=== PATIENT | male | born 1990 | race Caucasian/White ===

== ENCOUNTER 2018-01-27 22:31 | Inpatient (IN) | payer BC, MEDICAID ==
[2018-01-27] MEDS ORDERED: Sodium Chloride 0.9% 1000 ML 1,000 ML IV STA (23:15)
[2018-01-27] MEDS ORDERED: LEVOFLOXACIN 750MG/150ML D5W 750 MG/150 ML BAG IV STA (23:16)
[2018-01-27] MEDS ORDERED: Sodium Chloride 0.9% 1000 ML 1,000 ML ONE ×2 (23:20→23:32)
[2018-01-27] MEDS: Sodium Chloride 0.9% 1000 ML 1,000 ML IV SCH ×2 (23:22→23:39)
[2018-01-27] MEDS ORDERED: LEVOFLOXACIN 750MG/150ML D5W 750 MG/150 ML BAG IV ONE (23:32)
[2018-01-27] MEDS ORDERED: DUONEB 0.5-3 MG/3 ml Neb IH ONE ×2 (23:43→23:56)
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
[2018-01-27 23:51] LABS: Lactic Acid 3.1 (0.4-2.0)
[2018-01-27 23:54] LABS: VBG BASE EXCESS 2.3 (-2.0-2.0); VBG CARBOXYHEMOGLOBIN 4.3 % T HGB (0.0-6.9); VBG HCO3- 27.9 meq/L (22-28); VBG HEMOGLOBIN 18.2; VBG O2 SATURATION 63.2 (95-100); VBG POTASSIUM 4.3 (3.5-5.1); VBG pH 7.4 (7.32-7.42)
[2018-01-27 23:58] LABS: Granulocyte Absolute (ANC) 9.49 (1.4-6.9); Hematocrit 53.2 % (42-50); Hemoglobin 18.3 gm/dl (12.5-18.0); Mean Cell Volume 92.7 fl (78-100); Mean Corpuscular Hgb Concent. 34.4 g/dl (32-36); Mean Platelet Volume 12.2 fl (6-9.5); Platelet Count 235 K/mm3 (150-450); Red Blood Count 5.74 M/mm3 (4.1-5.6); Red Cell Distribution Width 14.9 % (11.5-14.0); White Blood Count 13.5 K/mm3 (4.0-10.5)
[2018-01-27 23:59] LABS: Mean Corpuscular Hemoglobin 31.8 pg (26-32)
[2018-01-28 00:10] LABS: INR 1.13 (0.8-3.0)
[2018-01-28 00:16] LABS: ALBUMIN 4.1 g/dL (3.5-5.0); ALKALINE PHOSPHATASE 190 U/L (38-126); ANION GAP 16.1 MEQ/L (5-15); BLOOD UREA NITROGEN 11 mg/dL (9-20); CHLORIDE 97 mmol/L (98-107); Calcium 9.6 mg/dL (8.4-10.2); Carbon Dioxide 28 mmol/L (22-30); Creatinine 1 0.43 mg/dL (0.66-1.25); Glucose 106 mg/dL (74-106); Potassium 4.3 mmol/L (3.5-5.1); SGOT/AST 161 U/L (17-59); SGPT/ALT 189 U/L (0-50); SODIUM 137 mmol/L (137-145); Total Protein 7.9 g/dL (6.3-8.2)
[2018-01-28] MEDS ORDERED: Sodium Chloride 0.9% 1000 ML 1,000 ML ONE ×2 (00:20→01:52)
[2018-01-28] MEDS ORDERED: Sodium Chloride 0.9% 1000 ML 1,000 ML IV STA (00:20)
[2018-01-28] MEDS ORDERED: Vancomycin 1GM/ Ns 250ML*** 1 GM/250 ML IVPB IV ONE (00:20)
[2018-01-28 00:34] LABS: INFLUENZA A NEGATIVE (NEGATIVE); INFLUENZA B NEGATIVE (NEGATIVE); RESPIRATORY SYNCTIAL VIRUS NEGATIVE (Negative)
[2018-01-28] MEDS ORDERED: FEVERALL 650 MG PR ONE (00:39)
[2018-01-28] MEDS ORDERED: FEVERALL 325 MG ONE (00:39)
[2018-01-28 00:52] LABS: Appearance CLEAR (CLEAR)
[2018-01-28 00:53] LABS: Bilirubin NEGATIVE (NEGATIVE); Blood NEGATIVE Ery/ul (0-5); Glucose NEGATIVE (NEGATIVE); Ketones NEGATIVE (NEGATIVE); Leukocyte Esterase NEGATIVE (NEGATIVE); Nitrite NEGATIVE (NEGATIVE); Protein,Urine Dip NEGATIVE (Negative); Urobilinogen NORMAL mg/dL (0-1)
[2018-01-28] MEDS ORDERED: Vancomycin 1GM/ Ns 250ML*** 250 ML IV ONE (01:09)
[2018-01-28] MEDS ORDERED: DUONEB 0.5-3 MG/3 ml Neb IH PRN (02:08)
[2018-01-28] MEDS ORDERED: Xopenex 1.25 MG/0.5 ML UD NEBULE IH PRN (02:08)
[2018-01-28] MEDS ORDERED: Sodium Chloride 0.9% 1000 ML 1,000 ML IV SCH (02:15)
[2018-01-28] MEDS ORDERED: VANCOCIN 1 GM VIAL*** 1 GM in Sodium Chloride 0.9% 250 ML 250 ML IV SCH (02:30)
[2018-01-28 03:06] LABS: ANISOCYTOSIS 1+; Lymphocytes 14 % (24-44); Monocyte 12 % (0.0-12.0); Neutrophils 74 % (36.-66.); Platelet Estimate NORMAL (NORMAL); Poikilocytosis 1+; Total Cells Counted 100
[2018-01-28] MEDS ORDERED: DUONEB 0.5-3 MG/3 ml Neb IH ONE (03:08)
[2018-01-28] MEDS: DUONEB 0.5-3 MG/3 ml Neb IH PRN (03:15)
[2018-01-28 06:18] LABS: ANION GAP 10.9 MEQ/L (5-15); BASOPHIL % 0.2 % (0.0-0.4); BLOOD UREA NITROGEN 9 mg/dL (9-20); Basophil (Absolute #) 0.02 (0-0.4); CHLORIDE 106 mmol/L (98-107); Calcium 7.8 mg/dL (8.4-10.2); Carbon Dioxide 25 mmol/L (22-30); Creatinine 1 0.27 mg/dL (0.66-1.25); Eosinophil (Absolute #) 0 (0-0.5); Glucose 113 mg/dL (74-106); Granulocyte Absolute (ANC) 9.07 (1.4-6.9); Granulocytes % 75.8 % (36.0-66.0); Hematocrit 39.5 % (42-50); Hemoglobin 13.5 gm/dl (12.5-18.0); Lymphocyte (Absolute #) 1.43 (1.0-4.6); Mean Corpuscular Hemoglobin 32.5 pg (26-32); Mean Corpuscular Hgb Concent. 34.2 g/dl (32-36); Mean Platelet Volume 12.4 fl (6-9.5); Monocyte (Absolute #) 1.44 (0.0-1.3); Platelet Count 177 K/mm3 (150-450); Potassium 3.8 mmol/L (3.5-5.1); Red Blood Count 4.16 M/mm3 (4.1-5.6); Red Cell Distribution Width 14.5 % (11.5-14.0); SODIUM 138 mmol/L (137-145)
[2018-01-28] MEDS: Sodium Chloride 0.9% 1000 ML 1,000 ML IV SCH ×2 (07:25→16:46)
[2018-01-28] MEDS ORDERED: PATIENT OWN MEDICATION IJ SCH (08:15)
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
[2018-01-28] MEDS: VANCOCIN 1 GM VIAL*** 1 GM in Sodium Chloride 0.9% 250 ML 250 ML IV SCH ×2 (09:05→17:01)
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
[2018-01-28] MEDS: Depakene 250 MG/5 ML Syrup G-TUBE SCH ×2 (09:25→20:52)
[2018-01-28] MEDS: MULTIVITAMIN LIQUID G-TUBE SCH (09:26)
[2018-01-28] MEDS: Robitussin 100 MG/5 ML PO SCH ×2 (09:28→20:51)
[2018-01-28] MEDS ORDERED: VALPROIC ACID 250 MG G-TUBE SCH (10:00)
[2018-01-28] MEDS ORDERED: BACLOFEN INTRATHEC SCH (10:00)
[2018-01-28] MEDS ORDERED: Levofloxacin 500MG/100ML D5W 500 MG/100 ML BAG IV SCH (10:00)
[2018-01-28] MEDS ORDERED: FERROUS FUM G-TUBE SCH (10:00)
[2018-01-28] MEDS ORDERED: MULTIVIT MINERALS G-TUBE SCH (10:00)
[2018-01-28] MEDS ORDERED: XYLOCAINE 1% HCL 20 ML MDV IJ ONE (14:27)
--- NOTE | 2018-01-28 15:15 | XRAY ---
Indication: Status post left thoracentesis. Comparison: One day earlier. Portable chest demonstrates marked clearing of the left effusion with residual trace effusion and atelectasis. No pneumothorax. Stable right base discoid atelectasis and support catheter/tubing. Heart is not enlarged. Impression: Status post left thoracentesis. No pneumothorax.
--- NOTE | 2018-01-28 15:45 | XRAY ---
Indication: Left pleural effusion. Thoracentesis for therapeutic and diagnostic purpose. Informed consent obtained with power of banking attorney. Initial sonographic imaging of the left lower back was performed for localization. Skin was prepped and draped in sterile fashion. 1% lidocaine plain used for local anesthesia. Tiny skin incision made. Then a 5 [place] M[place]ang thoracentesis catheter with introducer needle was inserted into the left hemithorax. Small flash of effusion seen in the syringe at which point the outer catheter was advanced and the inner needle removed. Catheter was then connected to a Vacutainer. Approximately 1.8 L dark marie/brown transudative fluid was aspirated. Fluid was sent to laboratory for analysis. Repeat sonogram demonstrates effusion clearing. Hemostasis achieved using digital pressure over the puncture site. Small Band-Aid applied. Postoperative instructions and orders given. Postprocedure chest radiograph pending. Impression: Technically successful left chest thoracentesis using ultrasound guidance for diagnostic and therapeutic purpose. Approximately 1.8 L aspirated. No immediate complications.
--- NOTE | 2018-01-28 16:21 | XRAY ---
Indication: Patient is bedbound. Two-dimensional sonogram and color Doppler imaging of the major venous vessels of the left and right leg was performed. Comparison: None No thrombus seen in the examined deep venous vessels of the left and right leg including greater saphenous veins. Veins demonstrate normal compressibility. Venous waveforms are normal with and without augmentation. Impression: Left and right leg negative for DVT.
[2018-01-28] MEDS: FEVERALL 650 MG PR PRN ×2 (19:35→23:39)
[2018-01-28] MEDS: Levofloxacin 500MG/100ML D5W 500 MG/100 ML BAG IV SCH (20:51)
[2018-01-28] MEDS ORDERED: VALPROIC ACID 500 MG PO SCH (22:00)
[2018-01-28] MEDS ORDERED: Vancomycin 1GM/ Ns 250ML*** 1 GM/250 ML IVPB IV SCH (22:00)
[2018-01-29] MEDS: VANCOCIN 1 GM VIAL*** 1 GM in Sodium Chloride 0.9% 250 ML 250 ML IV SCH ×4 (02:11→22:04)
[2018-01-29] MEDS: Sodium Chloride 0.9% 1000 ML 1,000 ML IV SCH ×2 (04:52→15:48)
[2018-01-29 05:56] LABS: BASOPHIL % 0.2 % (0.0-0.4); Basophil (Absolute #) 0.02 (0-0.4); Eosinophil % 1.2 % (0.00-5.0); Eosinophil (Absolute #) 0.11 (0-0.5); Granulocyte Absolute (ANC) 5.81 (1.4-6.9); Granulocytes % 60.8 % (36.0-66.0); Hematocrit 38.4 % (42-50); Hemoglobin 12.8 gm/dl (12.5-18.0); Lymphocytes % 23.1 % (24.0-44.0); Mean Cell Volume 96.5 fl (78-100); Mean Corpuscular Hgb Concent. 33.3 g/dl (32-36); Monocytes % 14.7 % (0.0-12.0); Platelet Count 162 K/mm3 (150-450); Red Blood Count 3.98 M/mm3 (4.1-5.6); Red Cell Distribution Width 14.5 % (11.5-14.0); White Blood Count 9.5 K/mm3 (4.0-10.5)
[2018-01-29 05:58] LABS: Mean Corpuscular Hemoglobin 32.1 pg (26-32)
[2018-01-29 06:10] LABS: ALBUMIN 2.5 g/dL (3.5-5.0); ALKALINE PHOSPHATASE 97 U/L (38-126); ANION GAP 7.5 MEQ/L (5-15); BLOOD UREA NITROGEN 4 mg/dL (9-20); CHLORIDE 108 mmol/L (98-107); Calcium 8.4 mg/dL (8.4-10.2); Carbon Dioxide 29 mmol/L (22-30); Creatinine 1 0.32 mg/dL (0.66-1.25); Glucose 89 mg/dL (74-106); Potassium 3.4 mmol/L (3.5-5.1); SGOT/AST 70 U/L (17-59); SGPT/ALT 113 U/L (0-50); SODIUM 141 mmol/L (137-145); Total Protein 5.2 g/dL (6.3-8.2)
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
--- NOTE | 2018-01-29 09:13 | XRAY ---
Indication: Follow-up left thoracentesis. Multiple contiguous axial images obtained through the chest using 80 cc Isovue 370 contrast and PE protocol. Comparison: None There is satisfactory opacification of the pulmonary arteries. However respiration artifact and beam artifact from patient's arms/hands limits evaluation of the more distal lobar/segmental branches especially in the right lung. No large central pulmonary embolus. Heart is not enlarged. Aorta is normal in course and caliber. 1.1 cm left superior mediastinal node. No pathologic mediastinal/hilar/axillary lymphadenopathy. Examination of the lung parenchyma demonstrates large left effusion greatest near the base occupying 1/3 of the hemithorax with compressive atelectasis. No pleural thickening or suspicious air bubbles/pneumothorax. Tiny right effusion and right base subsegmental atelectasis. Bony thorax grossly intact with epidural catheter terminating at the T1 level. There is also a anterior chest wall catheter incompletely visualized. Incidental bilateral gynecomastia. Limited upper abdomen is unremarkable. Impression: 1. Pulmonary embolus evaluation limited due to respiration and beam artifact. No large central pulmonary embolus. 2. Residual left effusion and left lung atelectasis as detailed. Tiny right effusion and right base atelectasis. CT DI 23.29
[2018-01-29] MEDS ORDERED: TROUGH DRUG LEVELS IJ ONE (09:30)
[2018-01-29] MEDS: Depakene 250 MG/5 ML Syrup G-TUBE SCH ×2 (09:43→20:56)
[2018-01-29] MEDS: MULTIVITAMIN LIQUID G-TUBE SCH (09:43)
[2018-01-29] MEDS: Robitussin 100 MG/5 ML PO SCH ×3 (09:46→20:55)
[2018-01-29] MEDS: HYDROCODONE-ACETAMIN 2.5-108/5 ML SOLUTION G-TUBE PRN ×2 (13:04→21:18)
[2018-01-29] MEDS: ENOXAPARIN SODIUM SQ SCH (13:04)
[2018-01-29] MEDS: DUONEB 0.5-3 MG/3 ml Neb IH PRN (19:23)
[2018-01-29] MEDS: Levofloxacin 500MG/100ML D5W 500 MG/100 ML BAG IV SCH (20:54)
[2018-01-30] MEDS ORDERED: MORPHINE SULFATE 2 MG INJ IV ONE (00:07)
[2018-01-30] MEDS: VANCOCIN 1 GM VIAL*** 1 GM in Sodium Chloride 0.9% 250 ML 250 ML IV SCH ×4 (03:39→22:55)
[2018-01-30] MEDS: Sodium Chloride 0.9% 1000 ML 1,000 ML IV SCH ×5 (03:39→22:08)
--- NOTE | 2018-01-30 08:40 | XRAY ---
Indication: Pneumonia. Comparison: January 28, 2018. Portable chest remains rotated and underinflated with interval increasing left effusion/atelectasis occupying at least 50% of the hemithorax. Stable right base atelectasis and support catheter/tubing. Heart is not enlarged.
[2018-01-30] MEDS: Miralax Powder 17GM PACKET PEG SCH (08:51)
[2018-01-30] MEDS: Robitussin 100 MG/5 ML PO SCH ×4 (08:51→21:03)
[2018-01-30] MEDS: ENOXAPARIN SODIUM SQ SCH (08:52)
[2018-01-30] MEDS: MULTIVITAMIN LIQUID G-TUBE SCH (08:52)
[2018-01-30] MEDS: Depakene 250 MG/5 ML Syrup G-TUBE SCH ×2 (08:52→21:05)
[2018-01-30] MEDS ORDERED: TROUGH DRUG LEVELS IJ ONE (09:30)
[2018-01-30 09:54] LABS: ALBUMIN 2.5 g/dL (3.5-5.0); ALKALINE PHOSPHATASE 95 U/L (38-126); ANION GAP 8.8 MEQ/L (5-15); BLOOD UREA NITROGEN 3 mg/dL (9-20); CHLORIDE 104 mmol/L (98-107); Calcium 8.1 mg/dL (8.4-10.2); Carbon Dioxide 32 mmol/L (22-30); Creatinine 1 0.29 mg/dL (0.66-1.25); Glucose 88 mg/dL (74-106); Potassium 3.1 mmol/L (3.5-5.1); SGOT/AST 30 U/L (17-59); SGPT/ALT 75 U/L (0-50); SODIUM 142 mmol/L (137-145); Total Protein 5.2 g/dL (6.3-8.2)
[2018-01-30 10:20] LABS: Hematocrit 37.9 % (42-50); Hemoglobin 12.4 gm/dl (12.5-18.0); Mean Cell Volume 97.4 fl (78-100); Mean Corpuscular Hemoglobin 31.8 pg (26-32); Mean Corpuscular Hgb Concent. 32.7 g/dl (32-36); Mean Platelet Volume 11.3 fl (6-9.5); Platelet Count 167 K/mm3 (150-450); Red Blood Count 3.89 M/mm3 (4.1-5.6); Red Cell Distribution Width 14.5 % (11.5-14.0)
[2018-01-30] MEDS ORDERED: XYLOCAINE 1% HCL 20 ML MDV ONE (10:36)
[2018-01-30] MEDS: MORPHINE SULFATE 2 MG INJ IV PRN ×3 (12:40→21:48)
[2018-01-30] MEDS: HYDROCODONE-ACETAMIN 2.5-108/5 ML SOLUTION G-TUBE PRN ×2 (15:16→23:03)
[2018-01-30] MEDS: K-LYTE 25 MEQ G-TUBE SCH ×2 (17:09→21:06)
[2018-01-30] MEDS: Levofloxacin 500MG/100ML D5W 500 MG/100 ML BAG IV SCH (21:06)
[2018-01-31] MEDS: MORPHINE SULFATE 2 MG INJ IV PRN ×2 (01:59→06:50)
[2018-01-31] MEDS: VANCOCIN 1 GM VIAL*** 1 GM in Sodium Chloride 0.9% 250 ML 250 ML IV SCH ×4 (03:58→22:53)
[2018-01-31] MEDS: Sodium Chloride 0.9% 1000 ML 1,000 ML IV SCH ×3 (03:58→21:46)
[2018-01-31] MEDS: HYDROCODONE-ACETAMIN 2.5-108/5 ML SOLUTION G-TUBE PRN (07:14)
--- NOTE | 2018-01-31 07:49 | XRAY ---
Indication: Follow-up pneumonia. Left-sided chest tube. Comparison: One day earlier. Portable chest unchanged. Patient again rotated/side bent with left-sided chest tube and support catheter/tubing. Stable large left effusion/atelectasis and right base atelectasis again obscuring the cardiac silhouette. No new cardiopulmonary abnormalities.
[2018-01-31] MEDS: FEVERALL 650 MG PR PRN (08:03)
[2018-01-31] MEDS: Depakene 250 MG/5 ML Syrup G-TUBE SCH ×2 (08:59→21:47)
[2018-01-31] MEDS: MULTIVITAMIN LIQUID G-TUBE SCH (08:59)
[2018-01-31] MEDS: Miralax Powder 17GM PACKET PEG SCH (08:59)
[2018-01-31] MEDS: K-LYTE 25 MEQ G-TUBE SCH ×2 (09:02→21:45)
[2018-01-31] MEDS: ENOXAPARIN SODIUM SQ SCH (09:03)
[2018-01-31] MEDS: Robitussin 100 MG/5 ML PO SCH ×4 (09:04→21:46)
[2018-01-31] MEDS ORDERED: MORPHINE SULFATE 2 MG INJ IV PRN (14:53)
--- NOTE | 2018-01-31 15:06 | PCM.NOTE ---
Date and Time: 01/31/18 1452 Subjective Assessment: Pt with 220 cc fluid (serous) out of the chest tube. He had a small amount of stool out yesterday but has not had his typical bowel movement and family are concerned about that. His O2 requirement is 4L NC. This is increased from 2L nC initially (and none at admission). Objective Exam General Appearance: no apparent distress, other (nonverbal; makes a noise at one point during exam. appears comfortable.) Neurologic Exam: other (spastic extremities) Skin Exam: normal color, warm, dry, No rash Respiratory Exam: diminished breath sounds (very decreased on L), No rhonchi Cardiovascular Exam: regular rate/rhythm, normal heart sounds, No murmur Extremity Exam: No pedal edema OBJECTIVE DATA Vital Signs: Vital Signs - 24 hr Temp Pulse Resp BP Pulse Ox 01/31/18 11:41 98.5 F 91 H 15 101/76 95 01/31/18 07:42 100.5 F 99 H 20 95/65 95 01/31/18 07:19 99 H 20 95 01/31/18 04:00 98.8 F 116 H 19 116/85 96 01/31/18 00:00 98.9 F 99 H 18 116/87 92 L 01/30/18 20:20 87 25 H 99 01/30/18 20:00 97.6 F 86 22 111/76 98 01/30/18 15:54 100 H 17 Oxygen-Last 24 hours O2 Percentage 4 Liters = 36% O2 Percentage 4 Liters = 36% O2 Percentage 5 Liters = 40% O2 Percentage 5 Liters = 40% O2 Percentage 4 Liters = 36% Oxygen Flowrate (L/min)-RT 4 Pain Assessment - Last Documented Pain Intensity 0 Pain Scale Used Mcfadden-Thurman Faces Intake and Output: Intake & Output 01/29/18 01/30/18 01/31/18 02/01/18 11:59 11:59 11:59 11:59 Intake Total 3222 4581 4313 360 Output Total 3400 2550 2860 Balance -178 2031 1453 360 Weight 68 kg 67.9 kg 65.9 kg Lab Results: Lab Results-Last 24 Hours 01/28/18 Range/Units 14:45 [employer] Tender Cyto Report See Note H Radiology Exams: Radiology Procedures Category Date Time Status CHEST 1 VIEW (PORTABLE) Routine Exams 01/30/18 12:13 Taken CHEST 1 VIEW (PORTABLE) Routine Exams 01/31/18 05:00 Completed CHEST 1 VIEW (PORTABLE) Routine Exams 01/31/18 06:00 Ordered CHEST 1 VIEW (PORTABLE) Urgent Exams 01/30/18 08:00 Completed Assessment/Plan (1) Pleural effusion Current Visit: Yes Status: Acute Assessment & Plan: It is large, stable on yesterday's report and today's CXR with quite a bit of rotation but looks stable to me (report pending). The chest tube is draining. I spoke with Dr. Salas, surgery, and since the tube is draining well from their perspective he does not believe anything else needs to be done. Code(s): J90 - PLEURAL EFFUSION, NOT ELSEWHERE CLASSIFIED (2) Pneumonia Current Visit: Yes Status: Acute Onset Date: ~01/28/18 Qualifiers: Pneumonia type: due to unspecified organism Laterality: unspecified laterality Lung location: unspecified part of lung Qualified Code(s): J18.9 - Pneumonia, unspecified organism Assessment & Plan: On IV vancomycin day #3 and levaquin, day #4. Temp to 100.5 this morning and WBC from 9 to 12.5. Prior to this, his last elevated temperature was to 100.6 on 01/29/18. Changing levaquin to merropenem 1g IV q8h. Repeating CXR and will discuss with Dr. Childs. 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 Family are convinced this is contributing to his pleural effusion, I did try to explain that it is not. Code(s): K59.00 - CONSTIPATION, UNSPECIFIED
[2018-01-31] MEDS ORDERED: CITROMA 296 ML G-TUBE ONE (15:17)
[2018-01-31] MEDS ORDERED: HYDROCODONE-ACETAMIN 2.5-108/5 ML SOLUTION G-TUBE PRN (16:12)
[2018-01-31] MEDS: Merrem 1 GM 1 G in Sodium Chloride 100ML MINI-BAG PLUS 100 ML IV SCH ×2 (16:30→21:47)
--- NOTE | 2018-01-31 22:24 | XRAY ---
Indication: Persistent effusion. Comparison: Taken earlier in the day. Single portable chest again side bent and rotated with stable support catheter/tubing including left-sided chest tube. Minimal decreased left effusion/atelectasis with stable right base atelectasis. Heart is not enlarged. No new cardiopulmonary findings. Comment: Preliminary interpretation was made by [facility]. No discrepancy.
--- NOTE | 2018-01-31 22:27 | XRAY ---
Indication: No bowel movements. Comparison: None KUB demonstrates mild diffuse scattered fecal debris greatest in the descending, sigmoid, and rectum. No focal bowel dilatation/obstruction. Solid organs unremarkable. Osseous structures intact with levorotoscoliosis. Shunt catheter coiled in the pelvis. There is a right-sided spinal stimulator device with partially visualized single lead. Impression: Fecal stasis without obstruction. Comment: Preliminary interpretation was made by [facility]. No critical discrepancy.
[2018-02-01] MEDS: VANCOCIN 1 GM VIAL*** 1 GM in Sodium Chloride 0.9% 250 ML 250 ML IV SCH ×2 (04:35→11:39)
[2018-02-01] MEDS: Sodium Chloride 0.9% 1000 ML 1,000 ML IV SCH ×3 (04:35→21:36)
[2018-02-01 06:07] LABS: BASOPHIL % 0.1 % (0.0-0.4); Basophil (Absolute #) 0.01 (0-0.4); Eosinophil % 1.3 % (0.00-5.0); Eosinophil (Absolute #) 0.15 (0-0.5); Granulocyte Absolute (ANC) 8.97 (1.4-6.9); Granulocytes % 77.3 % (36.0-66.0); Hematocrit 36.4 % (42-50); Hemoglobin 11.9 gm/dl (12.5-18.0); Lymphocyte (Absolute #) 1.45 (1.0-4.6); Lymphocytes % 12.5 % (24.0-44.0); Mean Cell Volume 98.4 fl (78-100); Mean Corpuscular Hgb Concent. 32.7 g/dl (32-36); Mean Platelet Volume 11.3 fl (6-9.5); Monocyte (Absolute #) 1.02 (0.0-1.3); Monocytes % 8.8 % (0.0-12.0); Platelet Count 174 K/mm3 (150-450); Red Cell Distribution Width 14.6 % (11.5-14.0); White Blood Count 11.6 K/mm3 (4.0-10.5)
[2018-02-01 06:10] LABS: Mean Corpuscular Hemoglobin 32.1 pg (26-32)
[2018-02-01 06:50] LABS: ALBUMIN 2.5 g/dL (3.5-5.0); ALKALINE PHOSPHATASE 100 U/L (38-126); ANION GAP 7.3 MEQ/L (5-15); BLOOD UREA NITROGEN 5 mg/dL (9-20); CHLORIDE 101 mmol/L (98-107); Calcium 8.5 mg/dL (8.4-10.2); Carbon Dioxide 35 mmol/L (22-30); Creatinine 1 0.33 mg/dL (0.66-1.25); Glucose 92 mg/dL (74-106); Potassium 3.7 mmol/L (3.5-5.1); SGOT/AST 24 U/L (17-59); SGPT/ALT 45 U/L (0-50); SODIUM 140 mmol/L (137-145); Total Protein 5.1 g/dL (6.3-8.2)
[2018-02-01] MEDS: Merrem 1 GM 1 G in Sodium Chloride 100ML MINI-BAG PLUS 100 ML IV SCH ×3 (07:38→21:36)
[2018-02-01] MEDS: Robitussin 100 MG/5 ML PO SCH ×4 (09:06→21:35)
[2018-02-01] MEDS: Depakene 250 MG/5 ML Syrup G-TUBE SCH ×2 (10:50→21:36)
[2018-02-01] MEDS: K-LYTE 25 MEQ G-TUBE SCH ×2 (10:51→21:35)
[2018-02-01] MEDS: Miralax Powder 17GM PACKET PEG SCH (10:52)
[2018-02-01] MEDS: MULTIVITAMIN LIQUID G-TUBE SCH (10:57)
--- NOTE | 2018-02-01 11:58 | PCM.NOTE ---
Date and Time: 02/01/18 1152 Subjective Assessment: He had a small BM yesterday with mag citrate; his KUB showed stool but no impaction. CXR yesterday on repeat ended up showing some improvement. Afebrile x 24 hrs. Objective Exam General Appearance: no apparent distress, alert, other (nonverbal) Neurologic Exam: other (spastic upper and lower extremities. makes noises intermittently during exam) Skin Exam: normal color, warm, dry, No rash Respiratory Exam: diminished breath sounds (very decreased on L), No rhonchi, No wheezing Cardiovascular Exam: regular rate/rhythm, normal heart sounds, No murmur Extremity Exam: pedal edema (1+ pedal/ankle edema) OBJECTIVE DATA Vital Signs: Vital Signs - 24 hr Temp Pulse Resp BP Pulse Ox 02/01/18 08:00 98.4 F 80 18 105/64 96 02/01/18 07:26 84 18 92 L 02/01/18 04:00 98 F 74 18 92/62 97 02/01/18 00:00 98.7 F 94 H 18 112/75 97 01/31/18 19:52 78 15 99 01/31/18 19:48 98 F 84 20 103/72 98 01/31/18 16:00 99 F 86 13 105/73 99 Oxygen-Last 24 hours O2 Percentage 4 Liters = 36% O2 Percentage 4 Liters = 36% O2 Percentage 4 Liters = 36% O2 Percentage 4 Liters = 36% O2 Percentage 4 Liters = 36% Oxygen Flowrate (L/min)-RT 4 Oxygen Flowrate (L/min)-RT 4 Pain Assessment - Last Documented Pain Intensity 0 Pain Scale Used [facility] Intake and Output: Intake & Output 01/29/18 01/30/18 01/31/18 02/01/18 11:59 11:59 11:59 11:59 Intake Total 3222 4581 4313 3804 Output Total 3400 2550 2860 2920 Balance -178 2031 1453 884 Weight 68 kg 67.9 kg 65.9 kg 70 kg Lab Results: Lab Results-Last 24 Hours 01/31/18 02/01/18 02/01/18 Range/Units 15:45 05:00 05:45 WBC 11.6 H (4.0-10.5) K/mm3 RBC 3.70 L (4.1-5.6) M/mm3 Hgb 11.9 L (12.5-18.0) gm/dl Hct 36.4 L (42-50) % MCV 98.4 (78-100) fl MCH 32.1 H (26-32) pg MCHC 32.7 (32-36) g/dl RDW 14.6 H (11.5-14.0) % Plt Count 174 (150-450) K/mm3 MPV 11.3 H (6-9.5) fl Gran % 77.3 H (36.0-66.0) % Eos # (Auto) 0.15 (0-0.5) Absolute Lymphs (auto) 1.45 (1.0-4.6) Absolute Monos (auto) 1.02 (0.0-1.3) Lymphocytes % 12.5 L (24.0-44.0) % Monocytes % 8.8 (0.0-12.0) % Eosinophils % 1.3 (0.00-5.0) % Basophils % 0.1 (0.0-0.4) % Absolute Granulocytes 8.97 H (1.4-6.9) Basophils # 0.01 (0-0.4) Sodium 140 (137-145) mmol/L Potassium 3.7 (3.5-5.1) mmol/L Chloride 101 (98-107) mmol/L Carbon Dioxide 35 H (22-30) mmol/L Anion Gap 7.3 (5-15) MEQ/L BUN 5 L (9-20) mg/dL Creatinine 0.33 L (0.66-1.25) mg/dL Estimated GFR > 60.0 ML/MIN Glucose 92 (74-106) mg/dL Calcium 8.5 (8.4-10.2) mg/dL Total Bilirubin 0.30 (0.2-1.3) mg/dL AST 24 (17-59) U/L ALT 45 (0-50) U/L Alkaline Phosphatase 100 (38-126) U/L Serum Total Protein 5.1 L (6.3-8.2) g/dL Albumin 2.5 L (3.5-5.0) g/dL Valproic Acid 21.1 L (50-100) ug/mL Radiology Exams: Radiology Procedures Category Date Time Status CHEST 1 VIEW (PORTABLE) Routine Exams 01/30/18 12:13 Taken CHEST 1 VIEW (PORTABLE) Routine Exams 01/31/18 05:00 Completed CHEST 1 VIEW (PORTABLE) Routine Exams 01/31/18 06:00 Ordered CHEST 1 VIEW (PORTABLE) Routine Exams 02/02/18 07:00 Ordered CHEST 1 VIEW (PORTABLE) Urgent Exams 01/31/18 15:22 Completed KUB Stat Exams 01/31/18 15:22 Completed Assessment/Plan (1) Pleural effusion Current Visit: Yes Status: Acute Assessment & Plan: will recheck cxr today, had some improvement yesterday. Code(s): J90 - PLEURAL EFFUSION, NOT ELSEWHERE CLASSIFIED (2) Pneumonia Current Visit: Yes Status: Acute Onset Date: ~01/28/18 Qualifiers: Pneumonia type: due to unspecified organism Laterality: unspecified laterality Lung location: unspecified part of lung Qualified Code(s): J18.9 - Pneumonia, unspecified organism Assessment & Plan: changed antibiotics to merrem and vancomycin yesterday as his temp was slightly elevated to 100.5; Day #2 of meropenem today. Vancomycin stopped today after discussing with pharmacy. So initially he had 4 days of levaquin and 4 d of vancomycin. afebrile for the past 24h. WBC slightly decreased. recheck tomorrow. 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 Code(s): K59.00 - CONSTIPATION, UNSPECIFIED
[2018-02-01] MEDS ORDERED: CITROMA 296 ML PO ONE (11:59)
[2018-02-01] MEDS ORDERED: Dulcolax 10 MG SUPP PR ONE (11:59)
[2018-02-01] MEDS: ENOXAPARIN SODIUM SQ SCH (12:48)
[2018-02-01] MEDS ORDERED: Triple Antibiotic Ointment TP PRN (14:56)
--- NOTE | 2018-02-01 19:46 | XRAY ---
Indication: Follow-up chest tube and pleural effusion. Comparison: One day earlier. Portable chest again side bent and rotated with stable support catheter/tubing including left sided chest tube. Little to no improvement in the large left effusion/atelectasis. Stable right base atelectasis. Heart is not enlarged. No new cardiopulmonary abnormalities. Comment: Preliminary interpretation was made by C. No discrepancy.
[2018-02-02] MEDS: Sodium Chloride 0.9% 1000 ML 1,000 ML IV SCH ×3 (02:02→17:18)
[2018-02-02] MEDS: Merrem 1 GM 1 G in Sodium Chloride 100ML MINI-BAG PLUS 100 ML IV SCH ×3 (05:06→23:49)
[2018-02-02 05:59] LABS: BASOPHIL % 0.2 % (0.0-0.4); Basophil (Absolute #) 0.02 (0-0.4); Eosinophil % 1.9 % (0.00-5.0); Granulocytes % 72.9 % (36.0-66.0); Hematocrit 37.4 % (42-50); Hemoglobin 12.1 gm/dl (12.5-18.0); Lymphocyte (Absolute #) 1.78 (1.0-4.6); Lymphocytes % 16.7 % (24.0-44.0); Mean Cell Volume 98.4 fl (78-100); Mean Corpuscular Hemoglobin 31.8 pg (26-32); Mean Corpuscular Hgb Concent. 32.4 g/dl (32-36); Mean Platelet Volume 11.2 fl (6-9.5); Monocyte (Absolute #) 0.89 (0.0-1.3); Monocytes % 8.3 % (0.0-12.0); Platelet Count 186 K/mm3 (150-450); Red Cell Distribution Width 14.3 % (11.5-14.0); White Blood Count 10.7 K/mm3 (4.0-10.5)
[2018-02-02 06:16] LABS: ALBUMIN 2.5 g/dL (3.5-5.0); ALKALINE PHOSPHATASE 105 U/L (38-126); ANION GAP 9.1 MEQ/L (5-15); BLOOD UREA NITROGEN 6 mg/dL (9-20); CHLORIDE 102 mmol/L (98-107); Calcium 8.5 mg/dL (8.4-10.2); Carbon Dioxide 34 mmol/L (22-30); Creatinine 1 0.31 mg/dL (0.66-1.25); Glucose 100 mg/dL (74-106); Potassium 3.8 mmol/L (3.5-5.1); SGOT/AST 47 U/L (17-59); SGPT/ALT 58 U/L (0-50); SODIUM 141 mmol/L (137-145); Total Protein 5.3 g/dL (6.3-8.2)
--- NOTE | 2018-02-02 08:42 | XRAY ---
Indication: Follow-up effusion. Comparison: One day earlier. Portable chest unchanged again underinflated with left effusion/atelectasis, right base atelectasis, and support catheter/tubing. Heart is not enlarged. No new abnormalities.
[2018-02-02] MEDS: Robitussin 100 MG/5 ML PO SCH ×4 (09:11→23:53)
[2018-02-02] MEDS: MULTIVITAMIN LIQUID G-TUBE SCH (09:12)
[2018-02-02] MEDS: K-LYTE 25 MEQ G-TUBE SCH ×2 (09:14→23:53)
[2018-02-02] MEDS: Depakene 250 MG/5 ML Syrup G-TUBE SCH ×2 (09:14→23:53)
[2018-02-02] MEDS: ENOXAPARIN SODIUM SQ SCH (09:14)
[2018-02-02] MEDS: Miralax Powder 17GM PACKET PEG SCH (09:14)
--- NOTE | 2018-02-02 09:29 | XRAY ---
Indication: Chest tube placement. Comparison: Taken earlier in the day. Limited portable chest obtained with special attention to the left thorax demonstrates a new chest tube with the tip slightly coiled in the apex. Stable left effusion/atelectasis and support catheter/tubing. No pneumothorax.
--- NOTE | 2018-02-02 10:36 | OP ---
SURGERY DATE/TIME: 01/30/2018 1201 PREOPERATIVE DIAGNOSIS: Recurrent left pleural effusion with pneumonia. POSTOPERATIVE DIAGNOSIS: Recurrent left pleural effusion with pneumonia. PROCEDURE: Left chest tube. SURGEON: Jasson Mcghee M.D. IT TECHNICAL SPECIALIST: Dr. Cervantes, [facility] Resident II. ANESTHESIA: Slight MAC provided by anesthesia. INDICATION: The patient has persistent recurrent fluid. He had thoracentesis two days earlier. He has known diagnosis of pneumonia and is complicated by left pleural effusion. Chest tube was requested. The family is aware that he is a very tedious patient that he is probably not a ventilator patient or full resuscitate patient but definitely a palliative comfort patient. He is markedly debilitated. He has a button PEG. DESCRIPTION OF PROCEDURE: He is taken to surgery bumped up on the side. Routine prep and drape. Fluoro was available. Fifth interspace mid axillary line 1% lidocaine. A slight MAC provided by anesthesia. The pleural space was opened with clamp. It was enlarged with fingertip and then the tube was advanced to the apex. It was secured with 0 PDS. Vaseline gauze, sterile dressing. Hooked to suction 20 cm about 200 cc of clear effluent was obtained additionally. Fluoro was satisfactory. The patient tolerated the procedure satisfactorily.
[2018-02-03] MEDS: Sodium Chloride 0.9% 1000 ML 1,000 ML IV SCH ×2 (02:06→16:19)
[2018-02-03] MEDS: Merrem 1 GM 1 G in Sodium Chloride 100ML MINI-BAG PLUS 100 ML IV SCH ×3 (05:36→21:35)
[2018-02-03] MEDS: Robitussin 100 MG/5 ML PO SCH ×4 (10:30→21:31)
[2018-02-03] MEDS: Miralax Powder 17GM PACKET PEG SCH (10:35)
[2018-02-03] MEDS: K-LYTE 25 MEQ G-TUBE SCH ×2 (10:36→21:33)
[2018-02-03] MEDS: ENOXAPARIN SODIUM SQ SCH (10:37)
[2018-02-03] MEDS: MULTIVITAMIN LIQUID G-TUBE SCH (10:38)
[2018-02-03] MEDS: Depakene 250 MG/5 ML Syrup G-TUBE SCH ×2 (10:38→21:33)
--- NOTE | 2018-02-03 10:42 | XRAY ---
Indication: Long-term IV access and therapy for infection/pneumonia. Informed consent obtained. Patient was placed on the fluoroscopic table in a supine position. Initial sonographic imaging of the left upper extremity was performed for localization of patent veins. The left upper extremity was then prepped and draped in sterile fashion. Tourniquet applied. 1% lidocaine plain used for local anesthesia. Using ultrasound guidance and a micropuncture needle, a basilic vein above the elbow was successfully percutaneously cannulized. A floppy tip 0.018 guidewire inserted. Tourniquet released. Needle was exchanged for a 5 Nigerian dilator peel-away sheath catheter. Ultimately a 5 Nigerian double-lumen PICC line was inserted over a longer 0.018 guidewire with the tip positioned in the distal SVC using fluoroscopic guidance. Guidewire removed. Both ports flushed with heparinized saline. Catheter was secured. Postoperative instructions and orders given. Patient discharged in good condition. Impression: Technically successful left upper extremity PICC line placement using ultrasound and fluoroscopic guidance. No immediate complications. Approximately 2 cc blood loss. Approximately 1.3 minute of fluoroscopy used. Catheter length is 37.5 cm.
--- NOTE | 2018-02-03 10:44 | XRAY ---
Indication: Ultrasound guidance for PICC line placement. Initial sonographic imaging of the left upper extremity was performed for localization of patent veins. A patent basilic vein identified above the elbow. Ultrasound guidance was then used for PICC line insertion. Full PICC line insertion is reported separately.
[2018-02-03] MEDS ORDERED: HEPARIN-NS 1,000 UNITS/500 ML IV ONE (11:22)
[2018-02-04] MEDS: Merrem 1 GM 1 G in Sodium Chloride 100ML MINI-BAG PLUS 100 ML IV SCH ×3 (05:42→21:31)
[2018-02-04 05:58] LABS: BASOPHIL % 0.4 % (0.0-0.4); Basophil (Absolute #) 0.04 (0-0.4); Granulocyte Absolute (ANC) 7.26 (1.4-6.9); Hematocrit 36.3 % (42-50); Lymphocytes % 19.6 % (24.0-44.0); Mean Corpuscular Hemoglobin 31.4 pg (26-32); Mean Corpuscular Hgb Concent. 33.1 g/dl (32-36); Mean Platelet Volume 10.9 fl (6-9.5); Monocyte (Absolute #) 0.72 (0.0-1.3); Platelet Count 226 K/mm3 (150-450); Red Blood Count 3.82 M/mm3 (4.1-5.6); Red Cell Distribution Width 13.8 % (11.5-14.0); White Blood Count 10.2 K/mm3 (4.0-10.5)
[2018-02-04 06:14] LABS: ANION GAP 9.6 MEQ/L (5-15); BLOOD UREA NITROGEN 6 mg/dL (9-20); CHLORIDE 99 mmol/L (98-107); Calcium 8.7 mg/dL (8.4-10.2); Carbon Dioxide 34 mmol/L (22-30); Glucose 94 mg/dL (74-106); Potassium 3.8 mmol/L (3.5-5.1); SODIUM 138 mmol/L (137-145)
--- NOTE | 2018-02-04 08:01 | PCM.NOTE ---
Date and Time: 02/04/18 0754 Subjective Assessment: per father at bedside seems more comfortable still having significant output from the chest tube they did turn fluids down yesterday Objective Exam General Appearance: no apparent distress Neurologic Exam: other (eyes open bilateral upper and lower extremity contractures.) Skin Exam: warm, dry Ears, Nose, Throat Exam: moist mucous membranes Neck Exam: non-tender, supple Respiratory Exam: normal breath sounds, other (left sided chest tube in place with serosangenous pleural fluid drainage) Cardiovascular Exam: regular rate/rhythm, No murmur Gastrointestinal/Abdomen Exam: soft, normal bowel sounds, other (baclofen pump right lower quadrant button peg left upper quadrant), No tenderness Extremity Exam: deformities, other (picc left arm) OBJECTIVE DATA Vital Signs: Vital Signs - 24 hr Temp Pulse Resp BP Pulse Ox 02/04/18 07:45 97.6 F 87 18 149/64 93 L 02/04/18 04:00 96.9 F 102 H 13 140/66 92 L 02/04/18 00:00 97.9 F 78 20 115/62 95 02/03/18 20:00 96.5 F 80 20 110/72 96 02/03/18 19:09 115 H 22 93 L 02/03/18 16:00 97.7 F 70 16 121/71 97 02/03/18 12:21 98.5 F 77 18 110/63 93 L 02/03/18 12:00 18 02/03/18 11:09 68 18 93 L 02/03/18 10:16 67 16 97 02/03/18 08:00 18 Oxygen-Last 24 hours O2 Percentage 1 Liter = 24% O2 Percentage 1 Liter = 24% O2 Percentage 1 Liter = 24% O2 Percentage 1 Liter = 24% O2 Percentage 1 Liter = 24% O2 Percentage 2 Liters = 28% Pain Assessment - Last Documented Pain Intensity 0 [facility] Scale [facility] Intake and Output: Intake & Output 02/01/18 02/02/18 02/03/18 02/04/18 11:59 11:59 11:59 11:59 Intake Total 3804 4955 2812 1277 Output Total 2920 5210 4330 4290 Balance 884 -255 -1518 -3013 Weight 70 kg 69 kg 72.1 kg 68.6 kg Lab Results: Lab Results-Last 24 Hours 02/04/18 02/04/18 Range/Units 05:45 05:45 WBC 10.2 (4.0-10.5) K/mm3 RBC 3.82 L (4.1-5.6) M/mm3 Hgb 12.0 L (12.5-18.0) gm/dl Hct 36.3 L (42-50) % MCV 95.0 (78-100) fl MCH 31.4 (26-32) pg MCHC 33.1 (32-36) g/dl RDW 13.8 (11.5-14.0) % Plt Count 226 (150-450) K/mm3 MPV 10.9 H (6-9.5) fl Gran % 71.0 H (36.0-66.0) % Eos # (Auto) 0.20 (0-0.5) Absolute Lymphs (auto) 2.00 (1.0-4.6) Absolute Monos (auto) 0.72 (0.0-1.3) Lymphocytes % 19.6 L (24.0-44.0) % Monocytes % 7.0 (0.0-12.0) % Eosinophils % 2.0 (0.00-5.0) % Basophils % 0.4 (0.0-0.4) % Absolute Granulocytes 7.26 H (1.4-6.9) Basophils # 0.04 (0-0.4) Sodium 138 (137-145) mmol/L Potassium 3.8 (3.5-5.1) mmol/L Chloride 99 (98-107) mmol/L Carbon Dioxide 34 H (22-30) mmol/L Anion Gap 9.6 (5-15) MEQ/L BUN 6 L (9-20) mg/dL Creatinine 0.30 L (0.66-1.25) mg/dL Estimated GFR > 60.0 ML/MIN Glucose 94 (74-106) mg/dL Calcium 8.7 (8.4-10.2) mg/dL Radiology Exams: Radiology Procedures Category Date Time Status CHEST 1 VIEW (PORTABLE) Routine Exams 02/02/18 07:00 Completed GUIDE FOR VASCULAR ACCESS [US] Routine Exams 02/03/18 08:07 Completed PICC LINE PLACEMENT Routine Exams 02/03/18 10:29 Completed Assessment/Plan (1) Pleural effusion Current Visit: Yes Status: Acute Assessment & Plan: day 5 of meropenem persistent chest tube output followed by pulmonology and surgery. pulm wants < 100 mL/ 24h prior to d/c chest tube last 24hr recorded 750 mL out on tube feedings dvt ppx with lovennox pleural fluid culture and cytology negative still very fluid positive the iv fluids were decreased yesterday to 30 cc /h he is on tube feedings now consistent with his maintenence will stop iv fluids and continue tube feeds monitor pleural fluid output Code(s): J90 - PLEURAL EFFUSION, NOT ELSEWHERE CLASSIFIED (2) Pneumonia Current Visit: Yes Status: Acute Onset Date: ~01/28/18 Qualifiers: Pneumonia type: due to unspecified organism Laterality: unspecified laterality Lung location: unspecified part of lung Qualified Code(s): J18.9 - Pneumonia, unspecified organism Code(s): J18.9 - PNEUMONIA, UNSPECIFIED ORGANISM (3) Acute respiratory failure with hypoxia Current Visit: Yes Status: Acute Code(s): J96.01 - ACUTE RESPIRATORY FAILURE WITH HYPOXIA (4) Spastic paralysis Current Visit: Yes Status: Chronic Code(s): G83.9 - PARALYTIC SYNDROME, UNSPECIFIED
[2018-02-04] MEDS: Robitussin 100 MG/5 ML PO SCH ×4 (08:52→21:36)
[2018-02-04] MEDS: Depakene 250 MG/5 ML Syrup G-TUBE SCH ×2 (08:53→21:38)
[2018-02-04] MEDS: ENOXAPARIN SODIUM SQ SCH (08:54)
[2018-02-04] MEDS: K-LYTE 25 MEQ G-TUBE SCH ×2 (08:55→21:37)
[2018-02-04] MEDS: Miralax Powder 17GM PACKET PEG SCH (08:55)
[2018-02-04] MEDS: MULTIVITAMIN LIQUID G-TUBE SCH (08:56)
[2018-02-05] MEDS: Merrem 1 GM 1 G in Sodium Chloride 100ML MINI-BAG PLUS 100 ML IV SCH ×3 (06:51→21:32)
--- NOTE | 2018-02-05 08:32 | XRAY ---
Indication: Follow-up pneumonia, septicemia, and chest tube. Comparison: February 02, 2018. Portable chest demonstrates little clearing of the left effusion/atelectasis with stable right base atelectasis and support catheter/tubing. Heart is not enlarged. No new abnormalities.
--- NOTE | 2018-02-05 08:50 | PCM.NOTE ---
Date and Time: 02/05/18843 Subjective Assessment: tolerated the wean of the oxygen to room air was more uncomfortable it appeared last night nad did not sleep until 4 am per the grandmotehr last dose of pain medication was 7pm last night he has had decreased pleural fluid output and has had 2 BM Objective Exam General Appearance: no apparent distress, other (eyes open looks to the right has spasticity of bilateral upper and lower extremities.) Respiratory Exam: normal breath sounds, other (chest tube left side) Cardiovascular Exam: regular rate/rhythm Gastrointestinal/Abdomen Exam: soft, normal bowel sounds, other (G tube in place and baclofen pump in place), No tenderness, No distention Extremity Exam: other (spasticity trace edema left foot. picc left arm) OBJECTIVE DATA Vital Signs: Vital Signs - 24 hr Temp Pulse Resp BP Pulse Ox 02/05/18 07:04 89 21 92 L 02/05/18 07:03 98.5 F 84 18 124/78 95 02/05/18 04:00 97.7 F 84 16 124/78 92 L 02/05/18 00:00 96.7 F 89 15 112/75 93 L 02/04/18 20:00 20 02/04/18 19:02 96.3 F 83 20 112/70 90 L 02/04/18 16:00 98.7 F 73 16 122/69 91 L 02/04/18 12:00 97.6 F 122 H 16 142/55 91 L 02/04/18 10:00 94 L Pain Assessment - Last Documented Pain Intensity 0 Pain Scale Used [facility] Intake and Output: Intake & Output 02/02/18 02/03/18 02/04/18 02/05/18 11:59 11:59 11:59 11:59 Intake Total 5245 2812 1647 720 Output Total 5210 4330 4290 5 [facility] -255 -1518 -2643 -1315 Weight 69 kg 72.1 kg 68.6 kg 68.1 kg Radiology Exams: Radiology Procedures Category Date Time Status CHEST 1 VIEW (PORTABLE) Routine Exams 02/05/18 07:00 Completed GUIDE FOR VASCULAR ACCESS [US] Routine Exams 02/03/18 08:07 Completed PICC LINE PLACEMENT Routine Exams 02/03/18 10:29 Completed Multi-Disciplinary Progress Notes: Multi-Disciplinary Progress Notes 02/04/18 14:20 (created 02/04/18 15:19) Case Management Note by Yahaira Kruse DISCHARGE PLAN REVIEWED WITH DR. Marnie MITCHELL. REPORTS THAT HE WOULD LIKE FOR PT TO HAVE C SERVICES ON DISCHARGE FOR A FEW WEEKS. REPORTS THAT THEY CAN DO PORTABLE CXR AT HOME RATHER THAN HAVE TO TAKE PT OUT. REPORTS THAT [facility] CAN PROVIDE THAT SERVICE. WILL DISCUSS WITH PARENTS. Initialized on 02/04/18 15:19 - END OF NOTE Assessment/Plan (1) Pleural effusion Current Visit: Yes Status: Acute Assessment & Plan: day 6 of meropenem greatly decreased output of pleural fluid with the fluid restriction still with effusion and atelectasis persistent on the cxr pulmonology Dr. Juarez following will help decide on duration of antibiotics and duration of chest tube cxr had about 110 out recorded over last 24h but had an additional 100 mL out this morning after cxr with his movement it appears. Code(s): J90 - PLEURAL EFFUSION, NOT ELSEWHERE CLASSIFIED (2) Pneumonia Current Visit: Yes Status: Acute Onset Date: ~01/28/18 Qualifiers: Pneumonia type: due to unspecified organism Laterality: unspecified laterality Lung location: unspecified part of lung Qualified Code(s): J18.9 - Pneumonia, unspecified organism Code(s): J18.9 - PNEUMONIA, UNSPECIFIED ORGANISM (3) Acute respiratory failure with hypoxia Current Visit: Yes Status: Acute Code(s): J96.01 - ACUTE RESPIRATORY FAILURE WITH HYPOXIA (4) Spastic paralysis Current Visit: Yes Status: Chronic Code(s): G83.9 - PARALYTIC SYNDROME, UNSPECIFIED
[2018-02-05] MEDS: K-LYTE 25 MEQ G-TUBE SCH ×2 (09:01→21:32)
[2018-02-05] MEDS: Miralax Powder 17GM PACKET PEG SCH (09:02)
[2018-02-05] MEDS: Depakene 250 MG/5 ML Syrup G-TUBE SCH ×2 (09:03→21:32)
[2018-02-05] MEDS: ENOXAPARIN SODIUM SQ SCH (09:03)
[2018-02-05] MEDS: Robitussin 100 MG/5 ML PO SCH ×4 (09:04→21:32)
[2018-02-05] MEDS: MULTIVITAMIN LIQUID G-TUBE SCH (09:05)
[2018-02-05] MEDS: TYLENOL SUSPENSION 160 MG/5 ML G-TUBE PRN (10:51)
[2018-02-06] MEDS: TYLENOL SUSPENSION 160 MG/5 ML G-TUBE PRN (02:25)
[2018-02-06] MEDS: Merrem 1 GM 1 G in Sodium Chloride 100ML MINI-BAG PLUS 100 ML IV SCH (06:24)
[2018-02-06 07:30] VITALS: BP 110/62; PULSE 107; O2SAT 92
--- NOTE | 2018-02-06 08:33 | PCM.DCORD ---
- Discharge Discharge Date: 02/06/18 Disposition: Home, Self-Care Condition: Stable Prescriptions: New Sulfamethoxazole/Trimethoprim [Septra Suspension] 10 ml PEG BID #100 ml Continue Valproic Acid [Depakene] 500 mg PO HS Baclofen [Lioresal Intrathecal] 428 gm INTRATHEC DAILY Valproic Acid [Depakene] 250 mg G-TUBE DAILY Multivit-Minerals/Ferrous Fum [Multivitamin Liquid] 1 dose G-TUBE DAILY Additional Instructions: Provide family his office [phone] on d/c for anything concerns or questions prn. Home health RN and aid evaluate and treat Follow up with: SOSA BRICEÑO [Primary Care Provider] - 1 Week
[2018-02-06] MEDS: K-LYTE 25 MEQ G-TUBE SCH (09:03)
--- NOTE | 2018-02-06 09:03 | XRAY ---
Indication: Chest tube removal. Comparison: Taken earlier in the day. Portable chest demonstrates left chest tube removal without pneumothorax. Stable left effusion/atelectasis, right base atelectasis, and support catheter/tubing. No new cardiopulmonary abnormalities.
[2018-02-06] MEDS: ENOXAPARIN SODIUM SQ SCH (09:04)
[2018-02-06] MEDS: MULTIVITAMIN LIQUID G-TUBE SCH (09:04)
[2018-02-06] MEDS: Miralax Powder 17GM PACKET PEG SCH (09:04)
[2018-02-06] MEDS: Robitussin 100 MG/5 ML PO SCH (09:06)
[2018-02-06] MEDS: Depakene 250 MG/5 ML Syrup G-TUBE SCH (09:06)
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
== END 2018-02-06 10:15 | disposition home or self-care (01) | DRG 186 ==
LOC: ED 22:31 → ICU 01-28 02:34 → MED SURG 02-02 16:43
PROVIDERS: ADMIT Family Medicine; ATTEND Family Medicine
PROC: 0W9B30Z Drainage of Left Pleural Cavity with Drainage Device, Percutaneous Approach (ICD-10-PCS; principal; 2018-01-30)
DX: J90 Pleural effusion, not elsewhere classified (principal); J18.9 Pneumonia, unspecified organism; J96.01 Acute respiratory failure with hypoxia; A41.9 Sepsis, unspecified organism; R65.20 Severe sepsis without septic shock; G83.9 Paralytic syndrome, unspecified; Z93.1 Gastrostomy status; M62.562 Muscle wasting and atrophy, not elsewhere classified, left lower leg; M62.561 Muscle wasting and atrophy, not elsewhere classified, right lower leg; K59.01 Slow transit constipation; G40.909 Epilepsy, unspecified, not intractable, without status epilepticus
CPT/HCPCS: 00540; 32557; 36000; 36415; 36569; 71045; 71260; 74018; 76937; 77001; 80048; 80053; 80164; 80202; 81002; 82805; 82945; 83605; 83615; 84157; 85025; 85027; 85610; 87040; 87070; 87077; 87086; 87205; 87631; 88305; 88309; 89050; 89051; 93005; 93041; 93970; 94640; 94760; 99285; C1769; J1642; J1650; J1956; J2270; J3370; P9612; A9270-GY

== ENCOUNTER 2018-10-14 15:22 | Observation (INO) | payer MEDICAID ==
[2018-10-14] MEDS ORDERED: PROVENTIL 2.5 MG/3 ML NEB IH ONE ×3 (16:35→21:29)
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
[2018-10-14 16:58] LABS: BASOPHIL % 0.2 % (0.0-0.4); Basophil (Absolute #) 0.02 (0-0.4); Eosinophil % 0.6 % (0.00-5.0); Eosinophil (Absolute #) 0.07 (0-0.5); Granulocyte Absolute (ANC) 9.54 (1.4-6.9); Granulocytes % 80.1 % (36.0-66.0); Hematocrit 48.6 % (42-50); Hemoglobin 17.1 gm/dl (12.5-18.0); Lymphocytes % 9.2 % (24.0-44.0); Mean Cell Volume 94.4 fl (78-100); Mean Corpuscular Hemoglobin 33.2 pg (26-32); Mean Corpuscular Hgb Concent. 35.2 g/dl (32-36); Mean Platelet Volume 12.4 fl (6-9.5); Monocyte (Absolute #) 1.18 (0.0-1.3); Monocytes % 9.9 % (0.0-12.0); Platelet Count 83 K/mm3 (150-450); Red Blood Count 5.15 M/mm3 (4.1-5.6); Red Cell Distribution Width 14.3 % (11.5-14.0); White Blood Count 11.9 K/mm3 (4.0-10.5)
--- NOTE | 2018-10-14 17:14 | XRAY ---
Indication: Cough. Comparison: February 05, 2018. Portable chest again demonstrates patient rotated and side bent to the right. Heart is not enlarged with stable underinflated right lung, right hemidiaphragm elevation, right base atelectasis, and support tubing/catheter overlying the spine. Previous large left effusion/atelectasis markedly improved with small residual. No new cardiopulmonary abnormalities.
[2018-10-14 17:17] LABS: ANION GAP 14.4 MEQ/L (5-15); BLOOD UREA NITROGEN 12 mg/dL (9-20); CHLORIDE 98 mmol/L (98-107); Calcium 9.8 mg/dL (8.4-10.2); Carbon Dioxide 28 mmol/L (22-30); Creatinine 1 0.33 mg/dL (0.66-1.25); Glucose 90 mg/dL (74-106); NT PRO BNP 413 pg/mL (0-450); Potassium 3.9 mmol/L (3.5-5.1); SODIUM 137 mmol/L (137-145)
[2018-10-14 17:35] LABS: INFLUENZA A NEGATIVE (NEGATIVE); INFLUENZA B NEGATIVE (NEGATIVE); RESPIRATORY SYNCTIAL VIRUS NEGATIVE (Negative)
[2018-10-14 17:44] LABS: Slide Review 1 YES
[2018-10-14] MEDS ORDERED: Rocephin 1000 MG INJ IM ONE (18:18)
[2018-10-14] MEDS ORDERED: Rocephin 1000 MG INJ ONE (18:26)
[2018-10-14] MEDS ORDERED: XYLOCAINE 1% HCL 20 ML MDV ONE (18:27)
[2018-10-14] MEDS ORDERED: Sodium Chloride 0.9% 1000 ML 1,000 ML ONE (19:34)
[2018-10-14] MEDS ORDERED: Sodium Chloride 0.9% 1000 ML 1,000 ML IV SCH ×2 (19:45→21:03)
[2018-10-14] MEDS ORDERED: Zithromax 500 MG/ 250 ML NaCl Premix 500 MG/250 ML IVPB IV ONE ×2 (20:08→20:12)
[2018-10-14] MEDS ORDERED: PROVENTIL 2.5 MG/3 ML NEB IH PRN (21:30)
[2018-10-14] MEDS ORDERED: Depakene 250 MG/5 ML Syrup G-TUBE SCH (22:00)
[2018-10-14] MEDS ORDERED: TYLENOL SUSPENSION 160 MG/5 ML PO PRN ×2 (22:39→23:26)
[2018-10-14] MEDS ORDERED: Sodium Chloride 0.9% 500 ML 500 ML IV ONE (23:06)
[2018-10-14] MEDS ORDERED: TYLENOL SUSPENSION 160 MG/5 ML ONE (23:11)
[2018-10-14] MEDS ORDERED: Xopenex 1.25 MG/0.5 ML UD NEBULE IH PRN (23:54)
[2018-10-15 00:55] VITALS: BP 125/76
[2018-10-15 02:18] LABS: A-aADO2 354; ABG HEMOGLOBIN 16.2; ABG POTASSIUM 3.6 (3.5-5.1); ABG SITE LEFT RADIAL; ALLEN TEST OK? YES; ARTERIAL BLD GAS O2 SATURATION 96.4 % (95-100); ARTERIAL BLOOD GAS BASE EXCESS -0.3 (-2.0-2.0); ARTERIAL BLOOD GAS FIO2 65 %; ARTERIAL BLOOD GAS PCO2 33 mmHg (35-45); ARTERIAL BLOOD GAS PO2 68 mmHg (75-100); ARTERIAL BLOOD GAS pH 7.45 (7.35-7.45); CARBOXYHEMOGLOBIN 3.8 % THgb (0.0-6.9); HCO3- 22.9 (22-28); HGB O2 SAT 91.9 g/dF (94-100); Methhemoglobin 0.9 % (1.4-1.5); paO2 pAO1 0.16
[2018-10-15] MEDS ORDERED: Sodium Chloride 3 ML UD NEBULES IH ONE (03:08)
[2018-10-15] MEDS ORDERED: Sodium Chloride 0.9% 1000 ML 1,000 ML ONE (03:12)
[2018-10-15 03:25] VITALS: PULSE 124
[2018-10-15] MEDS ORDERED: Merrem 1 GM 1 G in Sodium Chloride 100ML MINI-BAG PLUS 100 ML IV SCH (03:30)
[2018-10-15] MEDS ORDERED: Merrem 1 GM IV ONE (03:48)
[2018-10-15] MEDS ORDERED: Sodium Chloride 0.9% 100 ML IVPB 100 ML IV ONE (03:49)
[2018-10-15] MEDS ORDERED: Sodium Chloride 0.9% 500 ML 500 ML IV ONE (03:54)
[2018-10-15 04:28] VITALS: O2SAT 92
[2018-10-15 06:00] LABS: Hematocrit 46.7 % (42-50); Hemoglobin 16.5 gm/dl (12.5-18.0); Mean Cell Volume 95.1 fl (78-100); Mean Corpuscular Hemoglobin 33.6 pg (26-32); Mean Corpuscular Hgb Concent. 35.3 g/dl (32-36); Mean Platelet Volume 11.4 fl (6-9.5); Red Blood Count 4.91 M/mm3 (4.1-5.6); Red Cell Distribution Width 14.7 % (11.5-14.0); White Blood Count 11.1 K/mm3 (4.0-10.5)
[2018-10-15 06:58] LABS: ALBUMIN 4.1 g/dL (3.5-5.0); ALKALINE PHOSPHATASE 120 U/L (38-126); BLOOD UREA NITROGEN 10 mg/dL (9-20); CHLORIDE 104 mmol/L (98-107); Calcium 9.4 mg/dL (8.4-10.2); Carbon Dioxide 22 mmol/L (22-30); Creatinine 1 0.28 mg/dL (0.66-1.25); Glucose 109 mg/dL (74-106); Potassium 3.9 mmol/L (3.5-5.1); SGOT/AST 28 U/L (17-59); SGPT/ALT 31 U/L (0-50); SODIUM 138 mmol/L (137-145); Total Protein 7.6 g/dL (6.3-8.2)
[2018-10-15 06:59] LABS: ANION GAP 15.9 MEQ/L (5-15)
[2018-10-15 07:13] LABS: BAND 7 % (0.0-2.0); Basophil 1 % (0.0-1.0); Lymphocytes 10 % (24-44); Monocyte 8 % (0.0-12.0); Neutrophils 74 % (36.-66.); Platelet Estimate DECREASED (NORMAL); Total Cells Counted 100; Toxic Granulation 1+
[2018-10-15 07:14] LABS: ANISOCYTOSIS 1+
[2018-10-15 07:15] LABS: Platelet Count 56 K/mm3 (150-450)
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
--- NOTE | 2018-10-15 09:06 | XRAY ---
Indication: Short of breath. Code rapid. Comparison: Taken one day earlier. Portable chest demonstrates slight increasing right base opacity, probable infiltrate versus atelectasis with new small right effusion. Heart is not enlarged with stable underinflated right lung, right hemidiaphragm elevation, small left base effusion/atelectasis, and support tubing/catheters.
[2018-10-15] MEDS ORDERED: ROCEPHIN 1 Gm-D5w 50 ml Bag** 1 G/50 ML IVPB IV SCH (10:00)
[2018-10-15] MEDS ORDERED: Zithromax 500 MG/ 250 ML NaCl Premix 500 MG/250 ML IVPB IV SCH (10:00)
== END 2018-10-15 05:43 | disposition home or self-care (01) ==
LOC: ED 15:22 → MED SURG 20:59 → INTOOBSV 20:59
PROVIDERS: ADMIT Family Medicine; ATTEND Family Medicine
DX: J18.9 Pneumonia, unspecified organism (principal); R09.02 Hypoxemia; R00.0 Tachycardia, unspecified; G40.909 Epilepsy, unspecified, not intractable, without status epilepticus; G82.50 Quadriplegia, unspecified; D69.6 Thrombocytopenia, unspecified; Z93.1 Gastrostomy status
CPT/HCPCS: 36415; 36600; 71045; 80048; 80053; 82375; 82803; 83605; 83880; 85025; 85379; 87040; 87631; 93268; 94640; 94760; 96372; 99285; G0378; 01916; 36000; 99284; J0456; J0696; J7609; A9270-GY

== ENCOUNTER 2018-12-21 10:17 | Observation (INO) | payer MEDICAID ==
[2018-12-21] MEDS ORDERED: Zofran 4 MG/2 ML VIAL IV ONE (10:40)
[2018-12-21] MEDS ORDERED: Sodium Chloride 0.9% 1000 ML 1,000 ML IV STA ×3 (10:40→10:55)
[2018-12-21] MEDS ORDERED: FEVERALL 650 MG PR ONE (10:43)
[2018-12-21] MEDS ORDERED: FEVERALL 650 MG ONE (10:45)
[2018-12-21] MEDS ORDERED: Sodium Chloride 0.9% 1000 ML 1,000 ML ONE ×3 (10:45→12:54)
[2018-12-21] MEDS ORDERED: Zofran 4 MG/2 ML VIAL ONE (10:48)
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
--- NOTE | 2018-12-21 11:04 | XRAY ---
Indication: Vomiting. Possible aspiration. Comparison: November 06, 2018. Portable chest unchanged again with patient side bent/rotated, right hemidiaphragm elevation, bibasilar infiltrates/atelectasis, and catheter/tubing overlying the spine. Remaining heart and lungs unremarkable. No new cardiopulmonary abnormalities.
[2018-12-21 11:15] LABS: Lactic Acid 2.3 (0.4-2.0)
[2018-12-21 11:16] LABS: VBG BASE EXCESS 6.6 (-2.0-2.0); VBG CARBOXYHEMOGLOBIN 4.8 % T HGB (0.0-6.9); VBG HCO3- 30.5 meq/L (22-28); VBG HEMOGLOBIN 15.8; VBG O2 SATURATION 96.5 (95-100); VBG POTASSIUM 3.8 (3.5-5.1); VBG pH 7.49 (7.32-7.42)
[2018-12-21] MEDS ORDERED: ROCEPHIN 1 Gm-D5w 50 ml Bag** 1 G/50 ML IVPB IV STA (11:16)
[2018-12-21] MEDS ORDERED: ROCEPHIN 1 Gm-D5w 50 ml Bag** 1 G/50 ML IVPB IV ONE (11:28)
[2018-12-21 11:30] LABS: BASOPHIL % 0.1 % (0.0-0.4); Basophil (Absolute #) 0.01 (0-0.4); Eosinophil % 0.1 % (0.00-5.0); Eosinophil (Absolute #) 0.01 (0-0.5); Granulocyte Absolute (ANC) 7.09 (1.4-6.9); Granulocytes % 86.6 % (36.0-66.0); Hematocrit 42.6 % (42-50); Hemoglobin 14.8 gm/dl (12.5-18.0); Lymphocyte (Absolute #) 0.34 (1.0-4.6); Lymphocytes % 4.1 % (24.0-44.0); Mean Cell Volume 95.7 fl (78-100); Mean Corpuscular Hemoglobin 33.3 pg (26-32); Mean Corpuscular Hgb Concent. 34.7 g/dl (32-36); Mean Platelet Volume 13.4 fl (6-9.5); Monocyte (Absolute #) 0.75 (0.0-1.3); Monocytes % 9.1 % (0.0-12.0); Platelet Count 75 K/mm3 (150-450); Red Blood Count 4.45 M/mm3 (4.1-5.6); Red Cell Distribution Width 15.5 % (11.5-14.0); White Blood Count 8.2 K/mm3 (4.0-10.5)
[2018-12-21 12:03] LABS: ALBUMIN 4.1 g/dL (3.5-5.0); ALKALINE PHOSPHATASE 94 U/L (38-126); AMYLASE 72 U/L (30-110); ANION GAP 14.5 MEQ/L (5-15); BLOOD UREA NITROGEN 20 mg/dL (9-20); CHLORIDE 99 mmol/L (98-107); Calcium 9.5 mg/dL (8.4-10.2); Carbon Dioxide 29 mmol/L (22-30); Glucose 103 mg/dL (74-106); LIPASE 250 U/L (23-300); Potassium 3.7 mmol/L (3.5-5.1); SGOT/AST 43 U/L (17-59); SGPT/ALT 42 U/L (0-50); SODIUM 138 mmol/L (137-145); Slide Review 1 YES; Total Protein 7.2 g/dL (6.3-8.2)
[2018-12-21 12:06] LABS: Appearance CLOUDY (CLEAR); Bacteria MODERATE /HPF (NEGATIVE); Bilirubin NEGATIVE (NEGATIVE); Blood NEGATIVE Ery/ul (0-5); Glucose NEGATIVE (NEGATIVE); Ketones NEGATIVE (NEGATIVE); Leukocyte Esterase NEGATIVE (NEGATIVE); Mucus SLIGHT /HPF (NEGATIVE); Nitrite NEGATIVE (NEGATIVE); Protein,Urine Dip 30 (Negative); Urobilinogen NEGATIVE mg/dL (0-1)
[2018-12-21 12:12] LABS: Group A Strep NEGATIVE (NEGATIVE); INFLUENZA A NEGATIVE (NEGATIVE); INFLUENZA B NEGATIVE (NEGATIVE); RESPIRATORY SYNCTIAL VIRUS NEGATIVE (Negative)
[2018-12-21] MEDS ORDERED: FEVERALL 650 MG PR PRN (12:36)
[2018-12-21] MEDS ORDERED: Zofran 4 MG/2 ML VIAL IV PRN (12:36)
[2018-12-21] MEDS: Zithromax 500 MG/ 250 ML NaCl Premix 500 MG/250 ML IVPB IV SCH (14:46)
[2018-12-21] MEDS ORDERED: Phenergan 25 MG INJ IV PRN (16:37)
[2018-12-21] MEDS ORDERED: PATIENT OWN MEDICATION IJ PRN (17:08)
[2018-12-21] MEDS ORDERED: TYLENOL SUSPENSION 160 MG/5 ML G-TUBE PRN (17:09)
[2018-12-21] MEDS ORDERED: PROVENTIL 2.5 MG/3 ML NEB IH PRN (17:10)
[2018-12-21] MEDS: Sodium Chloride 0.9% 1000 ML 1,000 ML IV SCH (21:20)
[2018-12-21] MEDS ORDERED: Depakene 250 MG/5 ML Syrup G-TUBE SCH (22:00)
[2018-12-21] MEDS ORDERED: VALPROIC ACID 500 MG G-TUBE SCH (22:00)
[2018-12-22] MEDS: Sodium Chloride 0.9% 1000 ML 1,000 ML IV SCH ×2 (03:54→09:42)
[2018-12-22 05:50] LABS: BASOPHIL % 0.2 % (0.0-0.4); Basophil (Absolute #) 0.01 (0-0.4); Eosinophil % 0.2 % (0.00-5.0); Eosinophil (Absolute #) 0.01 (0-0.5); Granulocyte Absolute (ANC) 4.26 (1.4-6.9); Granulocytes % 68.6 % (36.0-66.0); Hematocrit 33.8 % (42-50); Hemoglobin 11.4 gm/dl (12.5-18.0); Lymphocytes % 22.6 % (24.0-44.0); Mean Cell Volume 99.7 fl (78-100); Mean Corpuscular Hemoglobin 33.6 pg (26-32); Mean Corpuscular Hgb Concent. 33.7 g/dl (32-36); Mean Platelet Volume 12.9 fl (6-9.5); Monocyte (Absolute #) 0.52 (0.0-1.3); Monocytes % 8.4 % (0.0-12.0); Platelet Count 72 K/mm3 (150-450); Red Blood Count 3.39 M/mm3 (4.1-5.6); Red Cell Distribution Width 16.1 % (11.5-14.0); White Blood Count 6.2 K/mm3 (4.0-10.5)
[2018-12-22 06:04] LABS: ALBUMIN 3.2 g/dL (3.5-5.0); ALKALINE PHOSPHATASE 73 U/L (38-126); ANION GAP 9.1 MEQ/L (5-15); BLOOD UREA NITROGEN 16 mg/dL (9-20); CHLORIDE 107 mmol/L (98-107); Calcium 8.4 mg/dL (8.4-10.2); Carbon Dioxide 28 mmol/L (22-30); Creatinine 1 0.34 mg/dL (0.66-1.25); Glucose 77 mg/dL (74-106); Potassium 3.8 mmol/L (3.5-5.1); SGOT/AST 42 U/L (17-59); SGPT/ALT 41 U/L (0-50); SODIUM 140 mmol/L (137-145); Total Protein 5.7 g/dL (6.3-8.2)
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
[2018-12-22 08:50] LABS: Slide Review 1 YES
[2018-12-22] MEDS: Zithromax 500 MG/ 250 ML NaCl Premix 500 MG/250 ML IVPB IV SCH (09:38)
[2018-12-22] MEDS ORDERED: BACLOFEN INTRATHEC SCH (10:00)
[2018-12-22] MEDS ORDERED: TAMIFLU SUSPENSION G-TUBE SCH (10:00)
[2018-12-22] MEDS ORDERED: VALPROIC ACID 250 MG G-TUBE SCH (10:00)
[2018-12-22] MEDS ORDERED: ROCEPHIN 1 Gm-D5w 50 ml Bag** 1 G/50 ML IVPB IV SCH (10:00)
[2018-12-22] MEDS ORDERED: PROTONIX 40 MG IV IV SCH (10:00)
[2018-12-22] MEDS ORDERED: Depakene 250 MG/5 ML Syrup G-TUBE SCH (10:00)
[2018-12-22 16:09] VITALS: BP 100/59; PULSE 82; O2SAT 99
== END 2018-12-22 18:00 | disposition home or self-care (01) ==
LOC: ED 10:17 → MED SURG 13:30
PROVIDERS: ADMIT Family Medicine; ATTEND Family Medicine
DX: R11.10 Vomiting, unspecified (principal); E86.0 Dehydration; R50.9 Fever, unspecified; G82.50 Quadriplegia, unspecified; Z93.1 Gastrostomy status; Z79.899 Other long term (current) drug therapy
CPT/HCPCS: 36000; 36415; 51702; 71045; 80053; 80164; 81001; 82150; 82805; 82947; 83605; 83690; 85025; 87040; 87086; 87631; 87651; 93005; 93041; 94760; 94762; 96360; 96374; 99285; J0456; J0696; J2405; J2550; A9270-GY; G0378

== ENCOUNTER 2020-08-27 09:47 | Inpatient (IN) | payer MEDICAID ==
[2020-08-27] MEDS ORDERED: Sodium Chloride 0.9% 1000 ML 1,000 ML IV STA (09:56)
[2020-08-27] MEDS ORDERED: Depacon 500 MG/5 ML*** 500 MG in Sodium Chloride 0.9% 100 ML IVPB 100 ML IV ONE (09:56)
[2020-08-27] MEDS ORDERED: Zofran 4 MG/2 ML VIAL IV ONE (09:56)
[2020-08-27 10:17] LABS: ARTERIAL BLD GAS O2 SATURATION 99 % (95-100); ARTERIAL BLOOD GAS BASE EXCESS 3.2 (-2.0-2.0); ARTERIAL BLOOD GAS PCO2 60 mmHg (35-45); ARTERIAL BLOOD GAS PO2 272 mmHg (75-100); ARTERIAL BLOOD GAS pH 7.32 (7.35-7.45); HCO3- 30.9 (22-28)
[2020-08-27 10:18] LABS: A-aADO2 366; ABG HEMOGLOBIN 14.1; ABG POTASSIUM 3.5 (3.5-5.1); ABG SITE LEFT RADIAL; ARTERIAL BLOOD GAS FIO2 100 %; CARBON DIOXIDE 33 mEq/L (23-27); CARBOXYHEMOGLOBIN 1.8 % THgb (0.0-6.9); Lactic Acid 1.5 (0.4-2.0); Methhemoglobin 1.1 % (1.4-1.5); O2 CONTENT 100 % vol; paO2 pAO1 0.43
[2020-08-27 10:26] LABS: Absolute Neutrophil Ct (ANC) 3.55 (1.4-6.9); BASOPHIL % 0.2 % (0.0-0.4); Basophil (Absolute #) 0.01 (0-0.4); Eosinophil % 0.6 % (0.00-5.0); Eosinophil (Absolute #) 0.03 (0-0.5); Hematocrit 39.6 % (42-50); Hemoglobin 13.9 gm/dl (12.5-18.0); Lymphocyte (Absolute #) 0.91 (1.0-4.6); Lymphocytes % 19.4 % (24.0-44.0); Mean Cell Volume 96.1 fl (78-100); Mean Corpuscular Hemoglobin 33.7 pg (26-32); Mean Corpuscular Hgb Concent. 35.1 g/dl (32-36); Mean Platelet Volume 12.1 fl (7.5-11.0); Monocyte (Absolute #) 0.18 (0.0-1.3); Monocytes % 3.8 % (0.0-12.0); Platelet Count 77 K/mm3 (150-450); Red Blood Count 4.12 M/mm3 (4.1-5.6); Red Cell Distribution Width 16.1 % (11.5-14.0); White Blood Count 4.7 K/mm3 (4.0-10.5)
[2020-08-27] MEDS ORDERED: Zofran 4 MG/2 ML VIAL ONE (10:27)
[2020-08-27] MEDS ORDERED: Depacon 500 MG/5 ML IV ONE ×2 (10:27→10:36)
[2020-08-27] MEDS ORDERED: Sodium Chloride 0.9% 1000 ML 1,000 ML ONE (10:27)
[2020-08-27] MEDS ORDERED: Sodium Chloride 0.9% 100 ML IVPB 100 ML IV ONE ×2 (10:28→10:36)
[2020-08-27 10:41] LABS: ALBUMIN 3.8 g/dL (3.5-5.0); ALKALINE PHOSPHATASE 85 U/L (38-126); ANION GAP 9.2 MEQ/L (5-15); BLOOD UREA NITROGEN 14 mg/dL (9-20); CHLORIDE 103 mmol/L (98-107); Calcium 8.5 mg/dL (8.4-10.2); Carbon Dioxide 28 mmol/L (22-30); Creatinine 1 0.26 mg/dL (0.66-1.25); EST GLOMERULAR FILTRATION RATE > 60.0 ML/MIN; Glucose 168 mg/dL (74-106); Potassium 3.7 mmol/L (3.5-5.1); SGOT/AST 37 U/L (17-59); SGPT/ALT 42 U/L (0-50); SODIUM 136 mmol/L (137-145); Total Protein 6.6 g/dL (6.3-8.2)
[2020-08-27 10:45] LABS: Appearance SLIGHTLY CLOUDY (CLEAR); Bilirubin NEGATIVE (NEGATIVE); Blood NEGATIVE Ery/ul (0-5); Glucose >=500 mg/dL (NEGATIVE); Ketones NEGATIVE (NEGATIVE); Leukocyte Esterase NEGATIVE (NEGATIVE); Mucus SLIGHT /HPF (NEGATIVE); Nitrite NEGATIVE (NEGATIVE); Protein,Urine Dip 30 (Negative); Specific Gravity 1.014 (1.005-1.025); Urobilinogen NEGATIVE mg/dL (0-1)
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
[2020-08-27] MEDS ORDERED: CLINDAMYCIN-D5W 600 MG/50 ML*** 600 MG/50 ML BAG IV STA (11:43)
[2020-08-27] MEDS ORDERED: LEVOFLOXACIN 750MG/150ML D5W 750 MG/150 ML BAG IV STA (11:43)
[2020-08-27] MEDS ORDERED: LEVOFLOXACIN 750MG/150ML D5W 750 MG/150 ML BAG IV ONE (11:58)
[2020-08-27] MEDS ORDERED: solu-MEDROL 125 MG IV ONE (12:32)
[2020-08-27] MEDS ORDERED: CLINDAMYCIN-D5W 900 MG/50 ML*** 0 MG/0 ML BAG IV ONE (13:07)
[2020-08-27] MEDS ORDERED: CLINDAMYCIN-D5W 600 MG/50 ML*** 600 MG/50 ML BAG IV ONE (13:08)
[2020-08-27] MEDS ORDERED: solu-MEDROL 125 MG ONE (13:10)
[2020-08-27 13:55] LABS: Slide Review 1 YES
[2020-08-27] MEDS ORDERED: Zofran 4 MG/2 ML VIAL IV PRN (14:08)
[2020-08-27] MEDS ORDERED: Ativan 2 MG/1 ML VIAL IV ONE (14:32)
[2020-08-27] MEDS: DUONEB 0.5-3 MG/3 ml Neb IH SCH ×3 (14:33→19:06)
[2020-08-27] MEDS: Ativan 2 MG/1 ML VIAL IV PRN ×4 (16:06→22:04)
[2020-08-27] MEDS: Sodium Chloride 0.9% 1000 ML 1,000 ML IV SCH (16:14)
[2020-08-27] MEDS: PROTONIX 40 MG IV IV SCH (16:21)
--- NOTE | 2020-08-27 16:24 | XRAY ---
Indication: Seizure. Comparison: December 21, 2018. Portable chest unchanged again with patient side bent/rotated, chronic right hemidiaphragm elevation, bibasilar infiltrates/atelectasis, and catheter/tube overlying the spine. Remaining heart and upper lungs unremarkable. Bony thorax intact.
--- NOTE | 2020-08-27 16:30 | XRAY ---
Indication: Seizure. Multiple contiguous axial images obtained through the head without contrast. Comparison: None Extensive right cerebral and mild left cerebellum encephalomalacia. There is diffuse ventriculomegaly with left ventricular shunt catheter tip terminating midline. No acute intracranial hemorrhage. Bony calvarium intact with extensive right parietal craniotomy/craniectomy. There is mild mucosal thickening of both ethmoid and right frontal sinuses. Mastoid air cells are clear. Impression: 1. 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 Diffuse ventriculomegaly with DOORPERSON OR LUGGAGE PORTER shunt catheter in situ. Comparison studies recommended if available. 2. Incidental paranasal sinus disease. 3. No acute intracranial hemorrhage. Comment: Preliminary interpretation was made by C. No critical discrepancy.
--- NOTE | 2020-08-27 16:36 | XRAY ---
Indication: Blood in urine. Seizure. Multiple contiguous axial images obtained through the abdomen and pelvis without contrast as ordered. Comparison: None Lung bases demonstrates incompletely visualized bibasilar infiltrates versus atelectasis. Heart is not enlarged. Right abdominal wall pain pump produces beam artifact limiting this level. Noncontrasted stomach and bowel loops appear nonobstructed. Moderate feces in the rectum/sigmoid favors impaction. PEG tube with balloon tip in the stomach lumen. Anterior CARBON PASTE MIXER OPERATOR shunt catheter coiled in the pelvis. Urinary bladder is near empty with Hand catheter in situ. No free fluid/air. Remaining liver, gallbladder, pancreas, spleen, adrenal glands, kidneys, ureters, and aorta appear unremarkable for noncontrast exam. Osseous structures intact. Impression: 1. Rectal impaction. 2. Incompletely visualized bibasilar infiltrates/atelectasis. 3. PEG tube, CARBON PASTE MIXER OPERATOR shunt catheter, and Hand catheter in situ. 4. Remaining CT abdomen/pelvis without contrast exam is negative. Comment: Preliminary interpretation was made by [facility]. No critical discrepancy.
[2020-08-27] MEDS: solu-MEDROL 125 MG IV SCH (18:21)
[2020-08-27] MEDS: Depakene 250 MG/5 ML Syrup G-TUBE SCH (22:00)
[2020-08-27] MEDS: CLINDAMYCIN-D5W 600 MG/50 ML*** 600 MG/50 ML BAG IV SCH (22:00)
[2020-08-28] MEDS: solu-MEDROL 125 MG IV SCH ×4 (00:17→20:05)
[2020-08-28] MEDS: Ativan 2 MG/1 ML VIAL IV PRN ×4 (00:19→05:59)
[2020-08-28] MEDS: Sodium Chloride 0.9% 1000 ML 1,000 ML IV SCH ×3 (01:11→20:03)
[2020-08-28 05:12] LABS: Absolute Neutrophil Ct (ANC) 7.99 (1.4-6.9); BASOPHIL % 0.1 % (0.0-0.4); Basophil (Absolute #) 0.01 (0-0.4); Eosinophil (Absolute #) 0 (0-0.5); Hematocrit 39.7 % (42-50); Lymphocyte (Absolute #) 0.69 (1.0-4.6); Lymphocytes % 7.9 % (24.0-44.0); Mean Cell Volume 95.2 fl (78-100); Mean Corpuscular Hemoglobin 33.6 pg (26-32); Mean Corpuscular Hgb Concent. 35.3 g/dl (32-36); Mean Platelet Volume 12.7 fl (7.5-11.0); Monocyte (Absolute #) 0.04 (0.0-1.3); Monocytes % 0.5 % (0.0-12.0); Neutrophil % 91.5 % (36.0-66.0); Platelet Count 82 K/mm3 (150-450); Red Blood Count 4.17 M/mm3 (4.1-5.6); White Blood Count 8.7 K/mm3 (4.0-10.5)
[2020-08-28] MEDS: CLINDAMYCIN-D5W 600 MG/50 ML*** 600 MG/50 ML BAG IV SCH ×3 (05:51→21:44)
[2020-08-28] MEDS ORDERED: Ativan 2 MG/1 ML VIAL ONE (05:57)
[2020-08-28 06:02] LABS: ALBUMIN 3.9 g/dL (3.5-5.0); ALKALINE PHOSPHATASE 89 U/L (38-126); ANION GAP 10.2 MEQ/L (5-15); BLOOD UREA NITROGEN 10 mg/dL (9-20); CHLORIDE 102 mmol/L (98-107); Calcium 8.9 mg/dL (8.4-10.2); Carbon Dioxide 26 mmol/L (22-30); Creatinine 1 0.23 mg/dL (0.66-1.25); EST GLOMERULAR FILTRATION RATE > 60.0 ML/MIN; Glucose 97 mg/dL (74-106); Potassium 4.2 mmol/L (3.5-5.1); SGOT/AST 35 U/L (17-59); SGPT/ALT 38 U/L (0-50); SODIUM 134 mmol/L (137-145)
[2020-08-28] MEDS ORDERED: PROVENTIL 2.5 MG/3 ML NEB IH PRN (06:52)
[2020-08-28] MEDS: DUONEB 0.5-3 MG/3 ml Neb IH SCH ×4 (07:01→20:31)
[2020-08-28 07:37] LABS: Slide Review 1 YES
[2020-08-28] MEDS ORDERED: TIZANIDINE HCL 4 MG G-TUBE PRN (07:48)
[2020-08-28] MEDS ORDERED: Motrin 100 MG/5 ML PO PRN (07:48)
[2020-08-28] MEDS ORDERED: TYLENOL SUSPENSION 160 MG/5 ML PO PRN (07:48)
[2020-08-28] MEDS ORDERED: Zanaflex 4 MG G-TUBE PRN (08:01)
[2020-08-28] MEDS ORDERED: Keppra 500 MG/5 ML*** 1,000 MG in D5w 100ML Mini Bag 100 ML 100 ML IV ONE ×3 (08:54→17:48)
--- NOTE | 2020-08-28 09:18 | XRAY ---
Indication: Pneumonia. Comparison: One day earlier. Portable chest again demonstrates patient side bent/rotated. Mild improving right base infiltrate/atelectasis. Stable chronic right hemidiaphragm elevation, left base infiltrate/atelectasis, epidural tube, and EYEGLASS FITTER shunt tubing. No new cardiopulmonary abnormalities.
[2020-08-28] MEDS ORDERED: VALPROIC ACID 250 MG G-TUBE SCH (10:00)
[2020-08-28] MEDS ORDERED: [UNRECOGNIZED DRUG - OTHER] G-TUBE SCH (10:00)
[2020-08-28] MEDS ORDERED: FERROUS FUMARATE G-TUBE SCH (10:00)
[2020-08-28] MEDS ORDERED: FLUZONE QUAD 2020-2021 SYRINGE IM ONE (10:00)
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
[2020-08-28] MEDS: BACLOFEN IJ SCH (11:02)
[2020-08-28] MEDS: Depakene 250 MG/5 ML Syrup G-TUBE SCH ×2 (11:03→21:45)
[2020-08-28] MEDS: MULTIVITAMIN LIQUID G-TUBE SCH (11:06)
[2020-08-28] MEDS: PROTONIX 40 MG IV IV SCH (11:06)
[2020-08-28] MEDS ORDERED: Keppra 500 MG/5 ML ONE (18:00)
[2020-08-28] MEDS ORDERED: D5w 100ML Mini Bag 100 ML 100 ML IV ONE (18:00)
[2020-08-28] MEDS ORDERED: Keppra 500 MG/5 ML*** 2,000 MG in D5w 100ML Mini Bag 100 ML 100 ML IV ONE (18:21)
[2020-08-28] MEDS: Robitussin 100 MG/5 ML PO SCH (21:45)
[2020-08-29] MEDS: solu-MEDROL 125 MG IV SCH ×5 (01:09→23:35)
[2020-08-29] MEDS: Robitussin 100 MG/5 ML PO SCH ×3 (03:05→19:32)
[2020-08-29] MEDS: Sodium Chloride 0.9% 1000 ML 1,000 ML IV SCH ×2 (04:24→12:50)
[2020-08-29] MEDS ORDERED: Keppra 500 MG/5 ML*** 1,000 MG in D5w 100ML Mini Bag 100 ML 100 ML IV SCH ×2 (06:00→22:00)
[2020-08-29] MEDS: CLINDAMYCIN-D5W 600 MG/50 ML*** 600 MG/50 ML BAG IV SCH ×3 (06:19→21:37)
[2020-08-29] MEDS: DUONEB 0.5-3 MG/3 ml Neb IH SCH ×4 (07:30→20:04)
[2020-08-29] MEDS ORDERED: LOTRIMIN CREAM 30 GM TP ONE (09:00)
--- NOTE | 2020-08-29 09:09 | PCM.NOTE ---
Date and Time: 08/29/20905 Subjective Assessment: No further tremors, concerns about air mattress and rash in right arm contracture, doing generally well. - Review of Systems Constitutional: No Fever, No Chills Eyes: No Symptoms Ears, Nose, & Throat: No Symptoms Respiratory: No Cough, No Short Of Breath Cardiac: No Chest Pain, No Edema, No Syncope Abdominal/Gastrointestinal: No Abdominal Pain, No Nausea, No Vomiting, No Diarrhea Genitourinary Symptoms: No Dysuria Musculoskeletal: No Back Pain, No Neck Pain Skin: No Rash Neurological: No Dizziness, No Focal Weakness, No Sensory Changes Psychological: No Symptoms Endocrine: No Symptoms Hematologic/Lymphatic: No Symptoms Immunological/Allergic: No Symptoms Objective Exam General Appearance: no apparent distress Skin Exam: warm, dry, rash (right arm antecubital region) Ears, Nose, Throat Exam: normal ENT inspection Neck Exam: normal inspection Lymphatic Exam: No adenopathy Respiratory Exam: rhonchi (upper airway turbulence, noted a lot of secretions sucked out this am) Cardiovascular Exam: regular rate/rhythm, normal heart sounds Gastrointestinal/Abdomen Exam: soft, No tenderness, No distention Extremity Exam: normal inspection (contractures in all 4 extremities) OBJECTIVE DATA Vital Signs: Vital Signs - 24 hr Temp Pulse Resp BP BP Pulse Ox 08/29/20 08:05 98 08/29/20 07:47 60 20 98 08/29/20 07:28 97.5 F 73 16 99/58 96 08/29/20 04:00 96.8 F 76 16 113/70 97 08/29/20 00:00 96.5 F 65 13 87/51 98 08/28/20 20:31 46 L 14 95 08/28/20 20:00 97.6 F 68 13 85/50 98 08/28/20 16:00 95.3 F 92 H 20 114/67 94 L 08/28/20 15:18 92 H 20 94 L 08/28/20 12:00 95.3 F 105 H 19 114/67 97 08/28/20 11:14 98 H 24 97 Oxygen-Last 24 hours Oxygen Flowrate (L/min)-RT 15 Oxygen Flowrate (L/min)-RT 15 Pain Assessment - Last Documented Pain Intensity 0 Intake and Output: Intake & Output 08/26/20 08/27/20 08/28/20 08/29/20 11:59 11:59 11:59 11:59 Intake Total 802 3686 Output Total 1400 1250 Balance -598 2436 Weight 67.132 kg 72.7 kg 70.2 kg Lab Results: Lab Results-Last 24 Hours 08/28/20 08/28/20 08/28/20 Range/Units 11:50 16:54 20:58 POC Glucometer 122 H 123 H 100 (74 to 106) mg/dL 08/29/20 Range/Units 06:45 POC Glucometer 110 H (74 to 106) mg/dL Radiology Exams: Radiology Procedures Category Date Time Status ABDOMEN AND PELVIS W/0 CONTRAS [CT] Stat Exams 08/27/20 11:10 Completed CHEST 1 VIEW (PORTABLE) Routine Exams 08/28/20 08:38 Completed CHEST 1 VIEW (PORTABLE) Routine Exams 08/30/20 00:01 Ordered CHEST 1 VIEW (PORTABLE) Stat Exams 08/27/20 09:57 Completed HEAD WITHOUT CONTRAST [CT] Stat Exams 08/27/20 09:57 Completed Multi-Disciplinary Progress Notes: Multi-Disciplinary Progress Notes 08/29/20 08:21 Case Management Note by Joann Sanderson PATIENT ACUTELY WILL WILL CONTINUE TO FOLLOW FOR NEEDS Initialized on 08/29/20 08:21 - END OF NOTE 08/29/20 06:08 Respiratory Note by Chance Lux I DECREASED PT FROM 15LPM TO 12LPM AFTER SUCTIONING PT ORALLY W/ YANK AND CATH. I HAVE SUCTIONED PT 4X THRU THE NIGHT W/ SMALL TO MOD AMT OF CLEAR SECRETIONS W/ OCCASIONAL BLOOD TING. PT SATS HAVE DROPPED TO LOW 80'S ONCE AROUND 0300 BUT HAVE MAINTAINED MID TO HIGH 90'S SINCE. PT SATS WERE 98% ON 15LPM. AFTER APPROX 5-10 MIN ON 12LPM PT SATS WERE 97%. INFORMED NURSING. Initialized on 08/29/20 06:08 - END OF NOTE 08/28/20 22:36 Respiratory Note by Chance Lux AT APPROX 2210 I WAS STANDING OUTSIDE PT RM AND HIS SPO2 WAS ALARMING STATING PT WAS LOW 70'S. I ENTERED PT RM AND CHECKED PT PROBE, O2 CONNECTION, AND COMPARED VALUES TO MY PULSE OX AND IT WAS THE SAME. I CALLED FOR NURSE I KNEW SHE HAD RECENTLY LEFT PT RM NOT LONG AFTER I HAD. I INCREASED PT FIO2 FROM 3 TO 8 LPM OXYMASK AND SATS DID NOT CHANGE. NURSE AND I REPOSITIONED PT IN BED AND I OPENED FLOW METER UP TO 15 LPM. PT HR WAS STEADY AROUND 70, RR WAS STEADY AROUND 15, AND SPO2 CLIMBED TO LOW 90'S. PT HAD GOOD COLORING. BS WERE DIMINISHED. I SUCTIONED PT W/ YANK AND OBTAINED A SMALL AMT OF CLEAR SECRETIONS. NURSE AND I DISCUSSED THAT WE THINK THAT THIS MAY BE DUE TO COUGH MEDS SHE HAD JUST GIVEN PT APPROX 15-20 PRIOR TO SATS DROPPING. AT 2240 SATS HAD SLOWLY CLIMBED TO 100%, AGAIN CHECKING W/ MULTIPLE PROBES. I AM LEAVING PT ON 15 LPM OXYMASK AT THIS TIME. PT SATS ARE DROPPING OCCASIONALLY TO HIGH 80'S BUT THEN RECOVERING QUICKLY. ALERTED NURSING. Initialized on 08/28/20 22:36 - END OF NOTE 08/28/20 21:54 Respiratory Note by Chance Lux CHECKED W/ NURSING TO SEE IF WE HAD ANY UPDATES FROM DR. FRANK OR DR. DEAN RE: USING THE VEST THIS EVENING AND WE HAVEN'T HEARD ANYTHING. PT SOUNDS COARSE AT THIS TIME. SPOKE TO PT FATHER RE: USING THE VEST STATING THAT WE HADN'T HEARD BACK FROM EITHER DOC AND HE STATED HE THOUGHT FROM HIS PERSPECTIVE FROM TAKING CARE OF PT THAT IT'D BE GOOD FOR HIM TO HAVE VEST THERAPY AT THIS TIME. I ASSISTED PT FATHER IN HOOKING UP VEST AND GAVE NEB TX AT THE SAME TIME. I STOOD AT BEDSIDE FOR THE ENTIRE 30 MINUTES AND DID NOT WITNESS ANY ISSUES. POST NEB AND VEST TX I SUCTIONED PT W/ YANK WELL CATH. I DID 4 PASSES W/ CATH ORALLY AND OBTAINED A MODERATE AMT OF MOSTLY CLEAR W/ SOME RED TINGED SECRETIONS. PLACED PT BACK ON 3LPM OXYMASK POST TX. FATHER IS AWARE THAT I HAVE NO MORE TX SCHEDULED THIS EVENING BUT I WILL BE MONITORING O2 AND TO HAVE NURSING CALL RT IF HE FELT PT NEEDED. Initialized on 08/28/20 21:54 - END OF NOTE 08/28/20 16:47 Respiratory Note by Nicole Cordoba DR. WAS CALLED REGARDING THE USE OF PT'S HOME VEST. DR. FRANK REQUESTED WE WAIT UNTIL BEDTIME TO USE THE VEST AND UNTIL HE SPEAKS W/ DR. DEAN (NEUROLOGIST). Initialized on 08/28/20 16:47 - END OF NOTE Assessment/Plan (1) Bilateral pneumonia Current Visit: Yes Status: Acute Qualifiers: Pneumonia type: due to unspecified organism Lung location: unspecified part of lung Qualified Code(s): J18.9 - Pneumonia, unspecified organism Assessment & Plan: on appropriate abx Code(s): J18.9 - PNEUMONIA, UNSPECIFIED ORGANISM (2) Seizure Current Visit: Yes Status: Acute Assessment & Plan: controlled with [facility] Code(s): R56.9 - UNSPECIFIED CONVULSIONS
[2020-08-29] MEDS: PROTONIX 40 MG IV IV SCH (10:25)
[2020-08-29] MEDS: MULTIVITAMIN LIQUID G-TUBE SCH (10:27)
[2020-08-29] MEDS: Depakene 250 MG/5 ML Syrup G-TUBE SCH ×2 (10:29→21:36)
[2020-08-29] MEDS: BACLOFEN IJ SCH (10:32)
[2020-08-29] MEDS ORDERED: Keppra 500 MG/5 ML*** 1,000 MG in D5w 100ML Mini Bag 100 ML 100 ML IV ONE (11:21)
[2020-08-29] MEDS ORDERED: Dulcolax 10 MG SUPP PR ONE (16:55)
[2020-08-29] MEDS ORDERED: PATIENT OWN MEDICATION G-TUBE PRN (20:26)
[2020-08-30] MEDS: Robitussin 100 MG/5 ML PO SCH ×3 (02:47→18:03)
[2020-08-30] MEDS: CLINDAMYCIN-D5W 600 MG/50 ML*** 600 MG/50 ML BAG IV SCH ×3 (05:01→21:32)
[2020-08-30] MEDS: solu-MEDROL 125 MG IV SCH ×3 (05:01→18:03)
[2020-08-30 05:25] LABS: ANION GAP 3.2 MEQ/L (5-15); BLOOD UREA NITROGEN 16 mg/dL (9-20); CHLORIDE 109 mmol/L (98-107); Calcium 8.7 mg/dL (8.4-10.2); Carbon Dioxide 30 mmol/L (22-30); Creatinine 1 0.27 mg/dL (0.66-1.25); EST GLOMERULAR FILTRATION RATE > 60.0 ML/MIN; Glucose 102 mg/dL (74-106); Potassium 3.8 mmol/L (3.5-5.1); SODIUM 138 mmol/L (137-145)
[2020-08-30 05:29] LABS: Absolute Neutrophil Ct (ANC) 6.64 (1.4-6.9); BASOPHIL % 0.1 % (0.0-0.4); Basophil (Absolute #) 0.01 (0-0.4); Eosinophil (Absolute #) 0 (0-0.5); Hematocrit 35.2 % (42-50); Hemoglobin 12.1 gm/dl (12.5-18.0); Lymphocytes % 8.1 % (24.0-44.0); Mean Cell Volume 99.7 fl (78-100); Mean Corpuscular Hemoglobin 34.3 pg (26-32); Mean Corpuscular Hgb Concent. 34.4 g/dl (32-36); Mean Platelet Volume 12.5 fl (7.5-11.0); Monocyte (Absolute #) 0.12 (0.0-1.3); Monocytes % 1.6 % (0.0-12.0); Neutrophil % 90.2 % (36.0-66.0); Platelet Count 72 K/mm3 (150-450); Red Blood Count 3.53 M/mm3 (4.1-5.6); Red Cell Distribution Width 17.1 % (11.5-14.0); White Blood Count 7.4 K/mm3 (4.0-10.5)
[2020-08-30] MEDS: DUONEB 0.5-3 MG/3 ml Neb IH SCH ×4 (06:50→20:31)
[2020-08-30] MEDS: Sodium Chloride 0.9% 1000 ML 1,000 ML IV SCH (08:02)
--- NOTE | 2020-08-30 08:42 | XRAY ---
Indication: Follow-up pneumonia. Comparison: August 28, 2020. Portable chest again demonstrates bibasilar infiltrates/atelectasis worsened on the left with also new small bibasilar effusions. Heart is not enlarged. Stable chronic right hemidiaphragm elevation, epidural tube, and BOREMATIC OPERATOR shunt tubing.
[2020-08-30 09:10] LABS: Slide Review 1 YES
[2020-08-30] MEDS ORDERED: Depakene 250 MG/5 ML Syrup G-TUBE SCH (10:00)
[2020-08-30] MEDS: ROCEPHIN 1 Gm-D5w 50 ml Bag** 1 G/50 ML IVPB IV SCH (10:12)
[2020-08-30] MEDS: PROTONIX 40 MG IV IV SCH (10:12)
[2020-08-30] MEDS: KEPPRA 500 MG G-TUBE SCH ×2 (10:36→21:36)
[2020-08-30] MEDS: Depakene 250 MG/5 ML Syrup G-TUBE SCH ×2 (10:37→21:35)
[2020-08-30] MEDS: MULTIVITAMIN LIQUID G-TUBE SCH (10:40)
[2020-08-30] MEDS: BACLOFEN IJ SCH (10:41)
[2020-08-30] MEDS: Zithromax 500 MG/ 250 ML NaCl Premix 500 MG/250 ML IVPB IV SCH (11:10)
--- NOTE | 2020-08-30 12:11 | PCM.NOTE ---
Date and Time: 08/30/20 1208 Mother notes he is back at baseline, pnuemonia in left lower lobe is worse on cxr but exam is better. Subjective Assessment: Mom notes back at baseline this am, no further tremors, cxr noted to be slightly worse on left improved on the right - Review of Systems Constitutional: No Fever, No Chills Eyes: No Symptoms Ears, Nose, & Throat: No Symptoms Respiratory: No Cough, No Short Of Breath Cardiac: No Chest Pain, No Edema, No Syncope Abdominal/Gastrointestinal: No Abdominal Pain, No Nausea, No Vomiting, No Diarrhea Genitourinary Symptoms: No Dysuria Musculoskeletal: No Back Pain, No Neck Pain Skin: No Rash Neurological: No Dizziness, No Focal Weakness, No Sensory Changes Psychological: No Symptoms Endocrine: No Symptoms Hematologic/Lymphatic: No Symptoms Immunological/Allergic: No Symptoms Objective Exam General Appearance: no apparent distress Skin Exam: normal color, warm, dry, No rash Eye Exam: EOMI Ears, Nose, Throat Exam: normal ENT inspection Neck Exam: normal inspection, non-tender Respiratory Exam: normal breath sounds, lungs clear, No chest tenderness Cardiovascular Exam: regular rate/rhythm, normal heart sounds Gastrointestinal/Abdomen Exam: soft, normal bowel sounds, No tenderness, No distention OBJECTIVE DATA Vital Signs: Vital Signs - 24 hr Temp Pulse Resp BP Pulse Ox 08/30/20 10:48 51 L 20 93 L 08/30/20 08:47 97.6 F 63 14 95/51 97 08/30/20 06:53 45 L 14 97 08/30/20 05:08 96.4 F 68 16 104/58 95 08/30/20 03:37 47 L 16 99 08/29/20 23:21 96.1 F 55 L 16 101/55 97 08/29/20 20:04 47 L 12 100 08/29/20 20:00 46 L 20 08/29/20 16:00 97.6 F 80 20 107/60 08/29/20 15:32 88 22 97 08/29/20 12:17 68 22 97 Oxygen-Last 24 hours Oxygen Flowrate (L/min)-RT 2 Oxygen Flowrate (L/min)-RT 8 Pain Assessment - Last Documented Pain Intensity 0 Intake and Output: Intake & Output 08/28/20 08/29/20 08/30/20 08/31/20 11:59 11:59 11:59 11:59 Intake Total 665 5278 6175 Output Total 6265 1250 1500 Balance -598 9494 294 Weight 72.7 kg 70.2 kg 75.5 kg Lab Results: Lab Results-Last 24 Hours 08/29/20 08/29/20 08/29/20 Range/Units 12:17 16:02 21:53 WBC (4.0-10.5) K/mm3 RBC (4.1-5.6) M/mm3 Hgb (12.5-18.0) gm/dl Hct (42-50) % MCV (78-100) fl MCH (26-32) pg MCHC (32-36) g/dl RDW (11.5-14.0) % Plt Count (150-450) K/mm3 MPV (7.5-11.0) fl Gran % (36.0-66.0) % Eos # (Auto) (0-0.5) Absolute Lymphs (auto) (1.0-4.6) Absolute Monos (auto) (0.0-1.3) Lymphocytes % (24.0-44.0) % Monocytes % (0.0-12.0) % Eosinophils % (0.00-5.0) % Basophils % (0.0-0.4) % Absolute Granulocytes (1.4-6.9) Basophils # (0-0.4) Sodium (137-145) mmol/L Potassium (3.5-5.1) mmol/L Chloride (98-107) mmol/L Carbon Dioxide (22-30) mmol/L Anion Gap (5-15) MEQ/L BUN (9-20) mg/dL Creatinine (0.66-1.25) mg/dL Estimated GFR ML/MIN Glucose (74-106) mg/dL POC Glucometer 147 H 131 H 136 H (74 to 106) mg/dL Calcium (8.4-10.2) mg/dL Valproic Acid (50-100) ug/mL Slides for Path Review 08/30/20 08/30/20 08/30/20 Range/Units 05:00 05:09 05:09 WBC 7.4 (4.0-10.5) K/mm3 RBC 3.53 L (4.1-5.6) M/mm3 Hgb 12.1 L (12.5-18.0) gm/dl Hct 35.2 L (42-50) % MCV 99.7 (78-100) fl MCH 34.3 H (26-32) pg MCHC 34.4 (32-36) g/dl RDW 17.1 H (11.5-14.0) % Plt Count 72 L (150-450) K/mm3 MPV 12.5 H (7.5-11.0) fl Gran % 90.2 H (36.0-66.0) % Eos # (Auto) 0 (0-0.5) Absolute Lymphs (auto) 0.60 L (1.0-4.6) Absolute Monos (auto) 0.12 (0.0-1.3) Lymphocytes % 8.1 L (24.0-44.0) % Monocytes % 1.6 (0.0-12.0) % Eosinophils % 0.0 (0.00-5.0) % Basophils % 0.1 (0.0-0.4) % Absolute Granulocytes 6.64 (1.4-6.9) Basophils # 0.01 (0-0.4) Sodium 138 (137-145) mmol/L Potassium 3.8 (3.5-5.1) mmol/L Chloride 109 H (98-107) mmol/L Carbon Dioxide 30 (22-30) mmol/L Anion Gap 3.2 L (5-15) MEQ/L BUN 16 (9-20) mg/dL Creatinine 0.27 L (0.66-1.25) mg/dL Estimated GFR > 60.0 ML/MIN Glucose 102 (74-106) mg/dL POC Glucometer (74 to 106) mg/dL Calcium 8.7 (8.4-10.2) mg/dL Valproic Acid 45.9 L (50-100) ug/mL Slides for Path Review YES 08/30/20 08/30/20 Range/Units 07:09 10:26 WBC (4.0-10.5) K/mm3 RBC (4.1-5.6) M/mm3 Hgb (12.5-18.0) gm/dl Hct (42-50) % MCV (78-100) fl MCH (26-32) pg MCHC (32-36) g/dl RDW (11.5-14.0) % Plt Count (150-450) K/mm3 MPV (7.5-11.0) fl Gran % (36.0-66.0) % Eos # (Auto) (0-0.5) Absolute Lymphs (auto) (1.0-4.6) Absolute Monos (auto) (0.0-1.3) Lymphocytes % (24.0-44.0) % Monocytes % (0.0-12.0) % Eosinophils % (0.00-5.0) % Basophils % (0.0-0.4) % Absolute Granulocytes (1.4-6.9) Basophils # (0-0.4) Sodium (137-145) mmol/L Potassium (3.5-5.1) mmol/L Chloride (98-107) mmol/L Carbon Dioxide (22-30) mmol/L Anion Gap (5-15) MEQ/L BUN (9-20) mg/dL Creatinine (0.66-1.25) mg/dL Estimated GFR ML/MIN Glucose (74-106) mg/dL POC Glucometer 87 96 (74 to 106) mg/dL Calcium (8.4-10.2) mg/dL Valproic Acid (50-100) ug/mL Slides for Path Review Radiology Exams: Radiology Procedures Category Date Time Status CHEST 1 VIEW (PORTABLE) DAILY Exams 08/31/20 06:00 Ordered CHEST 1 VIEW (PORTABLE) DAILY Exams 09/01/20 06:00 Ordered CHEST 1 VIEW (PORTABLE) DAILY Exams 09/02/20 06:00 Ordered CHEST 1 VIEW (PORTABLE) Routine Exams 08/30/20 06:18 Completed Multi-Disciplinary Progress Notes: Multi-Disciplinary Progress Notes 08/30/20 10:45 Case Management Note by Joann Sanderson NO CHANGE IN DC PLANS WILL CONTINUE TO FOLLOW Initialized on 08/30/20 10:45 - END OF NOTE Assessment/Plan (1) Bilateral pneumonia Current Visit: Yes Status: Acute Qualifiers: Pneumonia type: due to unspecified organism Lung location: unspecified part of lung Qualified Code(s): J18.9 - Pneumonia, unspecified organism Assessment & Plan: right improved, left is worse will add azithromycin and rocephin Code(s): J18.9 - PNEUMONIA, UNSPECIFIED ORGANISM (2) Seizure Current Visit: Yes Status: Acute Assessment & Plan: change keppra 1gm iv q12 to 500mg per g tube q12 Code(s): R56.9 - UNSPECIFIED CONVULSIONS
[2020-08-31] MEDS: solu-MEDROL 125 MG IV SCH ×4 (01:17→18:26)
[2020-08-31] MEDS: Robitussin 100 MG/5 ML PO SCH ×3 (03:21→19:56)
[2020-08-31 05:49] LABS: Hematocrit 34.6 % (42-50); Hemoglobin 11.1 gm/dl (12.5-18.0); Mean Cell Volume 102.1 fl (78-100); Mean Corpuscular Hemoglobin 32.7 pg (26-32); Mean Corpuscular Hgb Concent. 32.1 g/dl (32-36); Mean Platelet Volume 12.8 fl (7.5-11.0); Platelet Count 63 K/mm3 (150-450); Red Blood Count 3.39 M/mm3 (4.1-5.6); Red Cell Distribution Width 16.9 % (11.5-14.0); White Blood Count 4.9 K/mm3 (4.0-10.5)
[2020-08-31] MEDS: CLINDAMYCIN-D5W 600 MG/50 ML*** 600 MG/50 ML BAG IV SCH ×3 (05:56→22:24)
[2020-08-31] MEDS: Sodium Chloride 0.9% 1000 ML 1,000 ML IV SCH (06:06)
[2020-08-31 06:16] LABS: ANION GAP 4.9 MEQ/L (5-15); BLOOD UREA NITROGEN 18 mg/dL (9-20); CHLORIDE 107 mmol/L (98-107); Calcium 8.7 mg/dL (8.4-10.2); Carbon Dioxide 31 mmol/L (22-30); EST GLOMERULAR FILTRATION RATE > 60.0 ML/MIN; Glucose 91 mg/dL (74-106); Potassium 3.9 mmol/L (3.5-5.1); SODIUM 139 mmol/L (137-145)
[2020-08-31] MEDS: DUONEB 0.5-3 MG/3 ml Neb IH SCH ×4 (06:49→18:54)
--- NOTE | 2020-08-31 08:31 | PCM.NOTE ---
Date and Time: 08/31/20828 Subjective Assessment: Pt. doing well per parents, cxr appears improved by my viewing. - Review of Systems Constitutional: No Fever, No Chills Eyes: No Symptoms Ears, Nose, & Throat: No Symptoms Respiratory: No Cough, No Short Of Breath Cardiac: No Chest Pain, No Edema, No Syncope Abdominal/Gastrointestinal: No Abdominal Pain, No Nausea, No Vomiting, No Diarrhea Genitourinary Symptoms: No Dysuria Musculoskeletal: No Back Pain, No Neck Pain Skin: No Rash Neurological: No Dizziness, No Focal Weakness, No Sensory Changes Psychological: No Symptoms Endocrine: No Symptoms Hematologic/Lymphatic: No Symptoms Immunological/Allergic: No Symptoms Objective Exam General Appearance: no apparent distress Neurologic Exam: alert Skin Exam: normal color, warm, dry Neck Exam: normal inspection Respiratory Exam: normal breath sounds, rhonchi (upper airway turbulence), No chest tenderness Cardiovascular Exam: regular rate/rhythm, normal heart sounds Gastrointestinal/Abdomen Exam: soft, No tenderness, No distention OBJECTIVE DATA Vital Signs: Vital Signs - 24 hr Temp Pulse Resp BP Pulse Ox 08/31/20 08:00 97.6 F 63 18 100/62 94 L 08/31/20 06:56 49 L 16 91 L 08/31/20 03:53 96.6 F 56 L 16 100/62 96 08/31/20 00:00 97.5 F 72 16 108/51 92 L 08/30/20 21:00 85 16 96 08/30/20 20:32 53 L 16 91 L 08/30/20 17:00 98.0 F 55 L 17 95/55 97 08/30/20 15:51 97 08/30/20 14:41 42 L 12 97 08/30/20 12:56 97.1 F 54 L 16 102/55 96 08/30/20 10:48 51 L 20 93 L 08/30/20 08:47 97.6 F 63 14 95/51 97 Oxygen-Last 24 hours Oxygen Flowrate (L/min)-RT 2 Oxygen Flowrate (L/min)-RT 2 Pain Assessment - Last Documented Pain Intensity 0 Intake and Output: Intake & Output 08/28/20 08/29/20 08/30/20 08/31/20 11:59 11:59 11:59 11:59 Intake Total 802 4043 1794 1717 Output Total 1400 1250 1500 1700 Balance -598 2793 294 17 Weight 72.7 kg 70.2 kg 75.5 kg 78.7 kg Lab Results: Lab Results-Last 24 Hours 08/30/20 08/30/20 08/30/20 Range/Units 05:00 05:09 10:26 WBC (4.0-10.5) K/mm3 RBC (4.1-5.6) M/mm3 Hgb (12.5-18.0) gm/dl Hct (42-50) % MCV (78-100) fl MCH (26-32) pg MCHC (32-36) g/dl RDW (11.5-14.0) % Plt Count (150-450) K/mm3 MPV (7.5-11.0) fl Sodium (137-145) mmol/L Potassium (3.5-5.1) mmol/L Chloride (98-107) mmol/L Carbon Dioxide (22-30) mmol/L Anion Gap (5-15) MEQ/L BUN (9-20) mg/dL Creatinine (0.66-1.25) mg/dL Estimated GFR ML/MIN Glucose (74-106) mg/dL POC Glucometer 96 (74 to 106) mg/dL Calcium (8.4-10.2) mg/dL Valproic Acid 45.9 L (50-100) ug/mL Slides for Path Review YES 08/30/20 08/31/20 08/31/20 Range/Units 15:42 04:27 04:27 WBC 4.9 (4.0-10.5) K/mm3 RBC 3.39 L (4.1-5.6) M/mm3 Hgb 11.1 L (12.5-18.0) gm/dl Hct 34.6 L (42-50) % MCV 102.1 H (78-100) fl MCH 32.7 H (26-32) pg MCHC 32.1 (32-36) g/dl RDW 16.9 H (11.5-14.0) % Plt Count 63 L (150-450) K/mm3 MPV 12.8 H (7.5-11.0) fl Sodium 139 (137-145) mmol/L Potassium 3.9 (3.5-5.1) mmol/L Chloride 107 (98-107) mmol/L Carbon Dioxide 31 H (22-30) mmol/L Anion Gap 4.9 L (5-15) MEQ/L BUN 18 (9-20) mg/dL Creatinine 0.30 L (0.66-1.25) mg/dL Estimated GFR > 60.0 ML/MIN Glucose 91 (74-106) mg/dL POC Glucometer 94 (74 to 106) mg/dL Calcium 8.7 (8.4-10.2) mg/dL Valproic Acid (50-100) ug/mL Slides for Path Review 08/31/20 Range/Units 08:08 WBC (4.0-10.5) K/mm3 RBC (4.1-5.6) M/mm3 Hgb (12.5-18.0) gm/dl Hct (42-50) % MCV (78-100) fl MCH (26-32) pg MCHC (32-36) g/dl RDW (11.5-14.0) % Plt Count (150-450) K/mm3 MPV (7.5-11.0) fl Sodium (137-145) mmol/L Potassium (3.5-5.1) mmol/L Chloride (98-107) mmol/L Carbon Dioxide (22-30) mmol/L Anion Gap (5-15) MEQ/L BUN (9-20) mg/dL Creatinine (0.66-1.25) mg/dL Estimated GFR ML/MIN Glucose (74-106) mg/dL POC Glucometer 98 (74 to 106) mg/dL Calcium (8.4-10.2) mg/dL Valproic Acid (50-100) ug/mL Slides for Path Review Radiology Exams: Radiology Procedures Category Date Time Status CHEST 1 VIEW (PORTABLE) DAILY Exams 08/31/20 06:00 Taken CHEST 1 VIEW (PORTABLE) DAILY Exams 09/01/20 06:00 Ordered CHEST 1 VIEW (PORTABLE) DAILY Exams 09/02/20 06:00 Ordered CHEST 1 VIEW (PORTABLE) Routine Exams 08/30/20 06:18 Completed Multi-Disciplinary Progress Notes: Multi-Disciplinary Progress Notes 08/30/20 10:45 Case Management Note by Joann Sanderson NO CHANGE IN DC PLANS WILL CONTINUE TO FOLLOW Initialized on 08/30/20 10:45 - END OF NOTE Assessment/Plan (1) Bilateral pneumonia Current Visit: Yes Status: Acute Qualifiers: Pneumonia type: due to unspecified organism Lung location: unspecified part of lung Qualified Code(s): J18.9 - Pneumonia, unspecified organism Assessment & Plan: clinically and radiographically improved february d/c tomorrow. Code(s): J18.9 - PNEUMONIA, UNSPECIFIED ORGANISM (2) Seizure Current Visit: Yes Status: Acute Assessment & Plan: stable, no further seizures with lowered keppra dose and no further iv induced desaturations. Code(s): R56.9 - UNSPECIFIED CONVULSIONS
--- NOTE | 2020-08-31 08:54 | XRAY ---
Indication: Pneumonia. Comparison: One day earlier. Portable chest unchanged again demonstrating bibasilar infiltrates/atelectasis, small bibasilar effusions, right hemidiaphragm elevation, epidural tube, and SMT TECHNICIAN shunt catheter. Heart is not enlarged. No new cardiopulmonary abnormalities.
[2020-08-31] MEDS: ROCEPHIN 1 Gm-D5w 50 ml Bag** 1 G/50 ML IVPB IV SCH (09:34)
[2020-08-31] MEDS: MULTIVITAMIN LIQUID G-TUBE SCH (09:37)
[2020-08-31] MEDS: PROTONIX 40 MG IV IV SCH (09:37)
[2020-08-31] MEDS: KEPPRA 500 MG G-TUBE SCH ×2 (09:37→22:24)
[2020-08-31] MEDS: Depakene 250 MG/5 ML Syrup G-TUBE SCH ×2 (09:39→22:25)
[2020-08-31] MEDS: BACLOFEN IJ SCH (09:40)
[2020-08-31] MEDS: Zithromax 500 MG/ 250 ML NaCl Premix 500 MG/250 ML IVPB IV SCH (10:20)
[2020-09-01] MEDS: solu-MEDROL 125 MG IV SCH ×2 (00:28→05:55)
[2020-09-01] MEDS: Robitussin 100 MG/5 ML PO SCH (03:28)
[2020-09-01 05:42] LABS: Hematocrit 34.4 % (42-50); Hemoglobin 11.1 gm/dl (12.5-18.0); Mean Cell Volume 101.2 fl (78-100); Mean Corpuscular Hemoglobin 32.6 pg (26-32); Mean Corpuscular Hgb Concent. 32.3 g/dl (32-36); Mean Platelet Volume 12.5 fl (7.5-11.0); Platelet Count 62 K/mm3 (150-450); Red Cell Distribution Width 16.4 % (11.5-14.0); White Blood Count 4.1 K/mm3 (4.0-10.5)
[2020-09-01] MEDS: CLINDAMYCIN-D5W 600 MG/50 ML*** 600 MG/50 ML BAG IV SCH (05:54)
[2020-09-01 06:17] LABS: ANION GAP 5.5 MEQ/L (5-15); BLOOD UREA NITROGEN 20 mg/dL (9-20); CHLORIDE 105 mmol/L (98-107); Calcium 8.7 mg/dL (8.4-10.2); Carbon Dioxide 32 mmol/L (22-30); EST GLOMERULAR FILTRATION RATE > 60.0 ML/MIN; Glucose 100 mg/dL (74-106); SODIUM 138 mmol/L (137-145)
[2020-09-01] MEDS: DUONEB 0.5-3 MG/3 ml Neb IH SCH (06:36)
[2020-09-01 06:51] VITALS: PULSE 47; O2SAT 91
[2020-09-01 06:54] VITALS: BP 114/68
[2020-09-01 08:15] LABS: Slide Review YES
--- NOTE | 2020-09-01 08:47 | XRAY ---
Indication: Follow-up pneumonia. Comparison: One day earlier. Portable chest now demonstrates borderline cardiomegaly with vascular congestion and worsening small bibasilar effusions concerning for cardiac decompensation versus fluid overload. Remaining chest unchanged again with bibasilar infiltrates/atelectasis, right hemidiaphragm elevation, epidural tube, and COIL REPAIR TECHNICIAN shunt catheter.
[2020-09-01] MEDS: KEPPRA 500 MG G-TUBE SCH (08:55)
--- NOTE | 2020-09-01 08:55 | PCM.DS ---
Discharge Summary Date of Admission: 08/27/20 14:05 Date of Discharge: 09/01/2020 Admitting Physician: LUCI FRANK Primary Care Provider: SOSA BRICEÑO Allergies Allergies amoxicillin [Amoxicillin] Allergy (Severe, Verified 08/27/20 09:54) Rash Bleach (Sodium Hypochlorite) Allergy (Severe, Verified 08/27/20 09:54) Rash latex Allergy (Severe, Verified 08/27/20 09:54) Rash Hospital Summary - Hospital Course Hospital Course: Pt. admitted with persistent subclinical seizure activity, this was controlled with added keppra, right side cleared quickly with iv cleocin, left side persisted with agtelectasis/infiltrate, with some improvement by today, parents note patient has been to baseline the past 3 days and no further concerns, feel confident in discharge today. - Vitals & Intake/Output Vital Signs: Vital Signs Temperature 97.3 F 09/01/20 06:52 Pulse Rate 47 L 09/01/20 06:52 Respiratory Rate 18 09/01/20 06:52 Blood Pressure 114/68 09/01/20 06:52 O2 Sat by Pulse Oximetry 91 L 09/01/20 06:52 Intake & Output: Intake & Output 08/29/20 08/30/20 08/31/20 09/01/20 11:59 11:59 11:59 11:59 Intake Total 4043 1794 1717 1561 Output Total 1250 1500 1700 1950 Balance 2793 294 17 -389 Weight 70.2 kg 75.5 kg 78.7 kg 77.1 kg - Lab Result Diagrams: 09/01/20 05:10 09/01/20 04:40 Lab Results-Last 24 Hrs: Lab Results-Last 24 Hours 08/31/20 08/31/20 08/31/20 Range/Units 11:59 16:05 20:51 WBC (4.0-10.5) K/mm3 RBC (4.1-5.6) M/mm3 Hgb (12.5-18.0) gm/dl Hct (42-50) % MCV (78-100) fl MCH (26-32) pg MCHC (32-36) g/dl RDW (11.5-14.0) % Plt Count (150-450) K/mm3 MPV (7.5-11.0) fl Sodium (137-145) mmol/L Potassium (3.5-5.1) mmol/L Chloride (98-107) mmol/L Carbon Dioxide (22-30) mmol/L Anion Gap (5-15) MEQ/L BUN (9-20) mg/dL Creatinine (0.66-1.25) mg/dL Estimated GFR ML/MIN Glucose (74-106) mg/dL POC Glucometer 136 H 114 H 99 (74 to 106) mg/dL Calcium (8.4-10.2) mg/dL Slides for Path Review 09/01/20 09/01/20 09/01/20 Range/Units 04:40 05:10 06:19 WBC 4.1 (4.0-10.5) K/mm3 RBC 3.40 L (4.1-5.6) M/mm3 Hgb 11.1 L (12.5-18.0) gm/dl Hct 34.4 L (42-50) % MCV 101.2 H (78-100) fl MCH 32.6 H (26-32) pg MCHC 32.3 (32-36) g/dl RDW 16.4 H (11.5-14.0) % Plt Count 62 L (150-450) K/mm3 MPV 12.5 H (7.5-11.0) fl Sodium 138 (137-145) mmol/L Potassium 4.0 (3.5-5.1) mmol/L Chloride 105 (98-107) mmol/L Carbon Dioxide 32 H (22-30) mmol/L Anion Gap 5.5 (5-15) MEQ/L BUN 20 (9-20) mg/dL Creatinine 0.30 L (0.66-1.25) mg/dL Estimated GFR > 60.0 ML/MIN Glucose 100 (74-106) mg/dL POC Glucometer 101 (74 to 106) mg/dL Calcium 8.7 (8.4-10.2) mg/dL Slides for Path Review YES Micro Results-Entire Visit: Microbiology 08/27/20 10:13 Blood Culture Gram Stain - Final Blood Not Reportable Blood Culture - Final NO GROWTH 08/27/20 10:17 Blood Culture Gram Stain - Final Blood Not Reportable Blood Culture - Final NO GROWTH 08/27/20 10:21 Urine Culture - Final Catherized NO GROWTH Accuchecks Date 09/01/20 Date 08/31/20 Time 06:19 Time 20:51 - Radiology Exams Ordered Rad Exams-Entire Visit: Radiology Procedures Category Date Time Status CHEST 1 VIEW (PORTABLE) DAILY Exams 08/31/20 06:00 Completed CHEST 1 VIEW (PORTABLE) DAILY Exams 09/01/20 06:00 Completed CHEST 1 VIEW (PORTABLE) DAILY Exams 09/02/20 06:00 Ordered - Procedures and Test Procedures and Tests throughout Hospitalization: Therapy Orders & Screens 08/27/20 14:08 Oxygen Nasal Cannula 3 lpm Comment: 08/27/20 14:55 Respiratory Therapy Assessment DAILY Comment: 08/27/20 16:01 RT Screen per Nursing Assess ONCE Comment: Protocol Order Physician Instructions: Greater than 3 points order RT Admission Screen Reason For Exam: Triggered on Admission Diagnosis: PNE,Seizures, Respitory Failure Diagnosis: PNE,Seizures, Respitory Failure Pneumonia: Yes Home O2: No Asthma: No CHF: No Home CPAP/BIPAP: No Home Nebs/MDI: Yes Total Points: 8 ST Screen per Nursing Assess ONCE Comment: Protocol Order Physician Instructions: Greater than [address] Admission Screening Reason For Exam: Triggered on Admission Diagnosis: PNE,Seizures, Respitory Failure CVA/Dyshpagia/Aphasia: Yes Cognitive Deficits: No Dehydration/Nutrition Deficit: No Reflux: No Oral-Motor Difficulties: No Pneumonia: Yes Custodial Resident: No Total Points: 10 08/28/20 08:33 EEG 41-60 Minutes (Normal) ONCE Comment: Reason For Exam: Diagnosis: PNE,Seizures, Respitory Failure Discharge Exam General Appearance: no apparent distress Ears, Nose, Throat Exam: normal ENT inspection Neck Exam: normal inspection Respiratory Exam: normal breath sounds (upper airway turbulence noted on exam), lungs clear, rhonchi, No chest tenderness Cardiovascular Exam: regular rate/rhythm, normal heart sounds Gastrointestinal/Abdomen Exam: soft Final Diagnosis/Problem List - Final Discharge Diagnosis/Problem (1) Bilateral pneumonia Current Visit: Yes Status: Acute Assessment & Plan: will d/c with per g-tube medications cleocin and azithromycin for 5 days Code(s): J18.9 - PNEUMONIA, UNSPECIFIED ORGANISM (2) Seizure Current Visit: Yes Status: Acute Assessment & Plan: continue depakote and keppra until follow-up with neurology Code(s): R56.9 - UNSPECIFIED CONVULSIONS - Discharge Discharge Date: 09/01/20 Disposition: Home, Self-Care Condition: Good Prescriptions: No Action Valproic Acid [Depakene] 500 mg G-TUBE HS Baclofen [Lioresal Intrathecal] 428 gm INTRATHEC DAILY Valproic Acid [Depakene] 250 mg G-TUBE QAM Multivit-Min/Ferrous Fumarate [Multivitamin Liquid] 30 ml G-TUBE DAILY Tizanidine HCl 4 - 8 mg G-TUBE DAILY PRN PRN PRN Reason: Muscle Spasms Acetaminophen [Children's Acetaminophen] 25 ml PO Q4HPRN PRN PRN Reason: Pain And/Or Fever Ibuprofen [Children's Ibuprofen] 25 ml PO Q6HPRN PRN PRN Reason: Pain And/Or Fever Instructions: Seizures, Adult (DC), Aspiration Pneumonia (DC) Follow up with: SOSA BRICEÑO [Primary Care Provider] - MIRI DEAN [NON-STAFF PHY W/O PRIVILEGES] - Forms: Discharge Instructions
[2020-09-01] MEDS: Depakene 250 MG/5 ML Syrup G-TUBE SCH (08:56)
[2020-09-01] MEDS: MULTIVITAMIN LIQUID G-TUBE SCH (08:56)
== END 2020-09-01 10:00 | disposition home or self-care (01) | DRG 195 ==
LOC: ED 09:47 → MED SURG 14:05
PROVIDERS: ADMIT Family Medicine; ATTEND Family Medicine
DX: J18.9 Pneumonia, unspecified organism (principal); R56.9 Unspecified convulsions; Z87.820 Personal history of traumatic brain injury; Z79.899 Other long term (current) drug therapy; R21 Rash and other nonspecific skin eruption
CPT/HCPCS: 36000; 36415; 36600; 70450; 71045; 74176; 80048; 80053; 80164; 81001; 82375; 82803; 82947; 83036; 83605; 84134; 85025; 85027; 87040; 87086; 90686; 93005; 93041; 94640; 94760; 94762; 94770; 95812; 96360; 96365; 96367; 96374; 96375; 99285; 99291; G0008; J0456; J0696; J1953; J1956; J2060; J2405; J2930; J7609; A9270-GY

== ENCOUNTER 2021-03-05 11:59 | Inpatient (IN) | payer MEDICAID ==
[2021-03-05] MEDS ORDERED: Zofran 4 MG/2 ML VIAL ONE (12:24)
[2021-03-05] MEDS ORDERED: MORPHINE SULFATE 2 MG INJ ONE (12:24)
[2021-03-05] MEDS ORDERED: Sodium Chloride 0.9% 1000 ML 1,000 ML ONE (12:24)
[2021-03-05 12:39] LABS: Absolute Neutrophil Ct (ANC) 9.16 (1.4-6.9); BASOPHIL % 0.4 % (0.0-0.4); Basophil (Absolute #) 0.05 (0-0.4); Eosinophil % 2.6 % (0.00-5.0); Eosinophil (Absolute #) 0.31 (0-0.5); Hematocrit 33.2 % (42-50); Hemoglobin 10.2 gm/dl (12.5-18.0); Lymphocyte (Absolute #) 1.22 (1.0-4.6); Lymphocytes % 10.3 % (24.0-44.0); Mean Cell Volume 104.4 fl (78-100); Mean Corpuscular Hemoglobin 32.1 pg (26-32); Mean Corpuscular Hgb Concent. 30.7 g/dl (32-36); Monocyte (Absolute #) 1.14 (0.0-1.3); Monocytes % 9.6 % (0.0-12.0); Neutrophil % 77.1 % (36.0-66.0); Platelet Count 333 K/mm3 (150-450); Red Blood Count 3.18 M/mm3 (4.1-5.6); White Blood Count 11.9 K/mm3 (4.0-10.5)
[2021-03-05 13:00] LABS: ALBUMIN 3.8 g/dL (3.5-5.0); ALKALINE PHOSPHATASE 177 U/L (38-126); BLOOD UREA NITROGEN 22 mg/dL (9-20); CHLORIDE 85 mmol/L (98-107); Calcium 8.9 mg/dL (8.4-10.2); Creatinine 1 0.44 mg/dL (0.66-1.25); EST GLOMERULAR FILTRATION RATE > 60.0 ML/MIN; Glucose 119 mg/dL (74-106); LIPASE 117 U/L (23-300); MAGNESIUM 2.2 mg/dL (1.6-2.3); Potassium 3.5 mmol/L (3.5-5.1); SGOT/AST 44 U/L (17-59); SGPT/ALT 48 U/L (0-50); SODIUM 131 mmol/L (137-145)
--- NOTE | 2021-03-05 13:00 | XRAY ---
Indication: Short of breath. Comparison: September 01, 2020. Portable chest rotated/side bent with increasing large right effusion with complete opacification hemitorax. There remains small left effusion, left infrahilar infiltrate/atelectasis, epidural tube, and SURGICAL ELASTIC KNITTER shunt catheter. Cardiac silhouette obscured.
[2021-03-05] MEDS ORDERED: Zofran 4 MG/2 ML VIAL IV ONE (13:06)
[2021-03-05] MEDS ORDERED: MORPHINE SULFATE 2 MG INJ IM ONE (13:06)
[2021-03-05 13:09] LABS: Carbon Dioxide 39 mmol/L (22-30)
[2021-03-05 13:11] LABS: ANION GAP 10.5 MEQ/L (5-15)
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
[2021-03-05] MEDS: Sodium Chloride 0.9% 1000 ML 1,000 ML IV SCH ×2 (13:48→19:33)
--- NOTE | 2021-03-05 14:34 | XRAY ---
Indication: Short of breath and congestion. Elevated d-dimer. Multiple contiguous images obtained through the chest using 100 cc Isovue 370 contrast and PE protocol. Comparison: January 29, 2018. There is good opacification of the pulmonary arteries. However respiration artifact and beam artifact from patient's arms limits evaluation for pulmonary embolus. No obvious central pulmonary embolus. Heart is not enlarged. Aorta is normal in course and caliber. Interval worsening large right effusion with complete opacification of the hemithorax, subsequent right lung atelectasis, and mass effect translating heart/mediastinal structures. Left effusion has cleared with mid to lower lung subsegmental atelectasis/scarring. Bony thorax grossly intact again with small multilevel Schmorl nodes, epidural catheter terminating T1, and anterior chest wall LEASING MANAGER shunt catheter. Grossly stable incidental bilateral gynecomastia. Limited upper abdomen again demonstrates 13 cm splenomegaly and mild fatty liver. Impression: 1. Pulmonary embolus evaluation limited due to respiration and beam artifact. Again no obvious central pulmonary embolus. 2. Interval worsening large right effusion with complete opacification of the hemithorax, right lung atelectasis, and mass effect on heart/mediastinal structures. 3. Left mid to lower lung atelectasis/scarring. 4. Again incidental fatty liver, splenomegaly, and bilateral gynecomastia.
[2021-03-05 15:03] LABS: Appearance SLIGHTLY CLOUDY (CLEAR); Bilirubin NEGATIVE (NEGATIVE); Blood NEGATIVE Ery/ul (0-5); Glucose NEGATIVE (NEGATIVE); Ketones NEGATIVE (NEGATIVE); Leukocyte Esterase NEGATIVE (NEGATIVE); Mucus SLIGHT /HPF (NEGATIVE); Nitrite NEGATIVE (NEGATIVE); Protein,Urine Dip 30 (Negative); Specific Gravity >1.060 (1.005-1.025); Urobilinogen NEGATIVE mg/dL (0-1); WBC 0-2 /HPF (0-5)
[2021-03-05 17:14] LABS: INFLUENZA A NEGATIVE (NEGATIVE); INFLUENZA B NEGATIVE (NEGATIVE); RESPIRATORY SYNCTIAL VIRUS NEGATIVE (Negative)
[2021-03-05] MEDS ORDERED: Zofran 4 MG/2 ML VIAL IV PRN (18:36)
[2021-03-05] MEDS: MORPHINE SULFATE 2 MG INJ IV PRN (19:36)
[2021-03-05] MEDS ORDERED: TYLENOL SUSPENSION 160 MG/5 ML PEG PRN (20:47)
[2021-03-05] MEDS: KEPPRA 500 MG PEG SCH (21:51)
[2021-03-05] MEDS: Depakene 250 MG/5 ML Syrup G-TUBE SCH (21:51)
[2021-03-05] MEDS ORDERED: Depakene 250 MG/5 ML Syrup PO SCH (22:00)
[2021-03-06] MEDS: MORPHINE SULFATE 2 MG INJ IV PRN ×5 (00:47→18:28)
[2021-03-06] MEDS ORDERED: Sodium Chloride 0.9% 1000 ML 1,000 ML ONE (04:47)
[2021-03-06] MEDS: Sodium Chloride 0.9% 1000 ML 1,000 ML IV SCH (04:49)
[2021-03-06] MEDS ORDERED: PROVENTIL 2.5 MG/3 ML NEB IH PRN (05:05)
[2021-03-06 05:10] LABS: BASOPHIL % 0.4 % (0.0-0.4); Basophil (Absolute #) 0.05 (0-0.4); Eosinophil % 2.3 % (0.00-5.0); Eosinophil (Absolute #) 0.31 (0-0.5); Hematocrit 31.8 % (42-50); Hemoglobin 9.6 gm/dl (12.5-18.0); Lymphocyte (Absolute #) 1.31 (1.0-4.6); Lymphocytes % 9.9 % (24.0-44.0); Mean Cell Volume 104.6 fl (78-100); Mean Corpuscular Hemoglobin 31.6 pg (26-32); Mean Corpuscular Hgb Concent. 30.2 g/dl (32-36); Monocyte (Absolute #) 1.19 (0.0-1.3); Neutrophil % 78.4 % (36.0-66.0); Platelet Count 370 K/mm3 (150-450); Red Blood Count 3.04 M/mm3 (4.1-5.6); Red Cell Distribution Width 17.9 % (11.5-14.0); White Blood Count 13.3 K/mm3 (4.0-10.5)
[2021-03-06 06:00] LABS: INR 1.13 (0.8-3.0); PROTIME 12.8 SECONDS (8.83-12.87)
[2021-03-06 06:03] LABS: PTT 33.2 SECONDS (24.1-36.1)
[2021-03-06 06:07] LABS: ALBUMIN 3.4 g/dL (3.5-5.0); ALKALINE PHOSPHATASE 149 U/L (38-126); ANION GAP 7.7 MEQ/L (5-15); BLOOD UREA NITROGEN 19 mg/dL (9-20); CHLORIDE 90 mmol/L (98-107); Calcium 8.6 mg/dL (8.4-10.2); Carbon Dioxide 39 mmol/L (22-30); Creatinine 1 0.31 mg/dL (0.66-1.25); EST GLOMERULAR FILTRATION RATE > 60.0 ML/MIN; Glucose 102 mg/dL (74-106); SGOT/AST 38 U/L (17-59); SGPT/ALT 36 U/L (0-50); SODIUM 132 mmol/L (137-145); Total Protein 6.3 g/dL (6.3-8.2)
[2021-03-06] MEDS: D5W/0.45NS W/ 20mEq KCl 1000 ML 1,000 ML IV SCH ×3 (09:24→23:20)
[2021-03-06] MEDS ORDERED: [UNRECOGNIZED DRUG - OTHER] G-TUBE SCH (10:00)
[2021-03-06] MEDS ORDERED: VALPROIC ACID 250 MG G-TUBE SCH (10:00)
[2021-03-06] MEDS ORDERED: BACLOFEN INTRATHEC SCH (10:00)
[2021-03-06] MEDS ORDERED: FERROUS FUMARATE G-TUBE SCH (10:00)
--- NOTE | 2021-03-06 11:01 | XRAY ---
Indication: Right pleural effusion. Thoracentesis for therapeutic and diagnostic purpose. Bedside thoracentesis performed. Informed consent obtained with patient's father. Initial sonographic imaging of the right lower back was performed for localization. Skin was prepped and draped in sterile fashion. 1% lidocaine plain used for local anesthesia. Tiny skin incision made. Then a 5 Serbian ITN thoracentesis catheter with introducer needle was inserted into the right hemithorax. Small flash of effusion seen in the syringe at which point the outer catheter was advanced and the inner needle removed. Catheter was then connected to a Vacutainer. Approximately 2 L brownish transudative fluid was aspirated. Fluid was sent to laboratory for analysis. Repeat sonogram demonstrates effusion clearing. Hemostasis achieved using digital pressure over the puncture site. Small Band-Aid applied. Postoperative instructions and orders given. Postprocedure chest radiograph pending. Impression: Technically successful right chest thoracentesis using ultrasound guidance for diagnostic and therapeutic purpose. No immediate complications.
[2021-03-06] MEDS ORDERED: PHARMACY DOSING REQUEST MC ONE (11:02)
[2021-03-06] MEDS: MULTIVITAMIN LIQUID G-TUBE SCH (11:33)
[2021-03-06] MEDS: KEPPRA 500 MG PEG SCH ×2 (11:33→21:59)
[2021-03-06] MEDS: Depakene 250 MG/5 ML Syrup G-TUBE SCH ×2 (11:33→21:16)
--- NOTE | 2021-03-06 11:49 | XRAY ---
Indication: Status post right thoracentesis. Comparison: One day earlier. Portable chest demonstrates mild diminished right effusion with mild right lung aeration consistent with recent thoracentesis. No pneumothorax. Cardiac silhouette remains obscured. Mild worsening left infrahilar infiltrate/atelectasis/effusion.
[2021-03-06] MEDS: Levofloxacin 500MG/100ML D5W 500 MG/100 ML BAG IV SCH (12:07)
[2021-03-06] MEDS: PATIENT OWN MEDICATION IJ SCH (12:16)
[2021-03-06] MEDS: Zanaflex 4 MG PO PRN ×2 (16:07→20:13)
--- NOTE | 2021-03-06 16:33 | XRAY ---
Indication: PICC line placement. Comparison: Taken earlier in the day. Portable chest demonstrates new left arm PICC line with tip projecting over the right heart. Recommend withdrawal at least 10 cm. Remaining chest again demonstrates large right effusion/atelectasis and left mid to lower lung infiltrate/atelectasis/effusion.
--- NOTE | 2021-03-06 16:51 | XRAY ---
Indication: PICC line adjustment. Comparison: Taken earlier in the day. Portable chest demonstrates left PICC line withdrawal with tip now projecting over the SVC in good position. Remaining cardiopulmonary structures unchanged. Study was reviewed with the nurse who inserted PICC line.
[2021-03-07] MEDS: MORPHINE SULFATE 2 MG INJ IV PRN ×2 (02:10→10:08)
[2021-03-07] MEDS: Motrin 100 MG/5 ML PEG PRN ×2 (04:00→21:49)
[2021-03-07] MEDS: Zanaflex 4 MG PO PRN ×3 (05:15→22:14)
[2021-03-07 05:49] LABS: Hematocrit 28.1 % (42-50); Hemoglobin 8.5 gm/dl (12.5-18.0); Mean Cell Volume 103.7 fl (78-100); Mean Corpuscular Hemoglobin 31.4 pg (26-32); Mean Corpuscular Hgb Concent. 30.2 g/dl (32-36); Mean Platelet Volume 10.2 fl (7.5-11.0); Platelet Count 350 K/mm3 (150-450); Red Blood Count 2.71 M/mm3 (4.1-5.6); Red Cell Distribution Width 17.4 % (11.5-14.0)
[2021-03-07] MEDS ORDERED: Lasix 20 MG/2 ML IV ONE (06:00)
[2021-03-07 06:15] LABS: ALBUMIN 2.8 g/dL (3.5-5.0); ALKALINE PHOSPHATASE 108 U/L (38-126); ANION GAP 6.8 MEQ/L (5-15); BLOOD UREA NITROGEN 20 mg/dL (9-20); CHLORIDE 89 mmol/L (98-107); Calcium 8.1 mg/dL (8.4-10.2); Carbon Dioxide 36 mmol/L (22-30); Creatinine 1 0.34 mg/dL (0.66-1.25); EST GLOMERULAR FILTRATION RATE > 60.0 ML/MIN; Glucose 104 mg/dL (74-106); Potassium 4.3 mmol/L (3.5-5.1); SGOT/AST 32 U/L (17-59); SGPT/ALT 23 U/L (0-50); SODIUM 128 mmol/L (137-145); Total Protein 5.5 g/dL (6.3-8.2)
[2021-03-07 06:26] LABS: Lymphocytes 8 % (24-44); Monocyte 6 % (0.0-12.0); Neutrophils 86 % (36.-66.); Total Cells Counted 100
[2021-03-07 06:28] LABS: ANISOCYTOSIS 1+; Hypochromia 1+; Platelet Estimate NORMAL (NORMAL); Poikilocytosis 1+; Polychromasia 1+
[2021-03-07] MEDS: D5W/0.45NS W/ 20mEq KCl 1000 ML 1,000 ML IV SCH (07:10)
--- NOTE | 2021-03-07 08:39 | XRAY ---
Indication: Increased congestion. Low-grade fever. Comparison: One day earlier. Portable chest demonstrates interval increasing left mid to lower lung infiltrate/atelectasis/effusion. Also worsening right effusion/atelectasis with now complete opacification hemithorax. Cardiac silhouette obscured. Support catheter/tubing unchanged.
[2021-03-07] MEDS: Levofloxacin 500MG/100ML D5W 500 MG/100 ML BAG IV SCH (09:47)
[2021-03-07] MEDS: Depakene 250 MG/5 ML Syrup G-TUBE SCH ×2 (09:47→21:02)
[2021-03-07] MEDS: PROTONIX 40 MG IV IV SCH (09:47)
[2021-03-07] MEDS: MULTIVITAMIN LIQUID G-TUBE SCH (09:48)
[2021-03-07 10:38] LABS: ABO TYPING A; Antibody Screen NEGATIVE (NEGATIVE); RH TYPING NEGATIVE
[2021-03-07 10:39] LABS: CROSS MATCH (PRBC) COMPATIBLE (COMPATIBLE)
[2021-03-07] MEDS: KEPPRA 500 MG PEG SCH ×2 (10:43→21:00)
[2021-03-07] MEDS: PATIENT OWN MEDICATION IJ SCH (10:43)
[2021-03-07] MEDS ORDERED: Sodium Chloride 0.9% 1000 ML 1,000 ML ONE (11:13)
[2021-03-07] MEDS ORDERED: Sodium Chloride 0.9% 1000 ML 1,000 ML IV SCH (11:15)
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
[2021-03-07] MEDS ORDERED: XYLOCAINE 1% HCL 20 ML MDV ONE (15:13)
[2021-03-07] MEDS ORDERED: Ketamine HCl 50 MG/ML ONE (15:21)
[2021-03-07] MEDS ORDERED: Versed 2 MG/2 ML Injection ONE (15:21)
--- NOTE | 2021-03-07 16:42 | XRAY ---
Indication: Chest tube placement. Intraoperative fluoroscopy provided for 12 seconds. 2 coned down digital spot views demonstrates a incompletely visualized chest tube with tip not included in [id number] and no left/right side markers. Correlate with intraoperative findings/report.
--- NOTE | 2021-03-07 17:00 | XRAY ---
12 seconds fluoroscopy time in surgery for chest tube placement.
[2021-03-08] MEDS: D5W/0.45NS W/ 20mEq KCl 1000 ML 1,000 ML IV SCH (00:33)
[2021-03-08] MEDS: Zanaflex 4 MG PO PRN ×2 (04:38→14:50)
[2021-03-08] MEDS: Motrin 100 MG/5 ML PEG PRN ×2 (04:57→14:50)
[2021-03-08 05:14] LABS: Absolute Neutrophil Ct (ANC) 10.88 (1.4-6.9); BASOPHIL % 0.3 % (0.0-0.4); Basophil (Absolute #) 0.04 (0-0.4); Eosinophil % 1.6 % (0.00-5.0); Eosinophil (Absolute #) 0.21 (0-0.5); Hemoglobin 9.4 gm/dl (12.5-18.0); Lymphocyte (Absolute #) 1.41 (1.0-4.6); Lymphocytes % 10.5 % (24.0-44.0); Mean Cell Volume 98.4 fl (78-100); Mean Corpuscular Hemoglobin 30.8 pg (26-32); Mean Corpuscular Hgb Concent. 31.3 g/dl (32-36); Mean Platelet Volume 9.9 fl (7.5-11.0); Monocyte (Absolute #) 0.91 (0.0-1.3); Monocytes % 6.8 % (0.0-12.0); Neutrophil % 80.8 % (36.0-66.0); Platelet Count 277 K/mm3 (150-450); Red Blood Count 3.05 M/mm3 (4.1-5.6); Red Cell Distribution Width 17.8 % (11.5-14.0); White Blood Count 13.5 K/mm3 (4.0-10.5)
[2021-03-08 05:59] LABS: ALBUMIN 2.3 g/dL (3.5-5.0); ALKALINE PHOSPHATASE 97 U/L (38-126); ANION GAP 10.1 MEQ/L (5-15); BLOOD UREA NITROGEN 14 mg/dL (9-20); CHLORIDE 93 mmol/L (98-107); Calcium 6.2 mg/dL (8.4-10.2); Carbon Dioxide 31 mmol/L (22-30); EST GLOMERULAR FILTRATION RATE > 60.0 ML/MIN; Glucose 110 mg/dL (74-106); Potassium 5.3 mmol/L (3.5-5.1); SGOT/AST 33 U/L (17-59); SGPT/ALT 20 U/L (0-50); SODIUM 129 mmol/L (137-145); Total Protein 4.6 g/dL (6.3-8.2)
[2021-03-08] MEDS ORDERED: PHARMACY DOSING REQUEST MC ONE (07:58)
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
[2021-03-08] MEDS ORDERED: PHARMACY DOSING REQUIRED: VANCOMYCIN MC ONE (08:30)
--- NOTE | 2021-03-08 08:43 | XRAY ---
Indication: Chest tube follow-up. Comparison: One day earlier. Portable chest demonstrates new right chest tube with tip projecting near apex and mild chest wall subcutaneous air along the tube track. Large right effusion/atelectasis has minimally improved as evidenced by increased right upper lung aeration. Left mid to lower lung infiltrate/atelectasis/effusion has also mildly improved. Remaining heart and support catheter/tubing unchanged.
[2021-03-08] MEDS: Sodium Chloride 0.9% 1000 ML 1,000 ML IV SCH ×3 (09:01→19:34)
[2021-03-08] MEDS: Depakene 250 MG/5 ML Syrup G-TUBE SCH ×2 (09:05→22:34)
[2021-03-08] MEDS: PROTONIX 40 MG IV IV SCH (09:07)
[2021-03-08] MEDS: MULTIVITAMIN LIQUID G-TUBE SCH (09:07)
[2021-03-08] MEDS: VANCOMYCIN 1.5 GRAM/300 ML BAG 1.5 GM/300 ML PIGGYBACK IV SCH ×2 (09:07→22:21)
[2021-03-08] MEDS: PATIENT OWN MEDICATION IJ SCH (09:07)
[2021-03-08] MEDS: KEPPRA 500 MG PEG SCH ×2 (10:00→21:31)
[2021-03-08] MEDS: Merrem 1 GM 1 G in Sodium Chloride 100ML MINI-BAG PLUS 100 ML IV SCH ×2 (12:33→21:31)
--- NOTE | 2021-03-08 13:14 | OP ---
SURGERY DATE/TIME: 03/07/2021 1520 PREOPERATIVE DIAGNOSIS: Right pneumohemothorax. POSTOPERATIVE DIAGNOSIS: Right hydropneumothorax. PROCEDURE: Right chest tube. SURGEON: Jasson Mcghee M.D. ANESTHESIA: MAC. COMPLICATIONS: None. CONDITION: Stable. INDICATION: The patient had thoracentesis, had persistent pneumothorax with effusion, was felt to require chest tube and was taken to surgery. DESCRIPTION OF PROCEDURE: Left lateral decubitus position, bumped up. Prep and drape. MAC sedation. 1% lidocaine. Transverse incision. Finger clamp followed by finger and the space was opened. The tube was advanced to the apex. Fluoro confirmed the tube in the apex. It was secured at 16 cm. It was functioning nicely. The effusion was totally clear and yellow with no blood. It was hooked to under water seal. The connections were taped. The patient tolerated the procedure satisfactorily. Findings discussed with the family in the waiting room.
--- NOTE | 2021-03-08 15:08 | PROG NOTE ---
Events noted. Chart reviewed. CONSULT DATE: 03/05/2021 HISTORY: The patient had chest tube placed yesterday and remains short of breath. He was placed on BiPAP and now appears to be comfortable. The parents are at bedside. PHYSICAL EXAMINATION: Vital signs showed temperature max of 101.1F, heart rate 58, blood pressure 100/72. Saturating 98%. HEENT: Normocephalic. Oral exam limited. BiPAP mask is in place. NECK: Supple. CVS: First and second heart sounds are normal, regular, rhythmic. RESPIRATORY: Shows diminished but improved breath sounds on right. Chest tube in place and so far has drained about 800 cc off slightly yellow colored fluid. ABDOMEN: Soft. EXTREMITIES: Lower extremities showed no change. LABORATORY DATA AND TESTS: Labs reviewed. Sodium 129. White count 13.5, hemoglobin 9.4, hematocrit 30, PLT 277,000. Chest x-ray is noted. ASSESSMENT: This is a 30 year old male admitted with: 1) Hypoxic respiratory failure. 2) Right pleural effusion, exudative less likely.3) Recent pain pump changed at Hospital. According to Dr. Mcghee's evaluation this appears infected and the patient may require transfer to for addressing the same. RECOMMENDATIONS: Continue present treatment, continue chest tube drainage. The patient is likely to be transferred to and I have advised that the pleural effusion be followed at the same. Continue noninvasive ventilation as needed. Continue IV antibiotics. Follow up cultures. Further recommendations awaiting clinical improvement. PROGNOSIS: Remains guarded. The family is well aware, discussed with parents at bedside. I will be available as needed.
[2021-03-08 19:37] VITALS: O2SAT 98
[2021-03-08 21:03] VITALS: BP 108/54; PULSE 59
[2021-03-09] MEDS: Zanaflex 4 MG PO PRN (00:40)
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
[2021-03-10] MEDS ORDERED: TROUGH DRUG LEVELS IJ ONE (09:30)
== END 2021-03-09 00:57 | DRG 91 ==
LOC: ED 11:59 → MED SURG 18:30 → OBSVTOIN 03-06 08:45 → ICU 03-07 09:29
PROVIDERS: ADMIT Family Medicine; ATTEND Family Medicine
PROC: 0W9900Z Drainage of Right Pleural Cavity with Drainage Device, Open Approach (ICD-10-PCS; principal; 2021-03-06)
PROC: 02HV33Z Insertion of Infusion Device into Superior Vena Cava, Percutaneous Approach (ICD-10-PCS; 2021-03-06)
PROC: 0W9900Z Drainage of Right Pleural Cavity with Drainage Device, Open Approach (ICD-10-PCS; 2021-03-07)
DX: T85.738A Infection and inflammatory reaction due to other nervous system device, implant or graft, initial encounter (principal); G82.50 Quadriplegia, unspecified; J69.0 Pneumonitis due to inhalation of food and vomit; J90 Pleural effusion, not elsewhere classified; J93.9 Pneumothorax, unspecified; R09.02 Hypoxemia; Z87.820 Personal history of traumatic brain injury; E86.0 Dehydration; Z20.828 Contact with and (suspected) exposure to other viral communicable diseases; Z79.899 Other long term (current) drug therapy
CPT/HCPCS: 0241U; 32557; 36000; 36415; 36430; 36573; 51702; 71045; 71260; 76000; 80053; 81001; 82945; 83615; 83690; 83735; 84145; 84157; 84484; 85025; 85379; 85610; 85730; 86850; 86900; 86901; 86922; 87040; 87070; 87075; 87205; 88112; 88173; 89051; 93005; 93041; 93268; 94002; 94760; 94762; 96372; 96374; 96375; 99285; J1940; J1956; J2250; J2270; J2405; P9016; A9270-GY; G0378; J3370

== ENCOUNTER 2021-08-19 11:41 | Emergency (ER) | payer MEDICAID ==
[2012-06-29 11:44] VITALS: BP 112/63
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
== END 2021-08-19 12:40 | disposition home or self-care (01) ==
LOC: ED 11:41
DX: J32.9 Chronic sinusitis, unspecified (principal)
CPT/HCPCS: 99283

== ENCOUNTER 2022-05-21 12:15 | Observation (INO) | payer MEDICAID ==
[2022-05-21] MEDS ORDERED: Sodium Chloride 0.9% 1000 ML 1,000 ML IV SCH (12:30)
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
[2022-05-21] MEDS ORDERED: DUONEB 0.5-3 MG/3 ml Neb IH ONE ×3 (12:32→18:24)
[2022-05-21] MEDS ORDERED: Sodium Chloride 0.9% 1000 ML 1,000 ML ONE (12:41)
[2022-05-21 12:51] LABS: Absolute Neutrophil Ct (ANC) 4.92 x10^3/uL (1.4-6.9); Basophil (Absolute #) 0.01 x10^3/uL (0-0.4); Eosinophil % 0.8 % (0.00-5.0); Eosinophil (Absolute #) 0.05 x10^3/uL (0-0.5); Hematocrit 39.6 % (42-50); Hemoglobin 13.3 g/dL (12.5-18.0); Lymphocyte (Absolute #) 1.04 x10^3/uL (1.0-4.6); Lymphocytes % 16.1 % (24.0-44.0); Mean Cell Volume 100.3 fL (78-100); Mean Corpuscular Hemoglobin 33.7 pg (26-32); Mean Corpuscular Hgb Concent. 33.6 g/dL (32-36); Mean Platelet Volume 12.8 fL (7.5-11.0); Monocyte (Absolute #) 0.45 x10^3/uL (0.0-1.3); Neutrophil % 75.9 % (36.0-66.0); Platelet Count 60 x10^3/uL (150-450); Red Blood Count 3.95 x10^6/uL (4.1-5.6); Red Cell Distribution Width 15.6 % (11.5-14.0); White Blood Count 6.5 x10^3/uL (4.0-10.5)
[2022-05-21 13:06] LABS: Appearance CLEAR (CLEAR); Bilirubin NEGATIVE (NEGATIVE); Glucose NEGATIVE (NEGATIVE); Ketones NEGATIVE (NEGATIVE); Ph 7.5 (5-6); RBC NEGATIVE Ery/ul (0-5); Specific Gravity 1.015 (1.005-1.025)
[2022-05-21 13:07] LABS: Dipstick done @ ? MAIN LAB; Nitrite NEGATIVE (NEGATIVE); Protein,Urine Dip NEGATIVE (Negative); Urobilinogen 0.2 mg/dL (0-1)
[2022-05-21 13:09] LABS: Urine Cultured Indicated? YES
[2022-05-21 13:56] LABS: Slide Review 1 YES
--- NOTE | 2022-05-21 14:04 | XRAY ---
Indication: Pneumonia. Comparison: December 27, 2021 Portable chest demonstrates improving left base infiltrate/atelectasis with mild residual versus recurrent. Stable right hemidiaphragm elevation with right base discoid atelectasis. Heart not enlarged. Bony thorax intact again with levorotoscoliosis, epidural catheter, and DIE ENGRAVER shunt catheter.
[2022-05-21] MEDS ORDERED: CLINDAMYCIN-D5W 600 MG/50 ML*** 600 MG/50 ML BAG IV STA (14:16)
[2022-05-21] MEDS ORDERED: D5w 100ML Mini Bag 100 ML 100 ML IV ONE (14:22)
[2022-05-21] MEDS ORDERED: CLINDAMYCIN-D5W 600 MG/50 ML*** 600 MG/50 ML BAG IV ONE (14:22)
[2022-05-21] MEDS ORDERED: VIBRAMYCIN 100 MG IV ONE (14:22)
[2022-05-21 14:24] LABS: ALBUMIN 4.2 g/dL (3.5-5.0); ALKALINE PHOSPHATASE 117 U/L (38-126); BLOOD UREA NITROGEN 14 mg/dL (9-20); CHLORIDE 100 mmol/L (98-107); Calcium 9.3 mg/dL (8.4-10.2); Carbon Dioxide 33 mmol/L (22-30); Creatinine 1 0.31 mg/dL (0.66-1.25); EST GLOMERULAR FILTRATION RATE > 60.0 ML/MIN; Glucose 97 mg/dL (74-106); Potassium 3.8 mmol/L (3.5-5.1); SGOT/AST 41 U/L (17-59); SGPT/ALT 33 U/L (0-50); SODIUM 140 mmol/L (137-145); Total Protein 7.6 g/dL (6.3-8.2)
[2022-05-21 14:41] LABS: ANION GAP 10.8 MEQ/L (5-15)
[2022-05-21 15:25] LABS: INFLUENZA A NEGATIVE (NEGATIVE); INFLUENZA B NEGATIVE (NEGATIVE); RESPIRATORY SYNCTIAL VIRUS NEGATIVE (Negative); SARS-CoV-2 Xpert Express NEGATIVE (NEGATIVE)
--- NOTE | 2022-05-21 17:11 | XRAY ---
Indication: Decreased oxygenation and decreased body temperature. Pulmonary embolus. Multiple contiguous axial images obtained through the chest using 80 cc Isovue 370 contrast and using PE protocol. Comparison: March 05, 2021. There is good opacification of the pulmonary arteries. Study is degraded by respiration artifact throughout limiting evaluation for pulmonary embolus. Heart not enlarged. Aorta remains normal in course and caliber. No pathologic mediastinal/hilar lymphadenopathy. Interval clearing of previous large right effusion. Moderate bilateral lower lobe subsegmental atelectasis, increased on the left. New tiny left effusion. Right hemidiaphragm elevation, previously obscured. No suspicious pulmonary mass or pneumothorax. Bony thorax intact again with levorotoscoliosis and bilateral gynecomastia. Again anterior chest wall QUALITY ASSURANCE SPECIALIST shunt catheter and epidural catheters. Limited upper abdomen again demonstrates 13.5 cm splenomegaly. Impression: 1. Again respiration artifact limits evaluation for pulmonary embolus. No obvious central pulmonary embolus. 2. Bilateral lower lobe subsegmental atelectasis and tiny left effusion. 3. Incidental elevated right hemidiaphragm, scoliosis, splenomegaly, and bilateral gynecomastia.
[2022-05-21] MEDS: DUONEB 0.5-3 MG/3 ml Neb IH SCH ×2 (18:32→23:18)
[2022-05-21] MEDS: Sodium Chloride 0.9% 1000 ML 1,000 ML IV SCH ×2 (18:47→23:00)
[2022-05-21] MEDS ORDERED: Keppra 250 MG G-TUBE ONE (21:00)
[2022-05-21] MEDS: Depakene 250 MG/5 ML Syrup G-TUBE SCH ×2 (21:44→23:30)
[2022-05-21] MEDS ORDERED: VIBRAMYCIN 100 MG*** 100 MG in Dextrose 5%/Water IV Soln. 100ML PLUS BAG 100 ML IV SCH (22:00)
[2022-05-22] MEDS: DUONEB 0.5-3 MG/3 ml Neb IH SCH ×6 (03:13→23:25)
[2022-05-22 05:19] LABS: Absolute Neutrophil Ct (ANC) 8.88 x10^3/uL (1.4-6.9); Basophil (Absolute #) 0.01 x10^3/uL (0-0.4); Eosinophil % 0.1 % (0.00-5.0); Eosinophil (Absolute #) 0.01 x10^3/uL (0-0.5); Hematocrit 38.8 % (42-50); Hemoglobin 12.7 g/dL (12.5-18.0); Lymphocyte (Absolute #) 0.84 x10^3/uL (1.0-4.6); Lymphocytes % 8.1 % (24.0-44.0); Mean Cell Volume 101.8 fL (78-100); Mean Corpuscular Hemoglobin 33.3 pg (26-32); Mean Corpuscular Hgb Concent. 32.7 g/dL (32-36); Mean Platelet Volume 11.9 fL (7.5-11.0); Monocyte (Absolute #) 0.54 x10^3/uL (0.0-1.3); Monocytes % 5.2 % (0.0-12.0); Neutrophil % 86.2 % (36.0-66.0); Platelet Count 68 x10^3/uL (150-450); Red Blood Count 3.81 x10^6/uL (4.1-5.6); White Blood Count 10.3 x10^3/uL (4.0-10.5)
[2022-05-22 06:12] LABS: ALBUMIN 3.9 g/dL (3.5-5.0); ALKALINE PHOSPHATASE 117 U/L (38-126); ANION GAP 8.6 MEQ/L (5-15); BLOOD UREA NITROGEN 7 mg/dL (9-20); CHLORIDE 102 mmol/L (98-107); Calcium 9.1 mg/dL (8.4-10.2); Carbon Dioxide 31 mmol/L (22-30); Creatinine 1 0.24 mg/dL (0.66-1.25); EST GLOMERULAR FILTRATION RATE > 60.0 ML/MIN; Glucose 92 mg/dL (74-106); SGOT/AST 37 U/L (17-59); SGPT/ALT 27 U/L (0-50); SODIUM 138 mmol/L (137-145); Total Protein 7.2 g/dL (6.3-8.2)
[2022-05-22 06:46] LABS: Slide Review 1 YES
[2022-05-22] MEDS ORDERED: Motrin PO PRN (08:04)
[2022-05-22] MEDS ORDERED: ACETAMINOPHEN 160 MG/5 ML PO PRN (08:04)
[2022-05-22] MEDS ORDERED: TIZANIDINE HCL 2 MG G-TUBE PRN (08:04)
[2022-05-22] MEDS ORDERED: Zanaflex 4 MG PO PRN (08:06)
[2022-05-22] MEDS ORDERED: TYLENOL SUSPENSION 160 MG/5 ML PO PRN (08:10)
[2022-05-22] MEDS ORDERED: Motrin G-TUBE PRN (08:30)
[2022-05-22] MEDS ORDERED: MULTIVIT MIN G-TUBE SCH (10:00)
[2022-05-22] MEDS ORDERED: Bactroban OINTMENT TP SCH (10:00)
[2022-05-22] MEDS ORDERED: FERROUS FUMARATE G-TUBE SCH (10:00)
[2022-05-22] MEDS ORDERED: VALPROIC ACID 250 MG G-TUBE SCH (10:00)
[2022-05-22] MEDS ORDERED: BACLOFEN INTRATHEC SCH (10:00)
[2022-05-22] MEDS: Depakene 250 MG/5 ML Syrup PO SCH (10:00)
[2022-05-22] MEDS ORDERED: [UNRECOGNIZED DRUG - OTHER] G-TUBE SCH (10:00)
[2022-05-22] MEDS ORDERED: LEVETIRACETAM 500 MG/5 ML PEG SCH (10:00)
[2022-05-22] MEDS ORDERED: [UNRECOGNIZED DRUG - OTHER] PEG SCH (10:00)
[2022-05-22] MEDS: ROCEPHIN 1 Gm-D5w 50 ml Bag** 1 G/50 ML IVPB IV SCH (10:00)
[2022-05-22] MEDS: Bactroban OINTMENT TP SCH (11:30)
[2022-05-22] MEDS: Keppra 250 MG PEG SCH ×2 (11:30→17:23)
[2022-05-22] MEDS: MULTIVITAMIN LIQUID G-TUBE SCH (11:30)
[2022-05-22] MEDS: CLINDAMYCIN-D5W 600 MG/50 ML*** 600 MG/50 ML BAG IV SCH ×2 (14:07→21:56)
[2022-05-22] MEDS: Depakene 250 MG/5 ML Syrup G-TUBE SCH (22:32)
[2022-05-23] MEDS: Sodium Chloride 0.9% 1000 ML 1,000 ML IV SCH ×2 (00:57→15:14)
[2022-05-23] MEDS: DUONEB 0.5-3 MG/3 ml Neb IH SCH ×6 (03:05→23:07)
[2022-05-23 05:23] LABS: Hematocrit 32.3 % (42-50); Hemoglobin 10.7 g/dL (12.5-18.0); Mean Cell Volume 101.9 fL (78-100); Mean Corpuscular Hemoglobin 33.8 pg (26-32); Mean Corpuscular Hgb Concent. 33.1 g/dL (32-36); Mean Platelet Volume 12.3 fL (7.5-11.0); Platelet Count 79 x10^3/uL (150-450); Red Blood Count 3.17 x10^6/uL (4.1-5.6); Red Cell Distribution Width 16.3 % (11.5-14.0); White Blood Count 6.8 x10^3/uL (4.0-10.5)
[2022-05-23 05:49] LABS: ANION GAP 5.4 MEQ/L (5-15); BLOOD UREA NITROGEN 9 mg/dL (9-20); CHLORIDE 104 mmol/L (98-107); Calcium 9.3 mg/dL (8.4-10.2); Carbon Dioxide 34 mmol/L (22-30); Creatinine 1 0.31 mg/dL (0.66-1.25); EST GLOMERULAR FILTRATION RATE > 60.0 ML/MIN; Glucose 89 mg/dL (74-106); Potassium 3.8 mmol/L (3.5-5.1); SODIUM 139 mmol/L (137-145)
[2022-05-23] MEDS: CLINDAMYCIN-D5W 600 MG/50 ML*** 600 MG/50 ML BAG IV SCH ×3 (06:19→22:40)
[2022-05-23 06:54] LABS: Slide Review YES
--- NOTE | 2022-05-23 09:08 | XRAY ---
Indication: Follow-up pneumonia. Comparison: May 21, 2022. Portable chest demonstrates interval worsening left mid to lower lung infiltrate/atelectasis with stable tiny effusion. Remaining chest unchanged again with right base discoid atelectasis and right hemidiaphragm elevation. Heart not enlarged.
[2022-05-23] MEDS: ROCEPHIN 1 Gm-D5w 50 ml Bag** 1 G/50 ML IVPB IV SCH (09:18)
[2022-05-23] MEDS: Depakene 250 MG/5 ML Syrup PO SCH (09:18)
[2022-05-23] MEDS: Keppra 250 MG PEG SCH ×2 (10:51→17:07)
[2022-05-23] MEDS: Bactroban OINTMENT TP SCH (10:51)
[2022-05-23] MEDS: MULTIVITAMIN LIQUID G-TUBE SCH (10:51)
[2022-05-23] MEDS ORDERED: PHARMACY DOSING REQUEST MC ONE (13:40)
[2022-05-23] MEDS: Merrem 1 GM in Sodium Chloride 100ML MINI-BAG PLUS 100 ML IV SCH ×2 (15:48→21:32)
[2022-05-23] MEDS: Depakene 250 MG/5 ML Syrup G-TUBE SCH (22:40)
[2022-05-24] MEDS: DUONEB 0.5-3 MG/3 ml Neb IH SCH ×2 (03:38→07:27)
[2022-05-24 05:22] LABS: Hematocrit 30.6 % (42-50); Hemoglobin 10.2 g/dL (12.5-18.0); Mean Cell Volume 101.7 fL (78-100); Mean Corpuscular Hemoglobin 33.9 pg (26-32); Mean Corpuscular Hgb Concent. 33.3 g/dL (32-36); Mean Platelet Volume 12.5 fL (7.5-11.0); Platelet Count 78 x10^3/uL (150-450); Red Blood Count 3.01 x10^6/uL (4.1-5.6); Red Cell Distribution Width 16.7 % (11.5-14.0)
[2022-05-24 05:49] LABS: ANION GAP 8.2 MEQ/L (5-15); BLOOD UREA NITROGEN 9 mg/dL (9-20); CHLORIDE 108 mmol/L (98-107); Calcium 9.3 mg/dL (8.4-10.2); Carbon Dioxide 31 mmol/L (22-30); Creatinine 1 0.28 mg/dL (0.66-1.25); EST GLOMERULAR FILTRATION RATE > 60.0 ML/MIN; Glucose 80 mg/dL (74-106); Potassium 3.8 mmol/L (3.5-5.1); SODIUM 143 mmol/L (137-145)
[2022-05-24] MEDS: CLINDAMYCIN-D5W 600 MG/50 ML*** 600 MG/50 ML BAG IV SCH (05:51)
[2022-05-24] MEDS: Sodium Chloride 0.9% 1000 ML 1,000 ML IV SCH (05:51)
[2022-05-24 06:35] LABS: Slide Review YES
[2022-05-24] MEDS: Merrem 1 GM in Sodium Chloride 100ML MINI-BAG PLUS 100 ML IV SCH (06:39)
[2022-05-24] MEDS: Depakene 250 MG/5 ML Syrup PO SCH (08:13)
--- NOTE | 2022-05-24 08:49 | XRAY ---
Indication: Follow-up pneumonia. Comparison: One day earlier. Portable chest now demonstrates small right effusion. Remaining chest unchanged again with left mid to lower lung infiltrate/atelectasis, small left effusion, right base discoid atelectasis, right hemidiaphragm elevation, scoliosis, epidural catheter, and INSOLE COVERER shunt catheter. Heart not enlarged.
[2022-05-24 09:17] VITALS: BP 101/52; PULSE 44; O2SAT 96
[2022-05-24] MEDS: Keppra 250 MG PEG SCH (10:09)
[2022-05-24] MEDS: MULTIVITAMIN LIQUID G-TUBE SCH (10:09)
[2022-05-24] MEDS: Bactroban OINTMENT TP SCH (10:09)
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
--- NOTE | 2022-06-03 11:46 | PCM.DS ---
Discharge Summary Date of Admission: 05/21/22 17:42 Date of Discharge: 05/24/2022 Admitting Physician: DAYTON LOPEZ DO Primary Care Provider: SOSA BRICEÑO Allergies Allergies amoxicillin [Amoxicillin] Allergy (Severe, Verified 05/21/22 12:51) Rash Bleach (Sodium Hypochlorite) Allergy (Severe, Verified 05/21/22 12:51) Rash latex Allergy (Severe, Verified 05/21/22 12:51) Rash furosemide [From Lasix] Allergy (Verified 05/21/22 12:51) levofloxacin [From Levaquin] Allergy (Verified 05/21/22 12:51) Hospital Summary - Hospital Course Hospital Course: Pt. admitted and required supplemental oxygen which was weaned off by day 2, but day 2 cxr appeared to be slightly worse, his antibiotics were changed as a result. by day 3 the patient cxr had stabilized, no further oxygen supplementation needed and parents felt he was to a baseline and could be safely discharged to home in their care. - Vitals & Intake/Output Vital Signs: Vital Signs Temperature 98.3 F 05/24/22 08:00 Pulse Rate 44 L 05/24/22 08:00 Respiratory Rate 16 05/24/22 08:00 Blood Pressure 101/52 05/24/22 08:00 O2 Sat by Pulse Oximetry 96 05/24/22 08:00 - Lab Result Diagrams: 05/24/22 05:27 05/24/22 05:27 Micro Results-Entire Visit: Microbiology 05/21/22 12:35 Blood Culture Gram Stain - Final Blood Not Reportable Blood Culture - Final NO GROWTH 05/21/22 12:15 Blood Culture Gram Stain - Final Blood Not Reportable Blood Culture - Final NO GROWTH 05/21/22 12:15 Urine Culture - Final Catherized NO GROWTH - Procedures and Test Procedures and Tests throughout Hospitalization: Therapy Orders & Screens 05/21/22 13:07 Respiratory Therapy Assessment DAILY Comment: 05/21/22 18:35 Oxygen Oxymask LPM 3 lpm Comment: Diagnosis: pneumonia Discharge Exam General Appearance: no apparent distress, alert Neurologic Exam: motor deficits (Pt. had not changed from his baseline neurologic status, flat affect, no verbal secondary to traumatic brain injury, contractures of upper extremities persisted) Eye Exam: PERRL, EOMI, eyes nml inspection Ears, Nose, Throat Exam: normal ENT inspection, pharynx normal, moist mucous membranes Neck Exam: normal inspection, non-tender, supple, full range of motion Respiratory Exam: normal breath sounds, lungs clear, No respiratory distress Cardiovascular Exam: regular rate/rhythm, normal heart sounds Gastrointestinal/Abdomen Exam: soft, No tenderness, No mass Male Genitalia Exam: deferred Rectal Exam: deferred Back Exam: normal inspection, No CVA tenderness, No vertebral tenderness Extremity Exam: other (contractures with no purposeful movements) Skin Exam: normal color, warm, dry Final Diagnosis/Problem List - Final Discharge Diagnosis/Problem (1) Acute respiratory failure with hypoxia Status: Acute Assessment & Plan: no longer needed supplemental oxygen support Code(s): J96.01 - ACUTE RESPIRATORY FAILURE WITH HYPOXIA (2) Pneumonia Status: Acute Onset Date: ~01/28/18 Assessment & Plan: d/c with oral abx Code(s): J18.9 - PNEUMONIA, UNSPECIFIED ORGANISM - Discharge Discharge Date: 05/24/22 Disposition: Home, Self-Care Condition: Stable Prescriptions: No Action Valproic Acid [Depakene] 500 mg G-TUBE HS Baclofen [Lioresal Intrathecal] 428 gm INTRATHEC DAILY Valproic Acid [Depakene] 250 mg G-TUBE QAM Multivit-Min/Ferrous Fumarate [Multivitamin Liquid] 30 ml G-TUBE DAILY Tizanidine HCl 4 - 8 mg G-TUBE DAILY PRN PRN PRN Reason: Muscle Spasms Acetaminophen [Children's Acetaminophen] 25 ml PO Q4HPRN PRN PRN Reason: Pain And/Or Fever Ibuprofen [Children's Ibuprofen] 25 ml PO Q6HPRN PRN PRN Reason: Pain And/Or Fever Levetiracetam 500 MG/5 ML [Keppra 500 MG/5 ML] 5 ml PEG BID Mupirocin [Bactroban OINTMENT] 0 gm TP UD Instructions: Pneumonia, Adult (DC) Additional Instructions: THE FOLLOWING PRESCRIPTION WAS CALLED TO THE [facility] [address] DAILY FOR 10 DAYS -- this is available in liquid form Follow up with: KASHMIR TROY NP [NON-STAFF PHY W/O PRIVILEGES] - 05/31/22 11:00 am
== END 2022-05-24 11:33 | disposition home or self-care (01) ==
LOC: ED 12:15 → MED SURG 17:42
PROVIDERS: ADMIT Family Medicine; ATTEND Family Medicine
DX: J96.01 Acute respiratory failure with hypoxia (principal); J18.9 Pneumonia, unspecified organism; T68.XXXA Hypothermia, initial encounter; J32.9 Chronic sinusitis, unspecified; Z79.899 Other long term (current) drug therapy; Z20.828 Contact with and (suspected) exposure to other viral communicable diseases; Z87.820 Personal history of traumatic brain injury
CPT/HCPCS: 0241U; 36000; 36415; 51702; 71045; 71260; 80048; 80053; 80177; 81015; 83605; 84443; 85025; 85027; 87040; 87086; 93041; 93268; 94640; 94760; 94762; 96365; 96368; 99285; G0378; J0696; A9270-GY

== ENCOUNTER 2022-06-17 11:39 | Inpatient (IN) | payer MEDICAID ==
[2022-06-17] MEDS ORDERED: CLINDAMYCIN-D5W 600 MG/50 ML*** 600 MG/50 ML BAG IV STA (12:07)
[2022-06-17] MEDS ORDERED: Merrem 1 GM in Sodium Chloride 100ML MINI-BAG PLUS 100 ML IV ONE (12:10)
[2022-06-17] MEDS ORDERED: Sodium Chloride 0.9% 1000 ML 1,000 ML IV STA ×2 (12:14→12:45)
[2022-06-17] MEDS ORDERED: Merrem IV ONE (12:24)
[2022-06-17] MEDS ORDERED: Sodium Chloride 100ML MINI-BAG PLUS 100 ML IV ONE (12:25)
[2022-06-17] MEDS ORDERED: Sodium Chloride 0.9% 1000 ML 1,000 ML ONE ×2 (12:25→13:24)
[2022-06-17] MEDS ORDERED: CLINDAMYCIN-D5W 600 MG/50 ML*** 600 MG/50 ML BAG IV ONE (12:25)
[2022-06-17 12:30] LABS: Hematocrit 43.1 % (42-50); Hemoglobin 14.3 g/dL (12.5-18.0); Mean Cell Volume 103.9 fL (78-100); Mean Corpuscular Hemoglobin 34.5 pg (26-32); Mean Corpuscular Hgb Concent. 33.2 g/dL (32-36); Platelet Count 73 x10^3/uL (150-450); Red Blood Count 4.15 x10^6/uL (4.1-5.6); White Blood Count 6.2 x10^3/uL (4.0-10.5)
[2022-06-17] MEDS ORDERED: Sodium Chloride 0.9% 500 ML 500 ML IV ONE ×2 (12:45→13:04)
[2022-06-17 13:04] LABS: ALBUMIN 4.3 g/dL (3.5-5.0); ALKALINE PHOSPHATASE 108 U/L (38-126); ANION GAP 14.8 MEQ/L (5-15); BLOOD UREA NITROGEN 16 mg/dL (9-20); CHLORIDE 104 mmol/L (98-107); Calcium 10.1 mg/dL (8.4-10.2); Carbon Dioxide 27 mmol/L (22-30); Creatinine 1 0.49 mg/dL (0.66-1.25); EST GLOMERULAR FILTRATION RATE > 60.0 ML/MIN; Glucose 112 mg/dL (74-106); Potassium 4.1 mmol/L (3.5-5.1); SGOT/AST 35 U/L (17-59); SGPT/ALT 29 U/L (0-50); SODIUM 142 mmol/L (137-145)
[2022-06-17 13:14] LABS: Appearance CLEAR (CLEAR); Bilirubin NEGATIVE (NEGATIVE); Dipstick done @ ? MAIN LAB; Glucose NEGATIVE (NEGATIVE); Nitrite NEGATIVE (NEGATIVE); Protein,Urine Dip NEGATIVE (Negative); RBC NEGATIVE Ery/ul (0-5); Urobilinogen 0.2 mg/dL (0-1)
[2022-06-17 13:21] LABS: MAGNESIUM 1.2 mg/dL (1.6-2.3)
[2022-06-17] MEDS ORDERED: Magnesium 1 Gm / 100 Ml D5W*** 100 ML IV ONE ×2 (13:24→14:03)
[2022-06-17] MEDS: Magnesium 1 Gm / 100 Ml D5W*** 100 ML IV SCH ×2 (13:26→14:04)
[2022-06-17 13:45] LABS: Mucus SLIGHT /HPF (NEGATIVE)
[2022-06-17] MEDS ORDERED: DUONEB 0.5-3 MG/3 ml Neb IH ONE ×2 (14:13→14:25)
[2022-06-17] MEDS ORDERED: solu-MEDROL 125 MG, Sterile H2O 10 ml 2 ML IV ONE ×2 (14:13)
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
[2022-06-17] MEDS ORDERED: solu-MEDROL ONE (14:34)
[2022-06-17] MEDS ORDERED: Sterile H2O 10 ml IJ ONE (14:34)
[2022-06-17 14:42] LABS: Ketones NEGATIVE (NEGATIVE)
[2022-06-17 14:46] LABS: Urine Cultured Indicated? NO
[2022-06-17 14:52] LABS: INFLUENZA A NEGATIVE (NEGATIVE); INFLUENZA B NEGATIVE (NEGATIVE); RESPIRATORY SYNCTIAL VIRUS NEGATIVE (Negative); SARS-CoV-2 Xpert Express NEGATIVE (NEGATIVE)
[2022-06-17] MEDS: Sodium Chloride 0.9% 1000 ML 1,000 ML IV SCH (15:26)
[2022-06-17] MEDS ORDERED: ACETAMINOPHEN 160 MG/5 ML PO PRN (15:50)
[2022-06-17] MEDS ORDERED: Motrin PO PRN (15:50)
[2022-06-17] MEDS ORDERED: TIZANIDINE HCL 2 MG G-TUBE PRN (15:50)
[2022-06-17] MEDS ORDERED: TYLENOL SUSPENSION 160 MG/5 ML PO PRN (15:54)
[2022-06-17] MEDS ORDERED: Bactroban OINTMENT TP SCH (16:00)
[2022-06-17] MEDS ORDERED: PATIENT OWN MEDICATION IJ SCH (16:00)
[2022-06-17] MEDS: PROTONIX 40 MG IV IV SCH (16:25)
[2022-06-17 18:25] LABS: ANISOCYTOSIS 1+; Eosinophil 1 % (0.00-3.0); Lymphocytes 9 % (24-44); Monocyte 7 % (0.0-12.0); Platelet Estimate DECREASED (NORMAL); Total Cells Counted 100
--- NOTE | 2022-06-17 18:40 | XRAY ---
Indication: Aspiration. Comparison: May 24, 2022 Portable chest unchanged again demonstrating bibasilar infiltrates/atelectasis/effusions, minimally worsened on the right. Heart not enlarged. Again chronic right hemidiaphragm elevation, levoscoliosis, epidural catheter, and [employer] shunt catheter. Comment: Preliminary interpretation made by [facility]. No critical discrepancy.
[2022-06-17] MEDS: DUONEB 0.5-3 MG/3 ml Neb IH SCH (18:51)
[2022-06-17] MEDS: CLINDAMYCIN-D5W 600 MG/50 ML*** 600 MG/50 ML BAG IV SCH (21:02)
[2022-06-17] MEDS: KEPPRA PEG SCH (21:02)
[2022-06-17] MEDS: Merrem 1 GM in Sodium Chloride 100ML MINI-BAG PLUS 100 ML IV SCH (21:55)
[2022-06-17] MEDS: Depakene 250 MG/5 ML Syrup G-TUBE SCH (21:55)
[2022-06-17] MEDS ORDERED: [UNRECOGNIZED DRUG - OTHER] PEG SCH (22:00)
[2022-06-17] MEDS ORDERED: LEVETIRACETAM 500 MG/5 ML PEG SCH (22:00)
[2022-06-17] MEDS ORDERED: VALPROIC ACID 250 MG G-TUBE SCH (22:00)
[2022-06-17] MEDS: Zanaflex 4 MG G-TUBE PRN (22:10)
[2022-06-18] MEDS: DUONEB 0.5-3 MG/3 ml Neb IH SCH ×4 (00:15→19:40)
[2022-06-18] MEDS: Sodium Chloride 0.9% 1000 ML 1,000 ML IV SCH (01:38)
[2022-06-18 04:58] LABS: Hematocrit 34.3 % (42-50); Mean Cell Volume 106.2 fL (78-100); Mean Corpuscular Hemoglobin 34.1 pg (26-32); Mean Corpuscular Hgb Concent. 32.1 g/dL (32-36); Mean Platelet Volume 13.5 fL (7.5-11.0); Platelet Count 81 x10^3/uL (150-450); Red Blood Count 3.23 x10^6/uL (4.1-5.6); Red Cell Distribution Width 16.5 % (11.5-14.0); White Blood Count 23.2 x10^3/uL (4.0-10.5)
[2022-06-18] MEDS: Merrem 1 GM in Sodium Chloride 100ML MINI-BAG PLUS 100 ML IV SCH ×3 (05:06→21:59)
[2022-06-18 05:42] LABS: ALBUMIN 3.3 g/dL (3.5-5.0); ALKALINE PHOSPHATASE 95 U/L (38-126); ANION GAP 10.9 MEQ/L (5-15); BLOOD UREA NITROGEN 16 mg/dL (9-20); CHLORIDE 109 mmol/L (98-107); Calcium 8.8 mg/dL (8.4-10.2); Carbon Dioxide 26 mmol/L (22-30); Creatinine 1 0.28 mg/dL (0.66-1.25); EST GLOMERULAR FILTRATION RATE > 60.0 ML/MIN; Glucose 109 mg/dL (74-106); Potassium 4.9 mmol/L (3.5-5.1); SGOT/AST 28 U/L (17-59); SGPT/ALT 21 U/L (0-50); SODIUM 141 mmol/L (137-145)
[2022-06-18] MEDS: CLINDAMYCIN-D5W 600 MG/50 ML*** 600 MG/50 ML BAG IV SCH ×3 (05:58→21:59)
[2022-06-18 08:03] LABS: ANISOCYTOSIS 1+; BAND 10 % (0.0-2.0); Lymphocytes 11 % (24-44); Macrocytosis 1+; Monocyte 1 % (0.0-12.0); Platelet Estimate DECREASED (NORMAL); Total Cells Counted 100; Toxic Granulation 1+
[2022-06-18] MEDS ORDERED: [UNRECOGNIZED DRUG - OTHER] G-TUBE SCH (10:00)
[2022-06-18] MEDS ORDERED: MULTIVIT MIN G-TUBE SCH (10:00)
[2022-06-18] MEDS ORDERED: BACLOFEN INTRATHEC SCH (10:00)
[2022-06-18] MEDS ORDERED: FERROUS FUMARATE G-TUBE SCH (10:00)
[2022-06-18] MEDS ORDERED: VALPROIC ACID 250 MG G-TUBE SCH (10:00)
[2022-06-18] MEDS: Depakene 250 MG/5 ML Syrup G-TUBE SCH ×2 (10:22→22:00)
[2022-06-18] MEDS: KEPPRA PEG SCH ×2 (10:22→21:54)
[2022-06-18] MEDS: MULTIVITAMIN LIQUID G-TUBE SCH (10:22)
[2022-06-18] MEDS: PROTONIX 40 MG IV IV SCH (10:22)
--- NOTE | 2022-06-18 13:13 | PCM.HP ---
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 [Sodium Chloride 0.9% 1000 ML] 1,000 Med 06/17/22 12:14 Discontinued ml IV 999 mls/hr NaCl 0.9% 1000 ml [Sodium Chloride 0.9% 1000 ML] 1,000 Med 06/17/22 12:45 Discontinued ml IV 999 mls/hr NaCl 0.9% 500 ml [Sodium Chloride 0.9% 500 ML] 500 ml Med 06/17/22 12:45 Discontinued IV 500 mls/hr NaCl 0.9% 500 ml [Sodium Chloride 0.9% 500 ML] 500 ml Med 06/17/22 13:04 Discontinued IV UD Pantoprazole 40 mg [Protonix 40 mg IV] Med 06/17/22 16:00 Active 40 mg IV Q24H10 Patient Own Med [Patient Own Medication] Med 06/17/22 16:00 Active See Dose Instructions IJ UD Tizanidine HCl 4 mg [Zanaflex 4 MG] Med 06/17/22 15:56 Active See Dose Instructions G-TUBE DAILY PRN PRN Valproic Acid 250 mg/5 ml [Depakene 250 MG/5 ML Med 06/18/22 10:00 Active Syrup] 250 mg G-TUBE QAM Valproic Acid 250 mg/5 ml [Depakene 250 MG/5 ML Med 06/17/22 22:00 Active Syrup] 500 mg G-TUBE HS Water For Injection,Sterile [Sterile H2O 10 ml] Med 06/17/22 14:34 Discontinued 10 ml IJ .STK-MED ONE Oxygen Venti-Mask 28% RT 06/17/22 15:52 Active Pulse Oximetry .continuos RT 06/17/22 15:51 Active Respiratory Therapy Assessment DAILY RT 06/17/22 14:41 Completed Respiratory Therapy Assessment DAILY RT 06/17/22 15:51 Active Patient Care Notes (Last 24 hours) 06/18/22 09:00 (created 06/18/22 10:18) Nursing Note by Rosalina Ramesh pt's mom states that at home pt takes jevity 1.5cal 8fl oz at 0900,1300,2100. pt is flushed with 60cc water after each jevity. mother also states that when in the hospital jevity 1.2cal is always used. dr. louise orders to do jevity 1.2cal 8fl oz at 0900, 1300, and 2100 and flush with 60cc of water after each jevity Initialized on 06/18/22 10:18 - END OF NOTE 06/17/22 17:56 Respiratory Note by Melania Vivas FIO2 INC TO 35% VENTI MASK, 8LPM Initialized on 06/17/22 17:56 - END OF NOTE 06/17/22 17:54 Respiratory Note by Melania Vivas 1740 NT SX WITH 14 FR CATH. PRE AND RE-OXYGENATE. MOD AMT THICK CLEAR SPUTUM, NO COMPLICATIONS . Initialized on 06/17/22 17:54 - END OF NOTE 06/17/22 16:37 Nursing Note by Kiley Burciaga O2 SATS DIPPING IN THE 80S. INCREASED FIO2 TO 35% (8L) VENTI MASK. Initialized on 06/17/22 16:37 - END OF NOTE 06/17/22 16:06 Pharmacy Note by Alonso Figueredo 9-5: PLEASE BE AWARE OF POSSIBLE DRUG INTERACTION WITH MERREM AND VALPROIC ACID. MERREM MAY DECREASE VALPROIC ACID LEVELS. Initialized on 06/17/22 16:06 - END OF NOTE 06/17/22 15:38 Nursing Note by Kiley Burciaga TUBE FEEDINGS AT HOME PER PARENTS ARE JEVITY 1.5 250CC @ 0900, 1500 AND 2100. Initialized on 06/17/22 15:38 - END OF NOTE Code(s): J96.01 - ACUTE RESPIRATORY FAILURE WITH HYPOXIA (2) Bilateral pneumonia Current Visit: Yes Status: Acute Qualifiers: Pneumonia type: aspiration pneumonia Lung location: lower lobe of lung Assessment & Plan: Last Vital Signs Temp 96.3 F 06/18/22 12:00 Pulse 93 H 06/18/22 12:00 Resp 20 06/18/22 12:00 BP 130/64 06/18/22 12:00 Pulse Ox 92 L 06/18/22 12:00 Allergies amoxicillin [Amoxicillin] Allergy (Severe, Verified 06/17/22 11:47) Rash Bleach (Sodium Hypochlorite) Allergy (Severe, Verified 06/17/22 11:47) Rash latex Allergy (Severe, Verified 06/17/22 11:47) Rash furosemide [From Lasix] Allergy (Verified 06/17/22 11:47) levofloxacin [From Levaquin] Allergy (Verified 06/17/22 11:47) Active Medications Acetaminophen (Acetaminophen 160 Mg/5 Ml Bottle) 800 mg PO Q4HPRN PRN PRN Reason: PAIN AND/OR FEVER Stop: 07/17/22 15:53 Albuterol/Ipratropium (Ipratropium/Albuterol Sulfate 3 Ml Ampul.Neb) 3 ml IH Q6HRT JESSICA Stop: 07/17/22 18:59 Last Admin: 06/18/22 07:52 Dose: 3 ml Clindamycin HCl/Dextrose (Clindamycin-D5w 600 Mg/50 Ml) 600 mg in 50 mls @ 100 mls/hr IV Q8HT JESSICA Stop: 07/17/22 21:59 Last Admin: 06/18/22 05:58 Dose: 100 mls/hr Meropenem 1 gm/ Sodium (Chloride) 100 mls @ 200 mls/hr IV Q8HT JESSICA Stop: 06/20/22 21:59 Last Admin: 06/18/22 05:06 Dose: 200 mls/hr Ibuprofen (Ibuprofen 100 Mg/5 Ml Oral.Susp) 500 mg PO Q6HPRN PRN PRN Reason: PAIN AND/OR FEVER Stop: 07/17/22 15:49 Levetiracetam (Levetiracetam 500 Mg Tablet) 500 mg PEG BID EJSSICA Stop: 07/17/22 21:59 Last Admin: 06/18/22 10:22 Dose: 500 mg Multivitamins (Multivitamin Liquid 1 Ml) 15 ml G-TUBE DAILY JESSICA Stop: 07/18/22 09:59 Last Admin: 06/18/22 10:22 Dose: 15 ml Mupirocin (Mupirocin 22 Gm Tube Ointment) 0 gm TP UD JESSICA Stop: 07/17/22 15:59 Pantoprazole Sodium (Pantoprazole 40 Mg Vial) 40 mg IV Q24H10 JESSICA Stop: 07/17/22 15:59 Last Admin: 06/18/22 10:22 Dose: 40 mg Baclofen Pump 0 each IJ UD JESSICA Stop: 07/17/22 15:59 Tizanidine HCl (Tizanidine Hcl 4 Mg Tablet) 0 mg G-TUBE DAILY PRN PRN PRN Reason: MUSCLE SPASMS Stop: 07/17/22 15:55 Last Admin: 06/17/22 22:10 Dose: 4 mg Valproate Sodium (Valproic Acid 250 Mg/5 Ml Oral Solution) 250 mg G-TUBE QAM JESSICA Stop: 07/18/22 09:59 Last Admin: 06/18/22 10:22 Dose: 250 mg Valproate Sodium (Valproic Acid 250 Mg/5 Ml Oral Solution) 500 mg G-TUBE HS [facility] Stop: 07/17/22 21:59 Last Admin: 06/17/22 21:55 Dose: 500 mg Intake & Output 06/18/22 06/19/22 11:59 11:59 Intake Total 1437 Output Total 1350 Balance 87 Weight 73.4 kg Orders 06/17/22 15:50 Ibuprofen [Motrin] 500 mg PO Q6HPRN PRN 06/17/22 15:51 Pulse Oximetry .continuos Respiratory Therapy Assessment DAILY 06/17/22 15:52 Oxygen Venti-Mask 28% 06/17/22 15:54 Acetaminophen Susp [Tylenol Suspension 160 mg/5 ml] 800 mg PO Q4HPRN PRN 06/17/22 15:56 Tizanidine HCl 4 mg [Zanaflex 4 MG] See Dose Instructions G-TUBE DAILY PRN PRN 06/17/22 16:00 Mupirocin [Bactroban OINTMENT] See Dose Instructions TP UD Patient Own Med [Patient Own Medication] See Dose Instructions IJ UD 06/17/22 17:52 Suction airway PRN 06/17/22 19:00 Suction airway PRN 06/17/22 22:00 Levetiracetam [Keppra] 500 mg PEG BID Valproic Acid 250 mg/5 ml [Depakene 250 MG/5 ML Syrup] 500 mg G-TUBE HS 06/18/22 00:49 NPO 06/18/22 10:00 Multivitamin Liquid 15 ml G-TUBE DAILY Valproic Acid 250 mg/5 ml [Depakene 250 MG/5 ML Syrup] 250 mg G-TUBE QAM 06/19/22 04:00 CBC W DIFF AM.LAB CMP AM.LAB 06/19/22 06:00 CHEST 1 VIEW (PORTABLE) DAILY 06/19/22 Breakfast Jevity Lab Tests 06/17/22 06/17/22 06/17/22 12:15 12:20 12:55 WBC RBC Hgb Hct MCV MCH MCHC RDW Plt Count MPV Segmented Neutrophils 83 H Band Neutrophils Lymphocytes (Manual) 9 L Monocytes (Manual) 7 Eosinophils (Manual) 1 Toxic Granulation Platelet Estimate DECREASED RBC Morphology ABNORMAL Anisocytosis 1+ Macrocytosis Sodium Potassium Chloride Carbon Dioxide Anion Gap BUN Creatinine Estimated GFR Glucose Lactic Acid Calcium Magnesium 1.2 L Total Bilirubin AST ALT Alkaline Phosphatase Serum Total Protein Albumin Prealbumin Procalcitonin Urinalys Dipstick Clnc MAIN LAB Urine Color SOFIE Urine Appearance CLEAR Urine pH 7.0 Ur Specific [place] 1.020 POC Urine Protein Conf NEGATIVE Urine Ketones NEGATIVE Urine Nitrite NEGATIVE Urine Bilirubin NEGATIVE Urine Urobilinogen 0.2 Urine Leukocytes NEGATIVE Urine WBC (Auto) NONE Urine RBC (Auto) NONE U Epithel Cells (Auto) NONE Urine Bacteria (Auto) NONE Urine RBC NEGATIVE Urine Mucus (Auto) SLIGHT Ur Culture Indicated? NO Urine Glucose NEGATIVE Influenza Type A Ag Influenza Type B Ag RSV (PCR) SARS-CoV-2 (PCR) 06/17/22 06/17/22 06/18/22 12:58 14:39 04:53 WBC 23.2 H RBC 3.23 L Hgb 11.0 L D Hct 34.3 L MCV 106.2 H MCH 34.1 H MCHC 32.1 RDW 16.5 H Plt Count 81 L MPV 13.5 H Segmented Neutrophils 78 H Band Neutrophils 10 H Lymphocytes (Manual) 11 L Monocytes (Manual) 1 Eosinophils (Manual) Toxic Granulation 1+ Platelet Estimate DECREASED RBC Morphology ABNORMAL Anisocytosis 1+ Macrocytosis 1+ Sodium Potassium Chloride Carbon Dioxide Anion Gap BUN Creatinine Estimated GFR Glucose Lactic Acid 2.7 H Calcium Magnesium Total Bilirubin AST ALT Alkaline Phosphatase Serum Total Protein Albumin Prealbumin Procalcitonin Urinalys Dipstick Clnc Urine Color Urine Appearance Urine pH Ur Specific [place] POC Urine Protein Conf Urine Ketones Urine Nitrite Urine Bilirubin Urine Urobilinogen Urine Leukocytes Urine WBC (Auto) Urine RBC (Auto) U Epithel Cells (Auto) Urine Bacteria (Auto) Urine RBC Urine Mucus (Auto) Ur Culture Indicated? Urine Glucose Influenza Type A Ag NEGATIVE Influenza Type B Ag NEGATIVE RSV (PCR) NEGATIVE SARS-CoV-2 (PCR) NEGATIVE 06/18/22 06/18/22 04:53 04:53 WBC RBC Hgb Hct MCV MCH MCHC RDW Plt Count MPV Segmented Neutrophils Band Neutrophils Lymphocytes (Manual) Monocytes (Manual) Eosinophils (Manual) Toxic Granulation Platelet Estimate RBC Morphology Anisocytosis Macrocytosis Sodium 141 Potassium 4.9 Chloride 109 H Carbon Dioxide 26 Anion Gap 10.9 BUN 16 Creatinine 0.28 L Estimated GFR > 60.0 Glucose 109 H Lactic Acid 2.0 Calcium 8.8 Magnesium Total Bilirubin 0.90 AST 28 ALT 21 Alkaline Phosphatase 95 Serum Total Protein 6.0 L Albumin 3.3 L Prealbumin 26.20 Procalcitonin Urinalys Dipstick Clnc Urine Color Urine Appearance Urine pH Ur Specific [place] POC Urine Protein Conf Urine Ketones Urine Nitrite Urine Bilirubin Urine Urobilinogen Urine Leukocytes Urine WBC (Auto) Urine RBC (Auto) U Epithel Cells (Auto) Urine Bacteria (Auto) Urine RBC Urine Mucus (Auto) Ur Culture Indicated? Urine Glucose Influenza Type A Ag Influenza Type B Ag RSV (PCR) SARS-CoV-2 (PCR) Microbiology 06/17/22 12:55 Urine, Void Urine Culture - Preliminary NO GROWTH TO DATE Code(s): J18.9 - PNEUMONIA, UNSPECIFIED ORGANISM
[2022-06-18] MEDS: Zanaflex 4 MG G-TUBE PRN (13:34)
[2022-06-18] MEDS: NEBCIN INJ IH SCH (19:10)
[2022-06-18] MEDS: Mucomyst 200 MG/ML IH SCH (19:40)
[2022-06-18] MEDS ORDERED: TROUGH DRUG LEVELS IJ ONE (20:00)
[2022-06-19] MEDS: DUONEB 0.5-3 MG/3 ml Neb IH SCH ×3 (01:18→12:54)
[2022-06-19 05:12] LABS: Absolute Neutrophil Ct (ANC) 10.34 x10^3/uL (1.4-6.9); Basophil (Absolute #) 0.03 x10^3/uL (0-0.4); Eosinophil % 0.4 % (0.00-5.0); Eosinophil (Absolute #) 0.05 x10^3/uL (0-0.5); Hematocrit 30.4 % (42-50); Hemoglobin 9.7 g/dL (12.5-18.0); Lymphocyte (Absolute #) 1.83 x10^3/uL (1.0-4.6); Lymphocytes % 14.3 % (24.0-44.0); Mean Cell Volume 106.3 fL (78-100); Mean Corpuscular Hemoglobin 33.9 pg (26-32); Mean Corpuscular Hgb Concent. 31.9 g/dL (32-36); Mean Platelet Volume 12.8 fL (7.5-11.0); Monocyte (Absolute #) 0.51 x10^3/uL (0.0-1.3); Neutrophil % 80.6 % (36.0-66.0); Platelet Count 74 x10^3/uL (150-450); Red Blood Count 2.86 x10^6/uL (4.1-5.6); Red Cell Distribution Width 16.9 % (11.5-14.0); White Blood Count 12.8 x10^3/uL (4.0-10.5)
[2022-06-19 05:37] LABS: ALBUMIN 3.2 g/dL (3.5-5.0); ALKALINE PHOSPHATASE 94 U/L (38-126); BLOOD UREA NITROGEN 18 mg/dL (9-20); CHLORIDE 107 mmol/L (98-107); Calcium 8.7 mg/dL (8.4-10.2); Carbon Dioxide 30 mmol/L (22-30); Creatinine 1 0.26 mg/dL (0.66-1.25); EST GLOMERULAR FILTRATION RATE > 60.0 ML/MIN; Glucose 71 mg/dL (74-106); Potassium 3.7 mmol/L (3.5-5.1); SGOT/AST 23 U/L (17-59); SGPT/ALT 19 U/L (0-50); SODIUM 141 mmol/L (137-145); Total Protein 6.3 g/dL (6.3-8.2)
[2022-06-19] MEDS: Merrem 1 GM in Sodium Chloride 100ML MINI-BAG PLUS 100 ML IV SCH ×2 (06:08→14:08)
[2022-06-19 06:34] LABS: Slide Review 1 YES
[2022-06-19] MEDS: CLINDAMYCIN-D5W 600 MG/50 ML*** 600 MG/50 ML BAG IV SCH ×2 (06:35→14:50)
[2022-06-19] MEDS: Mucomyst 200 MG/ML IH SCH ×2 (06:52→12:54)
[2022-06-19] MEDS: NEBCIN INJ IH SCH (06:52)
[2022-06-19 07:52] VITALS: BP 127/76
--- NOTE | 2022-06-19 09:02 | XRAY ---
Indication: Pneumonia. Comparison: June 17, 2022 Portable chest grossly unchanged again demonstrating bibasilar infiltrates/atelectasis/effusions, right greater than left. Heart not enlarged. Again chronic right hemidiaphragm elevation, levorotoscoliosis, epidural catheter, and OUTPATIENT DIETITIAN shunt catheter. No new cardiopulmonary abnormalities.
[2022-06-19] MEDS: PROTONIX 40 MG IV IV SCH (09:03)
[2022-06-19] MEDS: KEPPRA PEG SCH (09:03)
[2022-06-19] MEDS: MULTIVITAMIN LIQUID G-TUBE SCH (09:03)
[2022-06-19] MEDS: Depakene 250 MG/5 ML Syrup G-TUBE SCH (10:39)
[2022-06-19 13:06] VITALS: PULSE 64
--- NOTE | 2022-06-19 20:34 | PCM.DS ---
Discharge Summary Date of Admission: 06/17/22 16:37 Admitting Physician: WELLINGTON RAMIREZ Primary Care Provider: SSOA BRICEÑO Allergies Allergies amoxicillin [Amoxicillin] Allergy (Severe, Verified 06/17/22 11:47) Rash Bleach (Sodium Hypochlorite) Allergy (Severe, Verified 06/17/22 11:47) Rash latex Allergy (Severe, Verified 06/17/22 11:47) Rash furosemide [From Lasix] Allergy (Verified 06/17/22 11:47) levofloxacin [From Levaquin] Allergy (Verified 06/17/22 11:47) Hospital Summary - Hospital Course Hospital Course: Chief Complaint Diagnosis MYRIAM PNEUMONIA Allergies Allergy/AdvReac Type Severity Reaction Status Date / Time amoxicillin [Amoxicillin] Allergy Severe Rash Verified 06/17/22 11:47 Bleach (Sodium Hypochlorite) Allergy Severe Rash Verified 06/17/22 11:47 latex Allergy Severe Rash Verified 06/17/22 11:47 furosemide [From Lasix] Allergy Verified 06/17/22 11:47 levofloxacin [From Levaquin] Allergy Verified 06/17/22 11:47 Vital Signs (Last 24 hours) Temp Pulse Resp BP Pulse Ox 06/19/22 12:55 64 10 L 92 L 06/19/22 11:57 97.6 F 72 16 127/76 93 L 06/19/22 07:51 96.9 F 75 16 127/76 100 06/19/22 07:01 61 12 96 06/19/22 04:00 96.9 F 72 15 121/51 93 L 06/19/22 01:18 71 16 91 L 06/18/22 23:48 98.5 F 70 17 123/68 93 L Home Medications Medication Instructions Recorded Confirmed Last Taken Type clindamycin HCL [Clindamycin HCl] 600 mg PEG QID #40 cap 06/19/22 Unknown Rx Current Medications Discontinued Medications Generic Name Dose Route Start Last Admin Trade Name Freq PRN Reason Stop Dose Admin Acetaminophen 800 mg 06/17/22 15:54 Acetaminophen 160 Mg/5 Ml Bottle PO 07/17/22 15:53 Q4HPRN PRN PAIN AND/OR FEVER Acetylcysteine 800 mg 06/18/22 19:00 06/19/22 12:54 Acetylcysteine 200 Mg/Ml 30 Ml Vial IH 07/18/22 18:59 800 mg TIDRT JESSICA Administration Albuterol/Ipratropium 3 ml 06/17/22 14:13 06/17/22 14:40 Ipratropium/Albuterol Sulfate 3 Ml Ampul.Neb IH 06/17/22 14:14 3 ml STAT ONE Administration Albuterol/Ipratropium Confirm 06/17/22 14:25 Ipratropium/Albuterol Sulfate 3 Ml Ampul.Neb Administered 06/17/22 14:26 Dose 3 ml IH .STK-MED ONE Albuterol/Ipratropium 3 ml 06/17/22 19:00 06/19/22 12:54 Ipratropium/Albuterol Sulfate 3 Ml Ampul.Neb 07/17/22 18:59 3 ml Q6HRT JESSICA Administration Methylprednisolone Sodium 0 mg 06/17/22 14:13 06/17/22 14:41 Succinate 125 mg/ Sterile IV 06/17/22 14:14 125 mg Water 2 ml STAT ONE Administration Device 1 06/18/22 20:00 Therapuetic Drug Level Monitor Each IJ 06/18/22 20:01 1XONLY ONE Clindamycin HCl/Dextrose 600 mg in 50 mls @ 100 mls/hr 06/17/22 12:07 06/17/22 12:59 Clindamycin-D5w 600 Mg/50 Ml IV 06/17/22 12:36 Infused STAT STA Infusion Meropenem 1 gm/ Sodium 100 mls @ 200 mls/hr 06/17/22 12:10 06/17/22 12:29 Chloride IV 06/17/22 12:39 200 mls/hr STAT ONE Administration Sodium Chloride 1,000 mls @ 999 mls/hr 06/17/22 12:14 06/17/22 13:30 Sodium Chloride 0.9% 1000 Ml IV 06/17/22 13:14 Infused .Q1H1M STA Infusion Sodium Chloride Confirm 06/17/22 12:25 Sodium Chloride 100ml Mini-Bag Plus Administered 06/17/22 12:26 Dose 100 mls @ ud IV .STK-MED ONE Sodium Chloride Confirm 06/17/22 12:25 Sodium Chloride 0.9% 1000 Ml Administered 06/17/22 12:26 Dose 1,000 mls @ ud .ROUTE .STK-MED ONE Clindamycin HCl/Dextrose Confirm 06/17/22 12:25 Clindamycin-D5w 600 Mg/50 Ml Administered 06/17/22 12:26 Dose 600 mg in 50 mls @ ud IV .STK-MED ONE Sodium Chloride 1,000 mls @ 999 mls/hr 06/17/22 12:45 06/17/22 14:32 Sodium Chloride 0.9% 1000 Ml IV 06/17/22 13:45 Infused .Q1H1M STA Infusion Sodium Chloride 500 mls @ 500 mls/hr 06/17/22 12:45 06/17/22 14:05 Sodium Chloride 0.9% 500 Ml IV 06/17/22 13:44 Infused .Q1H ONE Infusion Sodium Chloride Confirm 06/17/22 13:04 Sodium Chloride 0.9% 500 Ml Administered 06/17/22 13:05 Dose 500 mls @ ud IV .STK-MED ONE Magnesium Sulfate/Dextrose 100 mls @ 100 mls/hr 06/17/22 13:30 06/17/22 14:04 Magnesium 1 Gm / 100 Ml D5w IV 06/17/22 15:29 100 mls/hr Q1H JESSICA Administration Sodium Chloride Confirm 06/17/22 13:24 Sodium Chloride 0.9% 1000 Ml Administered 06/17/22 13:25 Dose 1,000 mls @ ud .ROUTE .STK-MED ONE Magnesium Sulfate/Dextrose Confirm 06/17/22 13:24 Magnesium 1 Gm / 100 Ml D5w Administered 06/17/22 13:25 Dose 100 mls @ ud IV .STK-MED ONE Magnesium Sulfate/Dextrose Confirm 06/17/22 14:03 Magnesium 1 Gm / 100 Ml D5w Administered 06/17/22 14:04 Dose 100 mls @ ud IV .STK-MED ONE Sodium Chloride 1,000 mls @ 100 mls/hr 06/17/22 15:12 06/18/22 01:38 Sodium Chloride 0.9% 1000 Ml IV 07/17/22 15:11 100 mls/hr .Q10H JESSICA Administration Clindamycin HCl/Dextrose 600 mg in 50 mls @ 100 mls/hr 06/17/22 22:00 06/19/22 14:50 Clindamycin-D5w 600 Mg/50 Ml IV 07/17/22 21:59 100 mls/hr Q8HT JESSICA Administration Meropenem 1 gm/ Sodium 100 mls @ 200 mls/hr 06/17/22 22:00 06/19/22 14:08 Chloride IV 06/20/22 21:59 200 mls/hr Q8HT JESSICA Administration Ibuprofen 500 mg 06/17/22 15:50 Ibuprofen 100 Mg/5 Ml Oral.Susp PO 07/17/22 15:49 Q6HPRN PRN PAIN AND/OR FEVER Levetiracetam 500 mg 06/17/22 22:00 06/19/22 09:03 Levetiracetam 500 Mg Tablet PEG 07/17/22 21:59 500 mg BID JESSICA Administration Meropenem Confirm 06/17/22 12:24 Meropenem 1 Gm Vial Administered 06/17/22 12:25 Dose 1 gm IV .STK-MED ONE Methylprednisolone Sodium Succinate Confirm 06/17/22 14:34 Methylprednis Sod Succ 125 Mg/2 Ml Vial Administered 06/17/22 14:35 Dose 125 mg .ROUTE .STK-MED ONE Multivitamins 15 ml 06/18/22 10:00 06/19/22 09:03 Multivitamin Liquid 1 Ml G-TUBE 07/18/22 09:59 15 ml DAILY JESSICA Administration Mupirocin 0 gm 06/17/22 16:00 Mupirocin 22 Gm Tube Ointment TP 07/17/22 15:59 [facility] [place]oprazole Sodium 40 mg 06/17/22 16:00 06/19/22 09:03 Pantoprazole 40 Mg Vial IV 07/17/22 15:59 40 mg Q24H10 JESSICA Administration Baclofen Pump 0 each 06/17/22 16:00 IJ 07/17/22 15:59 UD [facility] Sterile Water Confirm 06/17/22 14:34 Water For Injection,Sterile 10 Ml Vial Administered 06/17/22 14:35 Dose 10 ml IJ .STK-MED ONE Tizanidine HCl 0 mg 06/17/22 15:56 06/18/22 13:34 Tizanidine Hcl 4 Mg Tablet G-TUBE 07/17/22 15:55 4 mg DAILY PRN PRN Administration MUSCLE SPASMS Tobramycin Sulfate 300 mg 06/18/22 19:00 06/19/22 06:52 Tobramycin Sulfate 80mg/2ml Vial IH 07/18/22 18:59 300 mg BIDRT JESSICA Administration Valproate Sodium 250 mg 06/18/22 10:00 06/19/22 10:39 Valproic Acid 250 Mg/5 Ml Oral Solution G-TUBE 07/18/22 09:59 250 mg QAM JESSICA Administration Valproate Sodium 500 mg 06/17/22 22:00 06/18/22 22:00 Valproic Acid 250 Mg/5 Ml Oral Solution G-TUBE 07/17/22 21:59 500 mg HS JESSICA Administration Intake & Output (Last 24 hours) 06/17/22 06/18/22 06/19/22 06/20/22 11:59 11:59 11:59 11:59 Intake Total 1437 939 0 Output Total 1500 1350 1200 Balance -1500 87 -261 0 Weight 85.275 kg 73.4 kg 73.4 kg Microbiology Results (Last 24 hours) 06/17/22 12:55 Urine, Void Urine Culture - Final NO GROWTH 06/17/22 12:23 Blood Blood Culture Gram Stain - Final Not Reportable 06/17/22 12:23 Blood Blood Culture - Preliminary NO GROWTH TO DATE 06/17/22 12:20 Blood Blood Culture Gram Stain - Final Not Reportable 06/17/22 12:20 Blood Blood Culture - Preliminary NO GROWTH TO DATE Laboratory Results (Last 24 hours) 06/19/22 06/19/22 05:08 05:08 WBC 12.8 H RBC 2.86 L Hgb 9.7 L Hct 30.4 L MCV 106.3 H MCH 33.9 H MCHC 31.9 L RDW 16.9 H Plt Count 74 L MPV 12.8 H Gran % 80.6 H Immature Gran % (Auto) 0.5 H Nucleat RBC Rel Count 0.0 Eos # (Auto) 0.05 Immature Gran # (Auto) 0.07 H Absolute Lymphs (auto) 1.83 Absolute Monos (auto) 0.51 Absolute Nucleated RBC 0.00 Lymphocytes % 14.3 L Monocytes % 4.0 Eosinophils % 0.4 Basophils % 0.2 Absolute Granulocytes 10.34 H Basophils # 0.03 Sodium 141 Potassium 3.7 D Chloride 107 Carbon Dioxide 30 Anion Gap 8.0 BUN 18 Creatinine 0.26 L Estimated GFR > 60.0 Glucose 71 L Calcium 8.7 Total Bilirubin 0.80 AST 23 ALT 19 Alkaline Phosphatase 94 Serum Total Protein 6.3 Albumin 3.2 L Slides for Path Review YES Orders (Last 24 hours) Category Date Time Status Jevity Diet 06/19/22 Breakfast Completed Discharge Routine Discharge 06/19/22 Ordered CHEST 1 VIEW (PORTABLE) DAILY Exams 06/19/22 08:40 Completed CBC W DIFF AM.LAB Lab 06/19/22 05:08 Completed CMP AM.LAB Lab 06/19/22 05:08 Completed Therapuetic Drug Level Monitor [Trough Drug Levels] Med 06/18/22 20:00 Discontinued 1 IJ 1XONLY ONE Patient Care Notes (Last 24 hours) 06/19/22 12:57 Case Management Note by Joann Sanderson S/W MOTHER- SHE CONTINUES TO DENY ANY NEW NEEDS AT TIME OF DC. SHE PLANS FOR PATIENT TO RETURN HOME TO HER CARE Initialized on 06/19/22 12:57 - END OF NOTE - Vitals & Intake/Output Vital Signs: Vital Signs Temperature 97.6 F 06/19/22 11:57 Pulse Rate 64 06/19/22 12:55 Respiratory Rate 10 L 06/19/22 12:55 Blood Pressure 127/76 06/19/22 11:57 O2 Sat by Pulse Oximetry 92 L 06/19/22 12:55 Intake & Output: Intake & Output 06/17/22 06/18/22 06/19/22 06/20/22 11:59 11:59 11:59 11:59 Intake Total 1437 939 0 Output Total 1500 1350 1200 Balance -1500 87 -261 0 Weight 85.275 kg 73.4 kg 73.4 kg - Lab Result Diagrams: 06/19/22 05:08 06/19/22 05:08 Lab Results-Last 24 Hrs: Lab Results-Last 24 Hours 06/19/22 06/19/22 Range/Units 05:08 05:08 WBC 12.8 H (4.0-10.5) x10^3/uL RBC 2.86 L (4.1-5.6) x10^6/uL Hgb 9.7 L (12.5-18.0) g/dL Hct 30.4 L (42-50) % MCV 106.3 H (78-100) fL MCH 33.9 H (26-32) pg MCHC 31.9 L (32-36) g/dL RDW 16.9 H (11.5-14.0) % Plt Count 74 L (150-450) x10^3/uL MPV 12.8 H (7.5-11.0) fL Gran % 80.6 H (36.0-66.0) % Immature Gran % (Auto) 0.5 H (0.00-0.4) % Nucleat RBC Rel Count 0.0 (0.00-0.1) % Eos # (Auto) 0.05 (0-0.5) x10^3/uL Immature Gran # (Auto) 0.07 H (0.00-0.03) x10^3u/L Absolute Lymphs (auto) 1.83 (1.0-4.6) x10^3/uL Absolute Monos (auto) 0.51 (0.0-1.3) x10^3/uL Absolute Nucleated RBC 0.00 (0.00-0.01) x10^3u/L Lymphocytes % 14.3 L (24.0-44.0) % Monocytes % 4.0 (0.0-12.0) % Eosinophils % 0.4 (0.00-5.0) % Basophils % 0.2 (0.0-0.4) % Absolute Granulocytes 10.34 H (1.4-6.9) x10^3/uL Basophils # 0.03 (0-0.4) x10^3/uL Sodium 141 (137-145) mmol/L Potassium 3.7 D (3.5-5.1) mmol/L Chloride 107 (98-107) mmol/L Carbon Dioxide 30 (22-30) mmol/L Anion Gap 8.0 (5-15) MEQ/L BUN 18 (9-20) mg/dL Creatinine 0.26 L (0.66-1.25) mg/dL Estimated GFR > 60.0 ML/MIN Glucose 71 L (74-106) mg/dL Calcium 8.7 (8.4-10.2) mg/dL Total Bilirubin 0.80 (0.2-1.3) mg/dL AST 23 (17-59) U/L ALT 19 (0-50) U/L Alkaline Phosphatase 94 (38-126) U/L Serum Total Protein 6.3 (6.3-8.2) g/dL Albumin 3.2 L (3.5-5.0) g/dL Slides for Path Review YES Micro Results-Entire Visit: Microbiology 06/17/22 12:55 Urine Culture - Final Urine, Void NO GROWTH 06/17/22 12:23 Blood Culture Gram Stain - Final Blood Not Reportable Blood Culture - Preliminary NO GROWTH TO DATE 06/17/22 12:20 Blood Culture Gram Stain - Final Blood Not Reportable Blood Culture - Preliminary NO GROWTH TO DATE - Radiology Exams Ordered Rad Exams-Entire Visit: Radiology Procedures Category Date Time Status CHEST 1 VIEW (PORTABLE) DAILY Exams 06/19/22 08:40 Completed - Procedures and Test Procedures and Tests throughout Hospitalization: Therapy Orders & Screens 06/17/22 14:41 Respiratory Therapy Assessment DAILY Comment: 06/17/22 15:51 Respiratory Therapy Assessment DAILY Comment: Diagnosis: Pneumonia 06/17/22 15:52 Oxygen Venti-Mask 28% Comment: Diagnosis: Pneumonia Discharge Exam Neurologic Exam: motor deficits, disoriented Eye Exam: EOM palsy/anisocoria Ears, Nose, Throat Exam: normal ENT inspection Neck Exam: supple Respiratory Exam: diminished breath sounds, crackles/rales, wheezing Cardiovascular Exam: tachycardia Gastrointestinal/Abdomen Exam: soft Skin Exam: normal color Final Diagnosis/Problem List - Final Discharge Diagnosis/Problem (1) Acute respiratory failure with hypoxia Status: Resolved Code(s): J96.01 - ACUTE RESPIRATORY FAILURE WITH HYPOXIA (2) Bilateral pneumonia Status: Acute Assessment & Plan: Chief Complaint Diagnosis MYRIAM PNEUMONIA Allergies Allergy/AdvReac Type Severity Reaction Status Date / Time amoxicillin [Amoxicillin] Allergy Severe Rash Verified 06/17/22 11:47 Bleach (Sodium Hypochlorite) Allergy Severe Rash Verified 06/17/22 11:47 latex Allergy Severe Rash Verified 06/17/22 11:47 furosemide [From Lasix] Allergy Verified 06/17/22 11:47 levofloxacin [From Levaquin] Allergy Verified 06/17/22 11:47 Vital Signs (Last 24 hours) Temp Pulse Resp BP Pulse Ox 06/19/22 12:55 64 10 L 92 L 06/19/22 11:57 97.6 F 72 16 127/76 93 L 06/19/22 07:51 96.9 F 75 16 127/76 100 06/19/22 07:01 61 12 96 06/19/22 04:00 96.9 F 72 15 121/51 93 L 06/19/22 01:18 71 16 91 L 06/18/22 23:48 98.5 F 70 17 123/68 93 L Home Medications Medication Instructions Recorded Confirmed Last Taken Type clindamycin HCL [Clindamycin HCl] 600 mg PEG QID #40 cap 06/19/22 Unknown Rx Current Medications Discontinued Medications Generic Name Dose Route Start Last Admin Trade Name Freq PRN Reason Stop Dose Admin Acetaminophen 800 mg 06/17/22 15:54 Acetaminophen 160 Mg/5 Ml Bottle PO 07/17/22 15:53 Q4HPRN PRN PAIN AND/OR FEVER Acetylcysteine 800 mg 06/18/22 19:00 06/19/22 12:54 Acetylcysteine 200 Mg/Ml 30 Ml Vial IH 07/18/22 18:59 800 mg TIDRT JESSICA Administration Albuterol/Ipratropium 3 ml 06/17/22 14:13 06/17/22 14:40 Ipratropium/Albuterol Sulfate 3 Ml Ampul.Neb 06/17/22 14:14 3 ml STAT ONE Administration Albuterol/Ipratropium Confirm 06/17/22 14:25 Ipratropium/Albuterol Sulfate 3 Ml Ampul.Neb Administered 06/17/22 14:26 Dose 3 ml IH .STK-MED ONE Albuterol/Ipratropium 3 ml 06/17/22 19:00 06/19/22 12:54 Ipratropium/Albuterol Sulfate 3 Ml Ampul.Neb 07/17/22 18:59 3 ml Q6HRT JESSICA Administration Methylprednisolone Sodium 0 mg 06/17/22 14:13 06/17/22 14:41 Succinate 125 mg/ Sterile IV 06/17/22 14:14 125 mg Water 2 ml STAT ONE Administration Device 1 06/18/22 20:00 Therapuetic Drug Level Monitor Each IJ 06/18/22 20:01 1XONLY ONE Clindamycin HCl/Dextrose 600 mg in 50 mls @ 100 mls/hr 06/17/22 12:07 06/17/22 12:59 Clindamycin-D5w 600 Mg/50 Ml IV 06/17/22 12:36 Infused STAT STA Infusion Meropenem 1 gm/ Sodium 100 mls @ 200 mls/hr 06/17/22 12:10 06/17/22 12:29 Chloride IV 06/17/22 12:39 200 mls/hr STAT ONE Administration Sodium Chloride 1,000 mls @ 999 mls/hr 06/17/22 12:14 06/17/22 13:30 Sodium Chloride 0.9% 1000 Ml IV 06/17/22 13:14 Infused .Q1H1M STA Infusion Sodium Chloride Confirm 06/17/22 12:25 Sodium Chloride 100ml Mini-Bag Plus Administered 06/17/22 12:26 Dose 100 mls @ ud IV .STK-MED ONE Sodium Chloride Confirm 06/17/22 12:25 Sodium Chloride 0.9% 1000 Ml Administered 06/17/22 12:26 Dose 1,000 mls @ ud .ROUTE .STK-MED ONE Clindamycin HCl/Dextrose Confirm 06/17/22 12:25 Clindamycin-D5w 600 Mg/50 Ml Administered 06/17/22 12:26 Dose 600 mg in 50 mls @ ud IV .STK-MED ONE Sodium Chloride 1,000 mls @ 999 mls/hr 06/17/22 12:45 06/17/22 14:32 Sodium Chloride 0.9% 1000 Ml IV 06/17/22 13:45 Infused .Q1H1M STA Infusion Sodium Chloride 500 mls @ 500 mls/hr 06/17/22 12:45 06/17/22 14:05 Sodium Chloride 0.9% 500 Ml IV 06/17/22 13:44 Infused .Q1H ONE Infusion Sodium Chloride Confirm 06/17/22 13:04 Sodium Chloride 0.9% 500 Ml Administered 06/17/22 13:05 Dose 500 mls @ ud IV .STK-MED ONE Magnesium Sulfate/Dextrose 100 mls @ 100 mls/hr 06/17/22 13:30 06/17/22 14:04 Magnesium 1 Gm / 100 Ml D5w IV 06/17/22 15:29 100 mls/hr Q1H JESSICA Administration Sodium Chloride Confirm 06/17/22 13:24 Sodium Chloride 0.9% 1000 Ml Administered 06/17/22 13:25 Dose 1,000 mls @ ud .ROUTE .STK-MED ONE Magnesium Sulfate/Dextrose Confirm 06/17/22 13:24 Magnesium 1 Gm / 100 Ml D5w Administered 06/17/22 13:25 Dose 100 mls @ ud IV .STK-MED ONE Magnesium Sulfate/Dextrose Confirm 06/17/22 14:03 Magnesium 1 Gm / 100 Ml D5w Administered 06/17/22 14:04 Dose 100 mls @ ud IV .STK-MED ONE Sodium Chloride 1,000 mls @ 100 mls/hr 06/17/22 15:12 06/18/22 01:38 Sodium Chloride 0.9% 1000 Ml IV 07/17/22 15:11 100 mls/hr .Q10H JESSICA Administration Clindamycin HCl/Dextrose 600 mg in 50 mls @ 100 mls/hr 06/17/22 22:00 06/19/22 14:50 Clindamycin-D5w 600 Mg/50 Ml IV 07/17/22 21:59 100 mls/hr Q8HT JESSICA Administration Meropenem 1 gm/ Sodium 100 mls @ 200 mls/hr 06/17/22 22:00 06/19/22 14:08 Chloride IV 06/20/22 21:59 200 mls/hr Q8HT JESSICA Administration Ibuprofen 500 mg 06/17/22 15:50 Ibuprofen 100 Mg/5 Ml Oral.Susp PO 07/17/22 15:49 Q6HPRN PRN PAIN AND/OR FEVER Levetiracetam 500 mg 06/17/22 22:00 06/19/22 09:03 Levetiracetam 500 Mg Tablet PEG 07/17/22 21:59 500 mg BID JESSICA Administration Meropenem Confirm 06/17/22 12:24 Meropenem 1 Gm Vial Administered 06/17/22 12:25 Dose 1 gm IV .STK-MED ONE Methylprednisolone Sodium Succinate Confirm 06/17/22 14:34 Methylprednis Sod Succ 125 Mg/2 Ml Vial Administered 06/17/22 14:35 Dose 125 mg .ROUTE .STK-MED ONE Multivitamins 15 ml 06/18/22 10:00 06/19/22 09:03 Multivitamin Liquid 1 Ml G-TUBE 07/18/22 09:59 15 ml DAILY JESSICA Administration Mupirocin 0 gm 06/17/22 16:00 Mupirocin 22 Gm Tube Ointment TP 07/17/22 15:59 UD JESSICA Pantoprazole Sodium 40 mg 06/17/22 16:00 06/19/22 09:03 Pantoprazole 40 Mg Vial IV 07/17/22 15:59 40 mg Q24H10 JESSICA Administration Baclofen Pump 0 each 06/17/22 16:00 IJ 07/17/22 15:59 UD JESSICA Sterile Water Confirm 06/17/22 14:34 Water For Injection,Sterile 10 Ml Vial Administered 06/17/22 14:35 Dose 10 ml IJ .STK-MED ONE Tizanidine HCl 0 mg 06/17/22 15:56 06/18/22 13:34 Tizanidine Hcl 4 Mg Tablet G-TUBE 07/17/22 15:55 4 mg DAILY PRN PRN Administration MUSCLE SPASMS Tobramycin Sulfate 300 mg 06/18/22 19:00 06/19/22 06:52 Tobramycin Sulfate 80mg/2ml Vial IH 07/18/22 18:59 300 mg BIDRT JESSICA Administration Valproate Sodium 250 mg 06/18/22 10:00 06/19/22 10:39 Valproic Acid 250 Mg/5 Ml Oral Solution G-TUBE 07/18/22 09:59 250 mg QAM JESSICA Administration Valproate Sodium 500 mg 06/17/22 22:00 06/18/22 22:00 Valproic Acid 250 Mg/5 Ml Oral Solution G-TUBE 07/17/22 21:59 500 mg HS JESSICA Administration Intake & Output (Last 24 hours) 06/17/22 06/18/22 06/19/22 06/20/22 11:59 11:59 11:59 11:59 Intake Total 1437 939 0 Output Total 1500 1350 1200 Balance -1500 87 -261 0 Weight 85.275 kg 73.4 kg 73.4 kg Microbiology Results (Last 24 hours) 06/17/22 12:55 Urine, Void Urine Culture - Final NO GROWTH 06/17/22 12:23 Blood Blood Culture Gram Stain - Final Not Reportable 06/17/22 12:23 Blood Blood Culture - Preliminary NO GROWTH TO DATE 06/17/22 12:20 Blood Blood Culture Gram Stain - Final Not Reportable 06/17/22 12:20 Blood Blood Culture - Preliminary NO GROWTH TO DATE Laboratory Results (Last 24 hours) 06/19/22 06/19/22 05:08 05:08 WBC 12.8 H RBC 2.86 L Hgb 9.7 L Hct 30.4 L MCV 106.3 H MCH 33.9 H MCHC 31.9 L RDW 16.9 H Plt Count 74 L MPV 12.8 H Gran % 80.6 H Immature Gran % (Auto) 0.5 H Nucleat RBC Rel Count 0.0 Eos # (Auto) 0.05 Immature Gran # (Auto) 0.07 H Absolute Lymphs (auto) 1.83 Absolute Monos (auto) 0.51 Absolute Nucleated RBC 0.00 Lymphocytes % 14.3 L Monocytes % 4.0 Eosinophils % 0.4 Basophils % 0.2 Absolute Granulocytes 10.34 H Basophils # 0.03 Sodium 141 Potassium 3.7 D Chloride 107 Carbon Dioxide 30 Anion Gap 8.0 BUN 18 Creatinine 0.26 L Estimated GFR > 60.0 Glucose 71 L Calcium 8.7 Total Bilirubin 0.80 AST 23 ALT 19 Alkaline Phosphatase 94 Serum Total Protein 6.3 Albumin 3.2 L Slides for Path Review YES Orders (Last 24 hours) Category Date Time Status Jevity Diet 06/19/22 Breakfast Completed Discharge Routine Discharge 06/19/22 Ordered CHEST 1 VIEW (PORTABLE) DAILY Exams 06/19/22 08:40 Completed CBC W DIFF AM.LAB Lab 06/19/22 05:08 Completed CMP AM.LAB Lab 06/19/22 05:08 Completed Therapuetic Drug Level Monitor [Trough Drug Levels] Med 06/18/22 20:00 D iscontinued 1 IJ 1XONLY ONE Patient Care Notes (Last 24 hours) 06/19/22 12:57 Case Management Note by Joann Sanderson S/W MOTHER- SHE CONTINUES TO DENY ANY NEW NEEDS AT TIME OF DC. SHE PLANS FOR PATIENT TO RETURN HOME TO HER CARE Initialized on 06/19/22 12:57 - END OF NOTE Code(s): J18.9 - PNEUMONIA, UNSPECIFIED ORGANISM - Discharge Discharge Date: 06/19/22 Disposition: Home, Self-Care Condition: Stable Prescriptions: New clindamycin HCL [Clindamycin HCl] 600 mg PEG QID #40 cap Continue Valproic Acid [Depakene] 500 mg G-TUBE HS Baclofen [Lioresal Intrathecal] 428 gm INTRATHEC DAILY Valproic Acid [Depakene] 250 mg G-TUBE QAM Multivit-Min/Ferrous Fumarate [Multivitamin Liquid] 30 ml G-TUBE DAILY Tizanidine HCl 4 - 8 mg G-TUBE DAILY PRN PRN PRN Reason: Muscle Spasms Acetaminophen [Children's Acetaminophen] 25 ml PO Q4HPRN PRN PRN Reason: Pain And/Or Fever Ibuprofen [Children's Ibuprofen] 25 ml PO Q6HPRN PRN PRN Reason: Pain And/Or Fever Levetiracetam 500 MG/5 ML [Keppra 500 MG/5 ML] 5 ml PEG BID Mupirocin [Bactroban OINTMENT] 0 gm TP UD Instructions: Aspiration Pneumonia (DC) Follow up with: SOSA BRICEÑO [Primary Care Provider] - 06/27/22 2:15 pm Forms: Discharge Instructions
[2022-06-20 14:40] VITALS: O2SAT 93
== END 2022-06-19 15:45 | disposition home or self-care (01) | DRG 189 ==
LOC: ED 11:39 → MED SURG 15:10 → OBSVTOIN 16:37
PROVIDERS: ADMIT General Practice; ATTEND General Practice
DX: J96.01 Acute respiratory failure with hypoxia (principal); J18.9 Pneumonia, unspecified organism; R00.0 Tachycardia, unspecified; Z79.899 Other long term (current) drug therapy; Z20.828 Contact with and (suspected) exposure to other viral communicable diseases; Z87.820 Personal history of traumatic brain injury
CPT/HCPCS: 0241U; 36000; 36415; 51702; 71045; 80053; 81015; 83605; 83735; 84134; 84145; 85025; 87040; 87086; 93005; 93041; 94640; 94762; 96360; 96365; 96367; 96368; 96374; 99285; J2930; J3260; J3475; A9270-GY

== ENCOUNTER 2022-07-13 13:16 | Emergency (ER) | payer MEDICAID ==
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
[2022-07-13 13:42] VITALS: PULSE 78; O2SAT 95
[2022-07-13] MEDS ORDERED: CLEOCIN 150 MG CAPSULE PEG ONE (14:01)
[2022-07-13] MEDS ORDERED: CLEOCIN 150 MG CAPSULE ONE (14:04)
== END 2022-07-13 14:20 | disposition home or self-care (01) ==
LOC: ED 13:16
DX: J06.9 Acute upper respiratory infection, unspecified (principal); R09.81 Nasal congestion; Z79.899 Other long term (current) drug therapy
CPT/HCPCS: 99281; A9270-GY

== ENCOUNTER 2022-07-26 09:33 | Emergency (ER) | payer MEDICAID ==
[2022-07-26] MEDS ORDERED: DUONEB 0.5-3 MG/3 ml Neb IH ONE ×2 (09:42)
[2022-07-26 10:00] LABS: Absolute Neutrophil Ct (ANC) 5.51 x10^3/uL (1.4-6.9); Basophil (Absolute #) 0 x10^3/uL (0-0.4); Eosinophil % 0.8 % (0.00-5.0); Eosinophil (Absolute #) 0.06 x10^3/uL (0-0.5); Hematocrit 41.3 % (42-50); Hemoglobin 13.6 g/dL (12.5-18.0); Lymphocyte (Absolute #) 1.29 x10^3/uL (1.0-4.6); Mean Corpuscular Hemoglobin 33.9 pg (26-32); Mean Corpuscular Hgb Concent. 32.9 g/dL (32-36); Mean Platelet Volume 12.5 fL (7.5-11.0); Monocyte (Absolute #) 0.28 x10^3/uL (0.0-1.3); Monocytes % 3.9 % (0.0-12.0); Platelet Count 48 x10^3/uL (150-450); Red Blood Count 4.01 x10^6/uL (4.1-5.6); Red Cell Distribution Width 15.9 % (11.5-14.0); White Blood Count 7.2 x10^3/uL (4.0-10.5)
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
[2022-07-26 10:25] LABS: INR 0.97 (0.8-3.0); PROTIME 10.3 SECONDS (9.4-12.5); PTT 34.2 SECONDS (25.1-36.5)
[2022-07-26 10:27] LABS: ALBUMIN 4.1 g/dL (3.5-5.0); ALKALINE PHOSPHATASE 124 U/L (38-126); ANION GAP 8.7 MEQ/L (5-15); BLOOD UREA NITROGEN 10 mg/dL (9-20); CHLORIDE 100 mmol/L (98-107); Calcium 9.5 mg/dL (8.4-10.2); Carbon Dioxide 37 mmol/L (22-30); Creatinine 1 0.27 mg/dL (0.66-1.25); EST GLOMERULAR FILTRATION RATE > 60.0 ML/MIN; Glucose 89 mg/dL (74-106); MAGNESIUM 1.6 mg/dL (1.6-2.3); NT PRO BNP 50.2 pg/mL (0-450); Potassium 3.7 mmol/L (3.5-5.1); SGOT/AST 41 U/L (17-59); SGPT/ALT 42 U/L (0-50); SODIUM 142 mmol/L (137-145); Total Protein 7.8 g/dL (6.3-8.2)
[2022-07-26 10:46] LABS: Slide Review 1 YES
[2022-07-26 10:47] LABS: INFLUENZA A NEGATIVE (NEGATIVE); INFLUENZA B NEGATIVE (NEGATIVE); RESPIRATORY SYNCTIAL VIRUS NEGATIVE (Negative); SARS-CoV-2 Xpert Express NEGATIVE (NEGATIVE)
--- NOTE | 2022-07-26 10:55 | XRAY ---
Indication: Dyspnea. Comparison: June 19, 2022 Portable chest demonstrates new complete opacification left hemithorax either effusion versus infiltrate/atelectasis versus combination. Cardiac silhouette obscured. Continued right hemidiaphragm elevation with right base subsegmental atelectasis and tiny effusion, both less than before. Stable levorotoscoliosis, epidural catheter, and [employer] shunt catheter.
[2022-07-26] MEDS ORDERED: ROCEPHIN 1 Gm-D5w 50 ml Bag** 1 G/50 ML IVPB IV STA (11:34)
[2022-07-26] MEDS ORDERED: ROCEPHIN 1 Gm-D5w 50 ml Bag** 1 G/50 ML IVPB IV ONE (11:35)
[2022-07-26 12:07] LABS: Bacteria RARE /HPF (NEGATIVE); Epithelial Cells RARE /HPF (FEW); Mucus MANY /HPF (NEGATIVE); WBC 0-2 /HPF (0-5)
[2022-07-26 12:09] LABS: Appearance SLIGHTLY CLOUDY (CLEAR); Bilirubin NEGATIVE (NEGATIVE); Dipstick done @ ? MAIN LAB; Glucose NEGATIVE (NEGATIVE); Ketones TRACE (NEGATIVE); Nitrite NEGATIVE (NEGATIVE); Ph 6.5 (5-6); Protein,Urine Dip 30 (Negative); RBC NEGATIVE Ery/ul (0-5); Specific Gravity >=1.030 (1.005-1.025); Urobilinogen 0.2 mg/dL (0-1)
[2022-07-26 12:10] LABS: Urine Cultured Indicated? NO
[2022-07-26] MEDS ORDERED: solu-MEDROL 125 MG, Sterile H2O 10 ml 2 ML IV ONE ×2 (13:29)
[2022-07-26] MEDS ORDERED: Sterile H2O 10 ml IJ ONE (13:33)
[2022-07-26] MEDS ORDERED: solu-MEDROL ONE (13:33)
[2022-07-26 17:04] VITALS: BP 118/76; PULSE 100
[2022-07-26 18:50] VITALS: O2SAT 93
== END 2022-07-26 17:18 | disposition home or self-care (01) ==
LOC: ED 09:33
DX: J18.9 Pneumonia, unspecified organism (principal); R06.02 Shortness of breath; Z79.899 Other long term (current) drug therapy; Z20.828 Contact with and (suspected) exposure to other viral communicable diseases; Z87.820 Personal history of traumatic brain injury
CPT/HCPCS: 0241U; 36000; 36415; 51702; 71045; 80053; 81015; 83605; 83735; 83880; 84484; 85025; 85610; 85730; 93005; 94640; 96365; 96374; 99284; 96375; J0696; J2930; A9270-GY